=== PATIENT | male | born 1975 | race Caucasian/White ===

== ENCOUNTER 2016-09-25 13:01 | Emergency (ER) | payer MEDICARE, MEDICAID ==
[2016-09-25] MEDS ORDERED: OXYCODONE-ACETAMINOPHEN 5-325 MG TABLET PO ONE (13:11)
--- NOTE | 2016-09-25 13:11 | ER Document Report ---
ED Medical Screen (RME) - General Stated Complaint: BACK PAIN Notes: onset 2 days ago, c/o left flank pain. sharp stabbing pain that radiates to the front into his groin. admits to pain with urination, hematuria and dark urine, now yellow. denies any recent heavy lifting, trauma, fall denies h/o renal stone, pyelonephritis, rhabdo I have greeted and performed a rapid initial assessment of this patient. A comprehensive ED assessment and evaluation of the patient, analysis of test results and completion of the medical decision making process will be conducted by additional ED providers. TRAVEL OUTSIDE OF THE [place] IN LAST 30 DAYS: No - Related Data Allergies/Adverse Reactions: zolpidem tartrate [From Ambien] Allergy (Verified 09/25/16 13:04) Past Medical History - Past Medical History Cardiac Medical History: Reports: Hx Hypertension Pulmonary Medical History: Reports: Hx Pneumonia GI Medical History: Reports: Hx Gastroesophageal Reflux Disease, Hx Ulcer Psychiatric Medical History: Reports: Hx Depression Past Surgical History: Reports: Hx Orthopedic Surgery - spine x9 - Immunizations Hx Diphtheria, Pertussis, Tetanus Vaccination: Yes Physical Exam - Vital signs Vitals: Temp Pulse Resp BP Pulse Ox 97.5 F 91 18 155/104 H 100 09/25/16 13:06 09/25/16 13:06 09/25/16 13:06 09/25/16 13:06 09/25/16 13:06 Course - Vital Signs Vital signs: Temp Pulse Resp BP Pulse Ox 97.5 F 91 18 155/104 H 100 09/25/16 13:06 09/25/16 13:06 09/25/16 13:06 09/25/16 13:06 09/25/16 13:06
[2016-09-25] MEDS ORDERED: ONDANSETRON 4 MG TAB.RAPDIS PO ONE (13:13)
[2016-09-25 13:46] LABS: ABSOLUTE BASOPHILS # (AUTO) 0.1 10^3/uL (0.0-0.2); ABSOLUTE EOSINOPHILS # (AUTO) 0.1 10^3/uL (0.0-0.6); ABSOLUTE LYMPHOCYTES (AUTO) 1.5 10^3/uL (0.5-4.7); ABSOLUTE MONOCYTES (AUTO) 0.4 10^3/uL (0.1-1.4); ABSOLUTE NEUT (AUTO) 4.7 10^3/uL (1.7-8.2); BASOPHILS % (AUTO) 1.1 % (0-2); EOSINOPHILS % (AUTO) 1.4 % (0-6); HEMATOCRIT 41.9 % (37.9-51.0); HEMOGLOBIN 13.8 g/dL (13.5-17.0); HGB HCT DIFFERENCE -0.5; LYMPHOCYTES % (AUTO) 22.4 % (13-45); MEAN CORPUSCULAR HEMOGLOBIN 29.9 pg (27.0-33.4); MEAN CORPUSCULAR HGB CONC 33.1 g/dL (32.0-36.0); MEAN CORPUSCULAR VOLUME 90 fl (80-97); MONOCYTES % (AUTO) 5.5 % (3-13); RED BLOOD COUNT 4.64 10^6/uL (4.35-5.55); RED CELL DISTRIBUTION WIDTH 15.4 % (11.5-14.0); SEGMENTED NEUTROPHILS % (AUTO) 69.6 % (42-78); WHITE BLOOD COUNT 6.8 10^3/uL (4.0-10.5)
[2016-09-25 13:47] LABS: APPEARANCE,URINE CLEAR; BILIRUBIN,URINE NEGATIVE (NEGATIVE); GLUCOSE, URINE NEGATIVE (NEGATIVE); KETONES,URINE NEGATIVE (NEGATIVE); LEUKOCYTE ESTERASE,URINE NEGATIVE (NEGATIVE); NITRITE,URINE NEGATIVE (NEGATIVE); PROTEIN,URINE NEGATIVE (NEGATIVE); URINE SPECIFIC GRAVITY 1.001; UROBILINOGEN,URINE NEGATIVE mg/dL (<2.0)
[2016-09-25 14:00] LABS: ALANINE AMINOTRANSFERASE 22 U/L (21-72); ALBUMIN 4.7 g/dL (3.5-5.0); ALKALINE PHOSPHATASE 74 U/L (38-126); ANION GAP 11 (5-19); ASPARTATE AMINO TRANSFERASE 14 U/L (17-59); BILIRUBIN,TOTAL 0.5 mg/dL (0.2-1.3); BLOOD UREA NITROGEN 10 mg/dL (7-20); CALCIUM 9.8 mg/dL (8.4-10.2); CARBON DIOXIDE 27 mmol/L (22-30); CHLORIDE 106 mmol/L (98-107); CREATINE KINASE 46 U/L (55-170); CREATININE RESULT 0.77 mg/dL (0.52-1.25); GLUCOSE 93 mg/dL (75-110); POTASSIUM 4.4 mmol/L (3.6-5.0); SODIUM 144.2 mmol/L (137-145); TOTAL PROTEIN 7.8 g/dL (6.3-8.2)
--- NOTE | 2016-09-25 15:21 | ER Document Report ---
ED General - General Chief Complaint: Flank Pain Stated Complaint: BACK PAIN Mode of Arrival: Ambulatory Information source: Patient Notes: Patient is a 41 yo male who presents with 2 day history of left flank pain, described as sharp and stabbing that radiates to his groin. He endorses associated nausea, dysuria, hematuria and discoloration of urine and yesterday, he describes a sensation of "urinating sand spurs" that resolved suddenly. He denies any history of kidney stones. Denies fever, chills, vomiting, diarrhea, abdominal/groin mass, penile discharge or testicular pain. He has tried tylenol and ibuprofen without relief. TRAVEL OUTSIDE OF THE [place] IN LAST 30 DAYS: No - Related Data Allergies/Adverse Reactions: zolpidem tartrate [From Ambien] Allergy (Verified 09/25/16 13:04) Past Medical History - Social History Smoking Status: Current Every Day Smoker Chew tobacco use (# tins/day): Yes - 1/2ppd Frequency of alcohol use: None Drug Abuse: None Family History: Reviewed & Not Pertinent Patient has suicidal ideation: No Patient has homicidal ideation: No - Past Medical History Cardiac Medical History: Reports: Hx Hypertension Pulmonary Medical History: Reports: Hx Pneumonia Renal/ Medical History: Denies: Hx Peritoneal Dialysis GI Medical History: Reports: Hx Gastroesophageal Reflux Disease, Hx Ulcer Psychiatric Medical History: Reports: Hx Depression Past Surgical History: Reports: Hx Orthopedic Surgery - spine x9 - Immunizations Hx Diphtheria, Pertussis, Tetanus Vaccination: Yes Review of Systems - Review of Systems Constitutional: See HPI EENT: No symptoms reported Cardiovascular: No symptoms reported Respiratory: No symptoms reported Gastrointestinal: See HPI Genitourinary: See HPI Male Genitourinary: No symptoms reported Musculoskeletal: No symptoms reported Skin: No symptoms reported Hematologic/Lymphatic: No symptoms reported Neurological/Psychological: No symptoms reported Physical Exam - Vital signs Vitals: Temp Pulse Resp BP Pulse Ox 97.5 F 88 18 155/104 H 100 09/25/16 13:04 09/25/16 13:04 09/25/16 13:04 09/25/16 13:04 09/25/16 13:04 Interpretation: Hypertensive - Notes Notes: PHYSICAL EXAM: CONSTITUTIONAL: Alert and oriented, well-appearing and in no acute distress. Appears uncomfortable. HENT: Normocephalic, atraumatic. Moist mucous membranes. EYES: Pupils equal round and reactive to light, EOM intact. Sclera anicteric, conjunctiva are normal. No entrapment. HEART: Regular rate and rhythm without murmurs. LUNGS: CTAB and equal. No wheezes, rales or rhonchi. GI: Normactive bowel sounds. Nontender, non-distended. No organomegaly. + L CVAT. BACK: tender to palpation of left lumbar musculature with mild paraspinous spasm , 5+/5 strengths, DTRs 2+, SLR -. EXTREMITIES: Normal range of motion, no pitting edema. No cyanosis. Cap Refill < 3 seconds. NEURO: Cranial nerves grossly intact. Normal sensory/motor exams. PSYCH: Normal mood, normal affect. SKIN: Warm and dry. Normal turgor. No rashes or lesions noted. Course - Re-evaluation Re-evalutation: 09/25/16 15:21 I have consulted with the supervisory physician per [facility] guidelines. 09/25/16 15:23 Reviewed lab work and imaging studies - no leukocytosis, urinalysis is unremarkable, chem panel within normal limits. CT of A/P w/o cont is negative for nephrolithiasis or other acute abnormalities/findings. Exam consistent with lumbar back pain and muscle spasms. Based on history, suspect patient most likely has already passed stone. He states he has script for flexeril at home. Will discharge home in stable condition with script for pain med. Follow-up with PMD. - Vital Signs Vital signs: Temp Pulse Resp BP Pulse Ox 97.3 F 80 18 137/87 H 99 09/25/16 15:30 09/25/16 15:30 09/25/16 15:30 09/25/16 15:30 09/25/16 15:30 - Laboratory Result Diagrams: 09/25/16 13:25 09/25/16 13:25 Laboratory results interpreted by me: 09/25/16 09/25/16 13:25 13:25 RDW 15.4 H AST 14 L Creatine Kinase 46 L Discharge - Discharge Clinical Impression: Muscle spasm of back Low back pain Qualifiers: Chronicity: acute Back pain laterality: left Sciatica presence: without sciatica Qualified Code(s): M54.5 - Low back pain Condition: Stable Disposition: HOME, SELF-CARE Additional Instructions: LOW BACK PAIN: Three out of every four people will have an episode of disabling back pain during their lifetime. Most commonly the pain is due to straining of the muscles and ligaments in the low back. Usual treatment includes: (1) Rest on a firm surface. Avoid lying on your stomach. (2) Ice pack the painful area. After a few days, gentle heat may be used intermittently to relax the area, or ice packs can be continued. (3) Medication may be needed -- muscle relaxers and antiinflammatory medicines are commonly used. (4) As the back improves, exercises are prescribed to strengthen the back and abdominal muscles. Your doctor will advise you on the proper care for your back at each stage in your recovery. You may be better in a few days -- or healing may take several weeks. If new symptoms of a "herniated disc" (radiation of pain, numbness, or tingling down the back of the leg or weakness in the leg) occur, you should be re-examined. Further testing may be necessary. ORAL NARCOTIC MEDICATION: You have been given a prescription for pain control. This medication is a narcotic. It's best taken with food, as nausea can result if taken on an empty stomach. Don't operate machinery or drive within six hours of taking this medication. Do not combine this medicine with alcohol, or with any medication which can cause sedation (such as cold tablets or sleeping pills) unless you get permission from the physician. Narcotics tend to cause constipation. If possible, drink plenty of fluids and eat a diet high in fiber and fruits. Please be aware that prescription narcotics also have the potential for abuse. People become addicted to these medications because of the general sense of wellbeing that they induce. This feeling along with a significant reduction in tension, anxiety, and aggression provides a stimulating seductive quality to these drugs. Once your pain is under control, we encourage you to discard your unused narcotics. MUSCLE RELAXERS: Muscle relaxing medications are usually prescribed for acute muscle spasm or injury to the neck and back. They are often combined with antiinflammatory pain medication for increased relief. You may stop the muscle relaxer when the pain and stiffness have improved. Start the medication again if spasms recur. Muscle relaxers may cause drowsiness, especially with the first dose. Do not operate machinery or drive while under the effects of the medication. Most muscle relaxers last up to 24 hours. Do not combine the medication with alcohol. ICE PACKS: Apply ice packs frequently against the painful area. Many different schedules are recommended, such as "20 minutes on, 20 minutes off" or "one hour ice, two hours rest." If you need to work, you may need to go longer between ice treatments. You should plan to have the area ice packed AT LEAST one fourth of the time. The ice should be applied over the wrap, tape, or splint, or over a layer of cloth -- not directly against the skin. Some ice bags have a built-in cloth and can be put directly on the skin. WARM PACKS: After approximately two days, apply gentle heat (such as a heating pad or hot water bottle) for about 20 to 30 minutes about every two hours -- at least four times daily. Warmth and elevation will help you make a more rapid recovery , and will ease the pain considerably. Do not use HOT heat, and never apply heat for longer than 30 minutes. The continuous heat can invisibly damage skin and muscles -- even when no burn is seen on the surface. Damaged muscles can make you MORE sore. FOLLOW-UP CARE: If you have been referred to a physician for follow-up care, call the physician s office for an appointment as you were instructed or within the next two days. If you experience worsening or a significant change in your symptoms, notify the physician immediately or return to the Emergency Department at any time for re-evaluation. Prescriptions: Tramadol HCl [Ultram] 50 mg PO Q8HP PRN #10 tablet PRN Reason: Naproxen [Naprosyn 250 mg Tablet] 250 mg PO DAILY PRN #14 tablet PRN Reason: Forms: Elevated Blood Pressure Referrals: GODFREY TERRAZAS MD [Primary Care Provider] - Follow up as needed
[2016-09-25 15:36] VITALS: BP 137/87
== END 2016-09-25 15:30 | disposition home or self-care (01) ==
LOC: ER 13:01
DX: M54.5 Low back pain (principal); M62.830 Muscle spasm of back; R11.0 Nausea; R30.0 Dysuria; R31.9 Hematuria, unspecified; I10 Essential (primary) hypertension; F17.200 Nicotine dependence, unspecified, uncomplicated; Z88.8 Allergy status to other drugs, medicaments and biological substances
CPT/HCPCS: 99284; 36415; 82550; 85025; 80053; 81001; 74176; A9270 ×2; S0119

== ENCOUNTER 2016-09-29 15:28 | Emergency (ER) | payer MEDICARE, MEDICAID ==
--- NOTE | 2016-09-29 15:42 | ER Document Report ---
ED Medical Screen (RME) - General Stated Complaint: GENERALIZED WEAKNESS Time seen by provider: 15:37 Mode of Arrival: Medic Information source: Patient Notes: 41-year-old male presents to ED from home via EMS for generalized pain with numbness in the right leg which is new, left leg is normally numb. He complains of chest pain that is reproducible radiating down his left arm since last night worse today. States yesterday he was stumbling around because of his legs being numb. states she gave him 4 baby aspirin. He states he took 2 of his clonidine. Blood pressure in RME is 156/109. In the EMS it was 210/100. I have greeted and performed a rapid initial assessment of this patient. A comprehensive ED assessment and evaluation of the patient, analysis of test results and completion of medical decision making process will be conducted by an additional ED providers. TRAVEL OUTSIDE OF THE [place] IN LAST 30 DAYS: No - Related Data Allergies/Adverse Reactions: zolpidem tartrate [From Ambien] Allergy (Verified 09/25/16 13:04) Past Medical History - Past Medical History Cardiac Medical History: Reports: Hx Hypertension Pulmonary Medical History: Reports: Hx Pneumonia Renal/ Medical History: Denies: Hx Peritoneal Dialysis GI Medical History: Reports: Hx Gastroesophageal Reflux Disease, Hx Ulcer Psychiatric Medical History: Reports: Hx Depression Past Surgical History: Reports: Hx Orthopedic Surgery - spine x9 - Immunizations Hx Diphtheria, Pertussis, Tetanus Vaccination: Yes
[2016-09-29 16:20] LABS: ABSOLUTE EOSINOPHILS # (AUTO) 0.1 10^3/uL (0.0-0.6); ABSOLUTE LYMPHOCYTES (AUTO) 1.9 10^3/uL (0.5-4.7); ABSOLUTE MONOCYTES (AUTO) 0.3 10^3/uL (0.1-1.4); ABSOLUTE NEUT (AUTO) 4.9 10^3/uL (1.7-8.2); BASOPHILS % (AUTO) 0.4 % (0-2); EOSINOPHILS % (AUTO) 1.9 % (0-6); HEMATOCRIT 40.4 % (37.9-51.0); HEMOGLOBIN 13.2 g/dL (13.5-17.0); HGB HCT DIFFERENCE -0.8; LYMPHOCYTES % (AUTO) 26.4 % (13-45); MEAN CORPUSCULAR HEMOGLOBIN 29.2 pg (27.0-33.4); MEAN CORPUSCULAR HGB CONC 32.6 g/dL (32.0-36.0); MEAN CORPUSCULAR VOLUME 90 fl (80-97); MONOCYTES % (AUTO) 4.3 % (3-13); RED BLOOD COUNT 4.51 10^6/uL (4.35-5.55); RED CELL DISTRIBUTION WIDTH 15.1 % (11.5-14.0); WHITE BLOOD COUNT 7.3 10^3/uL (4.0-10.5)
[2016-09-29 16:40] LABS: ALANINE AMINOTRANSFERASE 27 U/L (21-72); ALKALINE PHOSPHATASE 86 U/L (38-126); ANION GAP 10 (5-19); ASPARTATE AMINO TRANSFERASE 30 U/L (17-59); BILIRUBIN,TOTAL 0.3 mg/dL (0.2-1.3); BLOOD UREA NITROGEN 4 mg/dL (7-20); CALCIUM 9.4 mg/dL (8.4-10.2); CARBON DIOXIDE 28 mmol/L (22-30); CHLORIDE 106 mmol/L (98-107); CREATINE KINASE 605 U/L (55-170); CREATININE RESULT 0.81 mg/dL (0.52-1.25); GLUCOSE 97 mg/dL (75-110); MAGNESIUM 2.1 mg/dL (1.6-2.3); SODIUM 143.9 mmol/L (137-145); TOTAL PROTEIN 7.4 g/dL (6.3-8.2)
[2016-09-29 16:52] LABS: CREATINE KINASE MB 8.45 ng/mL (<4.55)
[2016-09-29 16:53] LABS: TROPONIN I < 0.012 ng/mL
[2016-09-29] MEDS ORDERED: DIPHENHYDRAMINE HCL 50 MG/ML VIAL IV ONE (18:00)
[2016-09-29] MEDS ORDERED: METOCLOPRAMIDE HCL INJ/PF 10 MG/2 ML SDV IV ONE (18:00)
[2016-09-29] MEDS ORDERED: NORMAL SALINE 1000 ML 1,000 ML IV PRN (18:00)
--- NOTE | 2016-09-29 18:00 | ER Document Report ---
ED General - General Chief Complaint: Pain All Over Stated Complaint: GENERALIZED WEAKNESS Time seen by provider: 17:57 Mode of Arrival: Medic Information source: Patient - Patient's sister, Relative Notes: This is a 41-year-old man with a history of chronic back pain after multiple surgeries (he does have a back stimulator device), currently under a lot of stress after losing his home and breaking up with his . He is currently living with his sister. He is brought in by EMS because of headache, chest pain , off balance, bad headache. He does state that he has a history of headaches and the sister confirms that there is a family history of most likely migraines. Patient states that these headaches get bad and it is bad now. He denies fever. Patient's sister states she gave him an extra clonidine because his blood pressure was elevated. TRAVEL OUTSIDE OF THE [place] IN LAST 30 DAYS: No - HPI Onset: Last week Onset/Duration: Gradual Quality of pain: Dull Severity: Severe Pain Level: 4 Associated symptoms: Other. denies: Chills, Nonproductive cough, Productive cough, Fever, Shortness of breath Exacerbated by: Movement - Chest wall pain Relieved by: Denies Similar symptoms previously: No Recently seen / treated by doctor: No - Related Data Allergies/Adverse Reactions: zolpidem tartrate [From Ambien] Allergy (Verified 09/29/16 15:41) Past Medical History - General Information source: Patient - Social History Smoking Status: Current Every Day Smoker Cigarette use (# per day): No Chew tobacco use (# tins/day): Yes - 1.5 ppd Frequency of alcohol use: None Drug Abuse: None Lives with: Family Family History: Reviewed & Not Pertinent Patient has suicidal ideation: No Patient has homicidal ideation: No - Past Medical History Cardiac Medical History: Reports: Hx Hypertension Pulmonary Medical History: Reports: Hx Pneumonia Renal/ Medical History: Denies: Hx Peritoneal Dialysis GI Medical History: Reports: Hx Gastroesophageal Reflux Disease, Hx Ulcer Musculoskeltal Medical History: Reports None Skin Medical History: Reports None Psychiatric Medical History: Reports: Hx Anxiety, Hx Depression Traumatic Medical History: Reports: None Infectious Medical History: Reports: None Past Surgical History: Reports: Hx Orthopedic Surgery - spine x9 - Immunizations Hx Diphtheria, Pertussis, Tetanus Vaccination: Yes Review of Systems - Review of Systems Constitutional: denies: Chills, Fever EENT: No symptoms reported Cardiovascular: No symptoms reported Respiratory: No symptoms reported Gastrointestinal: No symptoms reported Genitourinary: No symptoms reported Male Genitourinary: No symptoms reported Musculoskeletal: See HPI Skin: No symptoms reported Hematologic/Lymphatic: No symptoms reported Neurological/Psychological: See HPI Physical Exam - Vital signs Vitals: Temp Pulse Resp BP Pulse Ox 97.8 F 96 24 H 156/109 H 98 09/29/16 15:41 09/29/16 15:41 09/29/16 15:41 09/29/16 15:41 09/29/16 15:41 Notes: Physical exam: GENERAL: 41-year-old man, lethargic but easily aroused and oriented 3, no slurred speech HEAD: Atraumatic, normocephalic. EYES: Pupils equal round and reactive to light, extraocular movements intact, sclera anicteric, conjunctiva are normal. ENT: TMs normal, nares patent, oropharynx clear without exudates. Moist mucous membranes. NECK: Normal range of motion, supple without lymphadenopathy or JVD. LUNGS: Breath sounds clear to auscultation bilaterally and equal. No wheezes rales or rhonchi. HEART: Regular rate and rhythm without murmurs, rubs or gallops. ABDOMEN: Soft, normoactive bowel sounds. No tenderness to palpation. No guarding, no rebound. No masses appreciated. EXTREMITIES: Normal range of motion, no pitting or edema. No clubbing or cyanosis. NEUROLOGICAL: Cranial nerves II through XII grossly intact. Normal speech, moving all extremities. PSYCH: Normal mood, normal affect. SKIN: Warm, Dry, normal turgor, no rashes or lesions noted. Course - Re-evaluation Re-evalutation: 09/29/16 22:10 Note: About a long discussion with the patient and his sister is at the bedside. The patient has been in an off a lot of stress lately. He does have a history of migraines and the stress is gotten to him and his had a bad migraine. He is feeling better at this point. He had a lot of chest discomfort which was really musculoskeletal in nature: Chest wall tenderness with pain with movement. Making this pain worse, is the fact that he does have chronic back pain. He did have a a back stimulator but the wires have disengaged and it's no longer working. The head CT looks good tonight. I have low suspicion for an acute bleed. I did observe him in the ER and repeated cardiac enzymes and those of her main did good strength think that chest pain is really musculoskeletal in nature. I've spoken to him about his chronic pain and I recommended that he follow-up with the pain clinic here in [facility] (he is from [place] but is now living with his sister after breakup with his ). - Vital Signs Vital signs: Temp Pulse Resp BP Pulse Ox 97.5 F 70 14 130/84 H 99 09/29/16 20:46 09/29/16 20:46 09/29/16 20:46 09/29/16 20:46 09/29/16 20:46 - Laboratory Result Diagrams: 09/29/16 16:00 09/29/16 16:00 Laboratory results interpreted by me: 09/29/16 09/29/16 09/29/16 16:00 16:00 16:00 Hgb 13.2 L RDW 15.1 H BUN 4 L Creatine Kinase 605 H CK-MB (CK-2) 8.45 H - Diagnostic Test Radiology reviewed: Image reviewed, Reports reviewed - Chest x-ray shows no infiltrates. CT head is shows no bleed or mass effect. - EKG Interpretation by Me Rate: Normal Rhythm: NSR - EKG shows normal sinus rhythm with a ventricular rate of 88, no acute ST-T wave changes Discharge - Discharge Clinical Impression: migraine headache, chest wall pain, back pain Condition: Stable Disposition: HOME, SELF-CARE Instructions: Migraine Headache ([facility]), Chest Wall Pain ([facility]), Chronic Back Pain ([facility]), Oral Narcotic Medication ([facility]) Additional Instructions: Recommendations: Continue current medicines. Rest, drink plenty of fluids. See the narcotic instruction sheet. Take medicines as prescribed. Do not drive or operate machinery while on the narcotic. Follow-up with [facility] in [facility]. Keep in mind, the ER does record the amount pains prescriptions given out daily. An attempt to get folks with chronic pain to follow-up with the pain clinic, they will not repeat narcotic prescriptions for chronic pain. Prescriptions: Hydromorphone HCl [Dilaudid 2 Mg Tablet] 2 mg PO Q6H PRN #20 tablet PRN Reason: for pain Referrals: SALINA WHITMORE MD [ACTIVE STAFF] - Follow up in 3-5 days (call for appt)
[2016-09-29] MEDS ORDERED: HYDROMORPHONE HCL INJ/PF 2 MG/ML AMPULE IV ONE ×2 (19:59→21:45)
[2016-09-29 20:48] VITALS: BP 130/84
[2016-09-29] MEDS ORDERED: HYDROCODONE/ACETAMINOPHEN 5-325 MG 6 TAB/DSPK PO PRN (21:45)
--- NOTE | 2016-09-29 23:52 | EKG REPORT ---
SEVERITY:- NORMAL ECG - SINUS RHYTHM : Confirmed by: Grecia Nunes 29-Sep-2016 23:51:09
== END 2016-09-29 22:10 | disposition home or self-care (01) ==
LOC: ER 15:28
DX: G43.909 Migraine, unspecified, not intractable, without status migrainosus (principal); R07.89 Other chest pain; M79.1 Myalgia; R53.1 Weakness; F17.210 Nicotine dependence, cigarettes, uncomplicated; I10 Essential (primary) hypertension
CPT/HCPCS: 93005; 96376; 99284; 96361; 96374; 96375; 36415; 82553; 82550; 83735; 85025; 80053; 84484; 71020; 70450; 93010; J1200; J2765; J1170; J7030; A9270

== ENCOUNTER 2017-02-18 15:53 | Emergency (ER) | payer MEDICAID, MEDICARE ==
[2017-02-18] MEDS ORDERED: OXYCODONE-ACETAMINOPHEN 5-325 MG TABLET PO ONE (17:22)
--- NOTE | 2017-02-18 17:24 | ER Document Report ---
HPI - HPI Patient complains to provider of: back pain Onset: Yesterday Onset/Duration: Sudden Quality of pain: Sharp Pain Level: 4 Context: States that he has chronic low back pain in which he has had 9 surgical procedures on his back. Patient takes Valium, gabapentin and oxycodone for chronic back pain. Patient states that he is in the process of moving, take the TV up yesterday twisted and felt a pop in his back. Patient states that he then fell on the ground and the TV fell on top of him. Patient complains of low back pain that radiates in this pattern down the posterior aspect of his left lower extremity into his foot. Patient states that he has had radiculopathy chronically due to his low back pain. Patient states that his pain is typical pain he had in the past although seems more severe today. Patient states that he misplaced his pain medications during the move and has not had any pain medication for the past 2 days. Patient denies any fever, urinary retention or incontinence or IV drug use. Associated Symptoms: Other - low back pain. denies: Fever Exacerbated by: Movement Relieved by: Denies Similar symptoms previously: Yes Recently seen / treated by doctor: No - ROS ROS below otherwise negative: Yes Systems Reviewed and Negative: Yes All other systems reviewed and negative - CONSTITUTIONAL Constitutional: DENIES: Fever, Chills - NEURO Neurology: DENIES: Weakness - URINARY Urinary: DENIES: Dysuria Notes: no incontinence - MUSCULOSKELETAL Musculoskeletal: REPORTS: Extremity pain, Back Pain - DERM Skin Color: Normal Skin Problems: None Past Medical History - General Information source: Patient - Social History Smoking Status: Current Every Day Smoker Frequency of alcohol use: None Drug Abuse: None Occupation: none Lives with: Family Family History: Reviewed & Not Pertinent Patient has suicidal ideation: No Patient has homicidal ideation: No - Past Medical History Cardiac Medical History: Reports: Hx Hypertension Pulmonary Medical History: Reports: Hx Pneumonia Endocrine Medical History: Reports: Hx Diabetes Mellitus Type 2 Renal/ Medical History: Denies: Hx Peritoneal Dialysis GI Medical History: Reports: Hx Gastroesophageal Reflux Disease, Hx Ulcer Musculoskeltal Medical History: Reports Hx Arthritis, Reports Other - chronic back pain Psychiatric Medical History: Reports: Hx Anxiety, Hx Depression Past Surgical History: Reports: Hx Orthopedic Surgery - spine x9 - Immunizations Hx Diphtheria, Pertussis, Tetanus Vaccination: Yes Vertical Provider Document - CONSTITUTIONAL Agree With Documented VS: Yes Exam Limitations: No Limitations General Appearance: WD/WN, No Apparent Distress - INFECTION CONTROL TRAVEL OUTSIDE OF THE [place] IN LAST 30 DAYS: No - HEENT HEENT: Atraumatic, Normocephalic - NECK Neck: Normal Inspection, Supple - RESPIRATORY Respiratory: Breath Sounds Normal, No Respiratory Distress O2 Sat by Pulse Oximetry: 94 - CARDIOVASCULAR Cardiovascular: Regular Rhythm, No Murmur, Tachycardia - BACK Back: Abnormal Inspection - scar to Thoracic and lumbar spine consistent with patient's history of previous back surgeries. negative: CVA Tenderness-Right, CVA Tenderness-Left Notes: Left lower lumbar paraspinal tenderness - MUSCULOSKELETAL/EXTREMETIES Musculoskeletal/Extremeties: MAEW, FROM - NEURO Level of Consciousness: Awake, Alert, Appropriate Motor/Sensory: No Motor Deficit Notes: No saddle anesthesia, no foot drop, normal gait - DERM Integumentary: Warm, Dry, No Rash Course - Re-evaluation Re-evalutation: 02/18/17 18:54 Patient repeatedly requesting additional pain medication throughout ER visit. Patient would request additional pain medicine just minutes after receiving pain medication in ER. The patient presents with low back pain without signs of spinal cord compression , cauda equina syndrome, infection, aneurysm, or other serious etiology. The patient is neurologically intact. Given the extremely risk of these diagnoses further testing and evaluation for these possibilities does not appear to be indicated at this time. Patient has been instructed to return if the symptoms worsen or change in any way. - Vital Signs Vital signs: Temp Pulse Resp BP Pulse Ox 98.4 F 113 H 18 141/100 H 94 02/18/17 16:16 02/18/17 16:16 02/18/17 16:16 02/18/17 16:16 02/18/17 16:16 - Diagnostic Test Radiology reviewed: Reports reviewed Discharge - Discharge Clinical Impression: Hx of essential hypertension, History of chronic back pain Fall Qualifiers: Encounter type: initial encounter Qualified Code(s): W19.XXXA - Unspecified fall, initial encounter Low back pain Qualifiers: Chronicity: chronic Back pain laterality: left Sciatica presence: with sciatica Sciatica laterality: sciatica of left side Qualified Code(s): M54.42 - Lumbago with sciatica, left side Condition: Stable Disposition: HOME, SELF-CARE Instructions: Ice Packs ([facility]), Warm Packs ([facility]), Low Back Pain ([facility]), Sciatica ([facility]) Additional Instructions: Return immediately for any new or worsening symptoms Followup with your primary care provider, call tomorrow to make a followup appointment Take your pain medication that you have at home as prescribed You may use over the counter lidocaine patches as directed Prescriptions: Naproxen [Naprosyn 250 Nmg Tablet] 1 tab PO BID #14 tablet Forms: Elevated Blood Pressure Referrals: GODFREY TERRAZAS MD [Primary Care Provider] - Follow up tomorrow
[2017-02-18] MEDS ORDERED: LIDOCAINE 5% (700 MG) TRANSDERMAL ADH..PATCH TP ONE (17:53)
[2017-02-18] MEDS ORDERED: KETOROLAC TROMETHAMINE 60 MG/2 ML SDV IM ONE (17:53)
--- NOTE | 2017-02-18 18:34 | RADIOLOGY REPORT (SQ) ---
EXAM DESCRIPTION: L SPINE WHOLE COMPLETED DATE/TIME: 02/18/2017 6:19 pm REASON FOR STUDY: fall, back pain COMPARISON: 05/19/2014 NUMBER OF VIEWS: Five views TECHNIQUE: AP, lateral, oblique, and sacral radiographic images acquired of the lumbar spine. LIMITATIONS: None. FINDINGS: MINERALIZATION: Normal. SEGMENTATION: Normal. No transitional anatomy. ALIGNMENT: Stable. VERTEBRAE: Maintained height. No fracture or worrisome bone lesion. DISCS: Stable degree of degenerative change. POSTERIOR ELEMENTS: Pedicles and facets are intact. No pars defect or posterior arch defects. HARDWARE: Stable appearance of spinal stimulator. PARASPINAL SOFT TISSUES: Normal. PELVIS: Intact as visualized. No fractures or worrisome bone lesions. SI joints intact. OTHER: No other significant finding. IMPRESSION: No acute osseous abnormality. No significant change from prior study. TECHNICAL DOCUMENTATION: JOB ID: [id number] [employer]- All Rights Reserved
[2017-02-18 19:10] VITALS: BP 154/91
== END 2017-02-18 19:05 | disposition home or self-care (01) ==
LOC: ER 15:53
DX: M54.42 Lumbago with sciatica, left side (principal); I10 Essential (primary) hypertension; M54.9 Dorsalgia, unspecified; Z79.899 Other long term (current) drug therapy; M54.5 Low back pain; G89.29 Other chronic pain; F17.200 Nicotine dependence, unspecified, uncomplicated; W19.XXXA Unspecified fall, initial encounter
CPT/HCPCS: 99283; 96372; 72110; J1885; A9270

== ENCOUNTER 2017-07-10 22:16 | Emergency (ER) | payer MEDICARE, MEDICAID ==
[2017-07-11] MEDS ORDERED: OXYCODONE-ACETAMINOPHEN 5-325 MG TABLET PO ONE (00:41)
[2017-07-11] MEDS ORDERED: CLINDAMYCIN HCL 150 MG CAPSULE PO ONE (00:41)
[2017-07-11] MEDS ORDERED: LIDOCAINE 1% INJ-PF (10 MG/ML) 30 ML SDV INJ ONE (00:41)
[2017-07-11] MEDS ORDERED: HYDROMORPHONE HCL INJ/PF 2 MG/ML AMPULE IM ONE (01:25)
--- NOTE | 2017-07-11 01:27 | ER Document Report ---
ED General - General Chief Complaint: Insect Bite Stated Complaint: CHEST PAIN Time Seen by Provider: 07/11/17 00:33 Mode of Arrival: Ambulatory Information source: Patient Notes: 42-year-old male presents with complaints of spider bite to the left arm. Patient notes area of redness has gone up his arm after he tried to cut it open with a razor himself. Patient notes pus to drain foul-smelling. He states he did take a spider off his arm. He denies any fevers or chills denies any nausea vomiting or diarrhea. Patient notes the pain radiates from his arm to his chest and to his side TRAVEL OUTSIDE OF THE [place] IN LAST 30 DAYS: No - HPI Onset: Just prior to arrival Onset/Duration: Sudden Quality of pain: Sharp Severity: Moderate Pain Level: 3 Associated symptoms: Body/muscle aches Exacerbated by: Denies Relieved by: Denies Similar symptoms previously: No Recently seen / treated by doctor: No - Related Data Allergies/Adverse Reactions: zolpidem tartrate [From Ambien] Allergy (Verified 02/18/17 16:15) Past Medical History - Social History Smoking Status: Current Every Day Smoker Cigarette use (# per day): Yes Chew tobacco use (# tins/day): No Smoking Education Provided: No Frequency of alcohol use: Social Family History: Reviewed & Not Pertinent Patient has suicidal ideation: No Patient has homicidal ideation: No - Past Medical History Cardiac Medical History: Reports: Hx Hypertension Pulmonary Medical History: Reports: Hx Pneumonia Endocrine Medical History: Reports: Hx Diabetes Mellitus Type 2 Renal/ Medical History: Denies: Hx Peritoneal Dialysis GI Medical History: Reports: Hx Gastroesophageal Reflux Disease, Hx Ulcer Musculoskeltal Medical History: Reports Hx Arthritis Psychiatric Medical History: Reports: Hx Anxiety, Hx Depression Past Surgical History: Reports: Hx Orthopedic Surgery - spine x9 - Immunizations Hx Diphtheria, Pertussis, Tetanus Vaccination: Yes Review of Systems - Review of Systems Notes: REVIEW OF SYSTEMS: CONSTITUTIONAL : Denies fever, chills, or sweats. Denies recent illness. EENT: Denies eye, ear, throat, or mouth pain or symptoms. Denies nasal or sinus congestion or discharge. Denies throat, tongue, or mouth swelling or difficulty swallowing. CARDIOVASCULAR: Denies chest pain. Denies palpitations or racing or irregular heart beat. Denies ankle edema. RESPIRATORY: Denies cough, cold, or chest congestion. Denies shortness of breath, difficulty breathing, or wheezing. GASTROINTESTINAL: Denies abdominal pain or distention. Denies nausea, vomiting , or diarrhea. Denies blood in vomitus, stools, or per rectum. Denies black, tarry stools. Denies constipation. GENITOURINARY: Denies difficulty urinating, painful urination, burning, frequency, blood in urine, or discharge. MUSCULOSKELETAL: Denies back or neck pain or stiffness. Denies joint pain or swelling. SKIN: Admits to left bicep abscess HEMATOLOGIC : Denies easy bruising or bleeding. LYMPHATIC: Denies swollen, enlarged glands. NEUROLOGICAL: Denies confusion or altered mental status. Denies passing out or loss of consciousness. Denies dizziness or lightheadedness. Denies headache. Denies weakness or paralysis or loss of use of either side. Denies problems with gait or speech. Denies sensory loss, numbness, or tingling. Denies seizures. PSYCHIATRIC: Denies anxiety or stress. Denies depression, suicidal ideation, or homicidal ideation. ALL OTHER SYSTEMS REVIEWED AND NEGATIVE. Dictation was performed using [employer] voice recognition software PHYSICAL EXAMINATION: GENERAL: Well-appearing, well-nourished and in no acute distress. HEAD: Atraumatic, normocephalic. EYES: Pupils equal round and reactive to light, extraocular movements intact, sclera anicteric, conjunctiva are normal. ENT: Nares patent, oropharynx clear without exudates. Moist mucous membranes. NECK: Normal range of motion, supple without lymphadenopathy LUNGS: Breath sounds clear to auscultation bilaterally and equal. No wheezes rales or rhonchi. HEART: Regular rate and rhythm without murmurs ABDOMEN: Soft, nontender, nondistended abdomen. No guarding, no rebound. No masses appreciated. Musculoskeletal: Normal range of motion, no pitting or edema. No cyanosis. NEUROLOGICAL: Cranial nerves grossly intact. Normal speech, normal gait. Normal sensory, motor exams PSYCH: Normal mood, normal affect. SKIN: Left arm abscess just lateral to the antecubital with cellulitis streaking to the mid bicep Physical Exam - Vital signs Vitals: Temp Pulse Resp BP Pulse Ox 99.4 F 107 H 20 155/107 H 97 07/10/17 22:47 07/10/17 22:47 07/10/17 22:47 07/10/17 22:47 07/10/17 22:47 Course - Re-evaluation Re-evalutation: 07/11/17 02:44 Area was anesthesized incised, large amount of foul smelling pus noted. Pt given antibiotics, instructed on return in 48 hours for recheck. Pts chest pain is completely related to the abscess. pt will be dc home on antibiotics After performing a Medical Screening Examination, I estimate there is LOW risk for OPEN FRACTURE, COMPARTMENT SYNDROME, TENDON RUPTURE, ACUTE NEUROVASCULAR INJURY, or RETAINED FOREIGN BODY, thus I consider the discharge disposition reasonable. Also, there is no evidence or peritonitis, sepsis, or toxicity. I have reevaluated this patient multiple times and no significant life threatening changes are noted. The patient and I have discussed the diagnosis and risks, and we agree with discharging home with close follow-up with the understanding that symptoms and presentations can change. We also discussed returning to the Emergency Department immediately if new or worsening symptoms occur. We have discussed the symptoms which are most concerning (e.g., changing or worsening pain, fever, numbness, weakness, cool or painful digits) that necessitate immediate return. - Vital Signs Vital signs: Temp Pulse Resp BP Pulse Ox 99.0 F 96 16 179/94 H 99 07/11/17 01:56 07/11/17 01:56 07/11/17 01:56 07/11/17 01:56 07/11/17 01:56 Procedures - Incision and Drainage Left Arm Time completed: 02:46 Type: Simple Anesthetic type: 1% Lidocaine mL's of anesthetic: 10 Blade size: 11 I&D procedure: Sterile dressing applied Incision Method: Incision made by scalpel Amount/type of drainage: large amount of pus Discharge - Discharge Clinical Impression: Abscess Condition: Stable Disposition: HOME, SELF-CARE Instructions: Post Incision and Drainage Prescriptions: Clindamycin HCl 300 mg PO Q6 #40 capsule Referrals: GODFREY TERRAZAS MD [Primary Care Provider] - Follow up in 3-5 days
[2017-07-11 01:58] VITALS: BP 179/94
--- NOTE | 2017-07-12 06:02 | EKG REPORT ---
SEVERITY:- OTHERWISE NORMAL ECG - SINUS TACHYCARDIA : Confirmed by: Ranjana Epperson MD 12-Jul-2017 06:00:47
== END 2017-07-11 01:56 | disposition home or self-care (01) ==
LOC: ER 22:16
PROC: 0H9CXZZ Drainage of Left Upper Arm Skin, External Approach (ICD-10-PCS; principal; 2017-07-10)
DX: L02.414 Cutaneous abscess of left upper limb (principal); F17.210 Nicotine dependence, cigarettes, uncomplicated; I10 Essential (primary) hypertension; E11.9 Type 2 diabetes mellitus without complications
CPT/HCPCS: 93005; 99283; 96372; 93010; 10060; A9270 ×2; J3490; J1170

== ENCOUNTER 2018-02-17 12:27 | Emergency (ER) | payer MEDICARE, MEDICAID ==
--- NOTE | 2018-02-17 13:51 | ER Document Report ---
ED Medical Screen (RME) - General Chief Complaint: Headache Stated Complaint: HEADACHE Time Seen by Provider: 02/17/18 13:33 Notes: 43-year-old male patient past history of chronic pain management, multiple back surgeries. He now reports about a 3 week history of intermittent headaches that seem to start in his left posterior cervical region going up over top of his head. He also has been experiencing what he calls "brown out". These are not necessarily associated with the headaches. These episodes are very suggestive of absence seizure activity. He reports one day or working on a lawnmower and the next thing he knew he was a mile from his home walking down the road and socks and shorts. Another time he became alert holding a hammer and nails with no clue why he was holding them. He was woke up on his steps. Last night was at a relatives house and they told him he was "speaking gibberish " and then when he became alert and oriented he was fine and had no recollection of this. I have greeted and performed a rapid initial assessment of this patient. A comprehensive ED assessment and evaluation of the patient, analysis of test results and completion of the medical decision making process will be conducted by additional ED providers. TRAVEL OUTSIDE OF THE [place] IN LAST 30 DAYS: No - Related Data Allergies/Adverse Reactions: zolpidem tartrate [From Ambien] Allergy (Verified 02/18/17 16:15) Past Medical History - Social History Chew tobacco use (# tins/day): No Frequency of alcohol use: None Drug Abuse: Marijuana - Past Medical History Cardiac Medical History: Reports: Hx Hypertension Pulmonary Medical History: Reports: Hx Pneumonia Endocrine Medical History: Reports: Hx Diabetes Mellitus Type 2 Renal/ Medical History: Denies: Hx Peritoneal Dialysis GI Medical History: Reports: Hx Gastroesophageal Reflux Disease, Hx Ulcer Musculoskeltal Medical History: Reports Hx Arthritis Psychiatric Medical History: Reports: Hx Anxiety, Hx Depression Past Surgical History: Reports: Hx Orthopedic Surgery - spine x9 - Immunizations Hx Diphtheria, Pertussis, Tetanus Vaccination: Yes Physical Exam - Vital signs Vitals: Temp Pulse Resp BP Pulse Ox 98.7 F 93 16 169/98 H 96 02/17/18 12:55 02/17/18 12:55 02/17/18 12:55 02/17/18 12:55 02/17/18 12:55 Course - Vital Signs Vital signs: Temp Pulse Resp BP Pulse Ox 98.7 F 93 16 169/98 H 96 02/17/18 12:55 02/17/18 12:55 02/17/18 12:55 02/17/18 12:55 02/17/18 12:55 Doctor's Discharge - Discharge Referrals: GODFREY TERRAZAS MD [Primary Care Provider] - Follow up as needed
[2018-02-17 14:15] LABS: ABSOLUTE BASOPHILS # (AUTO) 0.1 10^3/uL (0.0-0.2); ABSOLUTE EOSINOPHILS # (AUTO) 0.2 10^3/uL (0.0-0.6); ABSOLUTE LYMPHOCYTES (AUTO) 2.7 10^3/uL (0.5-4.7); ABSOLUTE MONOCYTES (AUTO) 0.8 10^3/uL (0.1-1.4); ABSOLUTE NEUT (AUTO) 6.7 10^3/uL (1.7-8.2); BASOPHILS % (AUTO) 0.5 % (0-2); EOSINOPHILS % (AUTO) 2.2 % (0-6); HEMATOCRIT 39.6 % (37.9-51.0); HEMOGLOBIN 13.2 g/dL (13.5-17.0); LYMPHOCYTES % (AUTO) 25.7 % (13-45); MEAN CORPUSCULAR HEMOGLOBIN 30.3 pg (27.0-33.4); MEAN CORPUSCULAR HGB CONC 33.3 g/dL (32.0-36.0); MEAN CORPUSCULAR VOLUME 91 fl (80-97); MONOCYTES % (AUTO) 7.7 % (3-13); PLATELET COUNT 197 10^3/uL (150-450); RED BLOOD COUNT 4.35 10^6/uL (4.35-5.55); RED CELL DISTRIBUTION WIDTH 15.5 % (11.5-14.0); SEGMENTED NEUTROPHILS % (AUTO) 63.9 % (42-78); TOTAL CELLS COUNTED % (AUTO) 100 %; WHITE BLOOD COUNT 10.4 10^3/uL (4.0-10.5)
[2018-02-17 14:32] LABS: ALANINE AMINOTRANSFERASE 20 U/L (21-72); ALBUMIN 4.6 g/dL (3.5-5.0); ALKALINE PHOSPHATASE 78 U/L (38-126); ANION GAP 13 (5-19); ASPARTATE AMINO TRANSFERASE 20 U/L (17-59); BILIRUBIN,DIRECT 0.3 mg/dL (0.0-0.4); BILIRUBIN,TOTAL 0.3 mg/dL (0.2-1.3); BLOOD UREA NITROGEN 8 mg/dL (7-20); CALCIUM 9.4 mg/dL (8.4-10.2); CARBON DIOXIDE 29 mmol/L (22-30); CHLORIDE 100 mmol/L (98-107); GLUCOSE 103 mg/dL (75-110); POTASSIUM 4.1 mmol/L (3.6-5.0); SODIUM 142.2 mmol/L (137-145); TOTAL PROTEIN 7.8 g/dL (6.3-8.2)
--- NOTE | 2018-02-17 14:32 | RADIOLOGY REPORT (SQ) ---
EXAM DESCRIPTION: CT HEAD WITHOUT COMPLETED DATE/TIME: 02/17/2018 2:08 pm REASON FOR STUDY: New onset lengthy absence seizure-like episodes COMPARISON: CT brain 09/29/2016, 06/17/2015, 03/13/2012, 03/15/2010 TECHNIQUE: Axial images acquired through the brain without intravenous contrast. Images reviewed wi th bone, brain and subdural windows. Additional sagittal and coronal reconstructions were generated. Images stored on PACS. All CT scanners at this facility use dose modulation, iterative reconstruction, and/or weight based d osing when appropriate to reduce radiation dose to as low as reasonably achievable (ALARA). [facility]: Dose Right [facility]: CareDose [facility]: Dose Right [facility]: Teradose 4D [facility]: Click With Me Now RADIATION DOSE: CT Rad equipment meets quality standard of care and radiation dose reduction techniq ues were employed. CTDIvol: 53.2 mGy. DLP: 991 mGy-cm. mGy. LIMITATIONS: None. FINDINGS: VENTRICLES: Normal size and contour. CEREBRUM: No masses. No hemorrhage. No midline shift. No evidence for acute infarction. Normal gra y/white matter differentiation. No areas of low density in the white matter. CEREBELLUM: No masses. No hemorrhage. No alteration of density. No evidence for acute infarction. EXTRAAXIAL SPACES: No fluid collections. No masses. ORBITS AND GLOBE: No intra- or extraconal masses. Normal contour of globe without masses. CALVARIUM: No fracture. PARANASAL SINUSES: No fluid or mucosal thickening. SOFT TISSUES: No mass or hematoma. OTHER: No other significant finding. IMPRESSION: NORMAL BRAIN CT WITHOUT CONTRAST. EVIDENCE OF ACUTE STROKE: NO. COMMENT: Quality ID # [id number]: Final reports with documentation of one or more dose reduction techniques (e.g., Automated exposure control, adjustment of the mA and/or kV according to patient size, use of iterative reconstruction technique) TECHNICAL DOCUMENTATION: JOB ID: [id number] [employer]- All Rights Reserved Reading location - IP/workstation name: [email or web address]
[2018-02-17 15:46] LABS: APPEARANCE,URINE CLEAR; BILIRUBIN,URINE NEGATIVE (NEGATIVE); GLUCOSE, URINE >=500 mg/dL (NEGATIVE); KETONES,URINE NEGATIVE (NEGATIVE); LEUKOCYTE ESTERASE,URINE NEGATIVE (NEGATIVE); NITRITE,URINE NEGATIVE (NEGATIVE); PROTEIN,URINE NEGATIVE (NEGATIVE); URINE SPECIFIC GRAVITY 1.002; UROBILINOGEN,URINE NEGATIVE mg/dL (<2.0)
[2018-02-17 15:48] LABS: COLOR,URINE YELLOW
[2018-02-17] MEDS ORDERED: OXYCODONE-ACETAMINOPHEN 5-325 MG TABLET PO ONE (16:00)
[2018-02-17] MEDS ORDERED: CYCLOBENZAPRINE HCL 10 MG TABLET PO ONE (16:00)
--- NOTE | 2018-02-17 16:06 | ER Document Report ---
ED General - General Chief Complaint: Headache Stated Complaint: HEADACHE Time Seen by Provider: 02/17/18 13:33 Mode of Arrival: Ambulatory Information source: Patient Notes: 43-year-old male presents with 3 week duration intermittent headaches. Patient denies any fevers or chills notes it is in the back of his neck pulling on his head. Patient also notes intermittent episodes where he speaks gibberish and has episodes of blanking out, patient however is very specific about those episodes and can remember everything about them TRAVEL OUTSIDE OF THE [place] IN LAST 30 DAYS: No - HPI Onset: Other Onset/Duration: Intermittent Quality of pain: Achy Severity: Mild Pain Level: 1 Associated symptoms: Headache Exacerbated by: Denies Relieved by: Denies Similar symptoms previously: No Recently seen / treated by doctor: No - Related Data Allergies/Adverse Reactions: zolpidem tartrate [From Ambien] Allergy (Verified 02/18/17 16:15) Past Medical History - Social History Smoking Status: Current Every Day Smoker Cigarette use (# per day): Yes Chew tobacco use (# tins/day): No Smoking Education Provided: No Frequency of alcohol use: None Drug Abuse: Marijuana Family History: Reviewed & Not Pertinent Patient has suicidal ideation: No Patient has homicidal ideation: No - Past Medical History Cardiac Medical History: Reports: Hx Hypertension Pulmonary Medical History: Reports: Hx Pneumonia Endocrine Medical History: Reports: Hx Diabetes Mellitus Type 2 Renal/ Medical History: Denies: Hx Peritoneal Dialysis GI Medical History: Reports: Hx Gastroesophageal Reflux Disease, Hx Ulcer Musculoskeltal Medical History: Reports Hx Arthritis Psychiatric Medical History: Reports: Hx Anxiety, Hx Depression Past Surgical History: Reports: Hx Orthopedic Surgery - spine x9 - Immunizations Hx Diphtheria, Pertussis, Tetanus Vaccination: Yes Review of Systems - Review of Systems Notes: REVIEW OF SYSTEMS: CONSTITUTIONAL : Denies fever, chills, or sweats. Denies recent illness. EENT: Denies eye, ear, throat, or mouth pain or symptoms. Denies nasal or sinus congestion or discharge. Denies throat, tongue, or mouth swelling or difficulty swallowing. CARDIOVASCULAR: Denies chest pain. Denies palpitations or racing or irregular heart beat. Denies ankle edema. RESPIRATORY: Denies cough, cold, or chest congestion. Denies shortness of breath, difficulty breathing, or wheezing. GASTROINTESTINAL: Denies abdominal pain or distention. Denies nausea, vomiting , or diarrhea. Denies blood in vomitus, stools, or per rectum. Denies black, tarry stools. Denies constipation. GENITOURINARY: Denies difficulty urinating, painful urination, burning, frequency, blood in urine, or discharge. MUSCULOSKELETAL: Denies back or neck pain or stiffness. Denies joint pain or swelling. SKIN: Denies rash, lesions or sores. HEMATOLOGIC : Denies easy bruising or bleeding. LYMPHATIC: Denies swollen, enlarged glands. NEUROLOGICAL: Admits to headaches intermittent episodes of confusion PSYCHIATRIC: Denies anxiety or stress. Denies depression, suicidal ideation, or homicidal ideation. ALL OTHER SYSTEMS REVIEWED AND NEGATIVE. Dictation was performed using [employer] voice recognition software PHYSICAL EXAMINATION: GENERAL: Well-appearing, well-nourished and in no acute distress. HEAD: Atraumatic, normocephalic. EYES: Pupils equal round and reactive to light, extraocular movements intact, sclera anicteric, conjunctiva are normal. ENT: Nares patent, oropharynx clear without exudates. Moist mucous membranes. NECK: Normal range of motion, supple without lymphadenopathy LUNGS: Breath sounds clear to auscultation bilaterally and equal. No wheezes rales or rhonchi. HEART: Regular rate and rhythm without murmurs ABDOMEN: Soft, nontender, nondistended abdomen. No guarding, no rebound. No masses appreciated. Musculoskeletal: Normal range of motion, no pitting or edema. No cyanosis. Tenderness upon palpation of the cervical spine NEUROLOGICAL: Cranial nerves grossly intact. Normal speech, normal gait. Normal sensory, motor exams PSYCH: Normal mood, normal affect. SKIN: Warm, Dry, normal turgor, no rashes or lesions noted. Physical Exam - Vital signs Vitals: Temp Pulse Resp BP Pulse Ox 98.7 F 93 16 169/98 H 96 02/17/18 12:55 02/17/18 12:55 02/17/18 12:55 02/17/18 12:55 02/17/18 12:55 Course - Re-evaluation Re-evalutation: 02/17/18 16:07 Lab work noted no significant abnormality CT of the head was normal, I believe the patient's pain is related to cervical tension, I will treat him with Flexeril and give him a neurologist follow-up for these supposed to episodes of amnesia and gibberish notes After performing a Medical Screening Examination, I estimate there is LOW risk for ACUTE GLAUCOMA, TEMPORAL ARTERITIS, MENINGITIS, INCRANIAL HEMORRHAGE, or ISCHEMIC STROKE thus I consider the discharge disposition reasonable. I have reevaluated this patient multiple times and no significant life threatening changes are noted. The patient and I have discussed the diagnosis and risks, and we agree with discharging home with close follow-up with the understanding that symptoms and presentations can change. We also discussed returning to the Emergency Department immediately if new or worsening symptoms occur. We have discussed the symptoms which are most concerning (e.g., changing or worsening symptoms, new numbness or weakness, vomiting, fever) that necessitate immediate return. - Vital Signs Vital signs: Temp Pulse Resp BP Pulse Ox 98.7 F 93 16 169/98 H 96 02/17/18 12:55 02/17/18 12:55 02/17/18 12:55 02/17/18 12:55 02/17/18 12:55 - Laboratory Result Diagrams: 02/17/18 13:50 02/17/18 13:50 Laboratory results interpreted by me: 02/17/18 02/17/18 02/17/18 13:50 13:50 14:30 Hgb 13.2 L RDW 15.5 H ALT 20 L Urine Glucose (UA) >=500 H - Diagnostic Test Radiology reviewed: Reports reviewed Discharge - Discharge Clinical Impression: cervical tension headache Condition: Stable Disposition: HOME, SELF-CARE Instructions: Headache ([facility]) Prescriptions: Cyclobenzaprine HCl [Flexeril 10 mg Tablet] 10 mg PO TIDP PRN #15 tab PRN Reason: Referrals: GODFREY TERRAZAS MD [Primary Care Provider] - Follow up as needed SAIDA CASTANO MD [NO LOCAL MD] - Follow up tomorrow
[2018-02-17 16:30] VITALS: BP 150/85
== END 2018-02-17 16:31 | disposition home or self-care (01) ==
LOC: ER 12:27
DX: G44.209 Tension-type headache, unspecified, not intractable (principal); R41.0 Disorientation, unspecified; F17.210 Nicotine dependence, cigarettes, uncomplicated; I10 Essential (primary) hypertension; E11.9 Type 2 diabetes mellitus without complications
CPT/HCPCS: 99284; 36415; 85025; 80053; 81001; 70450; A9270 ×2

== ENCOUNTER 2018-03-10 21:29 | Emergency (ER) | payer MEDICARE, MEDICAID ==
[2018-03-11] MEDS ORDERED: MORPHINE SULFATE 10 MG/ML INJ IM ONE (00:09)
--- NOTE | 2018-03-11 00:09 | RADIOLOGY REPORT (SQ) ---
EXAM DESCRIPTION: XR KNEE 4 OR MORE VIEWS COMPLETED DATE/TME: 03/10/2018 22:00 CLINICAL HISTORY: 43 years, Male, pain and swelling COMPARISON: None. NUMBER OF VIEWS: Four TECHNIQUE: 1 AP, 2 oblique and 1 lateral views of the left knee joint LIMITATIONS: None. FINDINGS: Knee joint alignment is maintained. No acute fracture. An elongated calcification appears to be continuous with the anterior patella. Prepatellar soft tissue swelling. No suprapatellar joint effusion. IMPRESSION: No acute osseous finding of the left knee joint Prepatellar soft tissue swelling may be related to bursitis. 2011 [employer]- All Rights Reserved
--- NOTE | 2018-03-11 00:30 | ER Document Report ---
ED General - General Chief Complaint: Knee Pain Stated Complaint: KNEE PAIN Time Seen by Provider: 03/10/18 23:37 Mode of Arrival: Ambulatory Information source: Patient Notes: 43-year-old male with hypertension, diabetes, chronic back pain presents with complaint of left knee pain that started this morning upon awakening. Patient states that he noticed swelling of his left knee this morning. He states that it is tender to the touch. He does admit to falling last week but states that his knee hurt for 1 day improved and has not reoccurred until this morning. Patient is in pain management and does take oxycodone 10 mg every 6 hours as needed for pain. She denies any fever, chills, nausea, vomiting, history of gout. TRAVEL OUTSIDE OF THE [place] IN LAST 30 DAYS: No - HPI Onset: This morning Onset/Duration: Sudden, Persistent, Worse Quality of pain: Achy, Throbbing Severity: Mild Associated symptoms: None Exacerbated by: Walking Relieved by: Denies Similar symptoms previously: Yes Recently seen / treated by doctor: Yes - Related Data Allergies/Adverse Reactions: zolpidem tartrate [From Ambien] Allergy (Verified 03/10/18 21:32) Past Medical History - General Information source: Patient - Social History Smoking Status: Current Every Day Smoker Cigarette use (# per day): Yes - 10 Smoking Education Provided: Yes Frequency of alcohol use: Occasional Drug Abuse: None Lives with: Family Family History: Reviewed & Not Pertinent Patient has suicidal ideation: No Patient has homicidal ideation: No - Past Medical History Cardiac Medical History: Reports: Hx Hypertension Pulmonary Medical History: Reports: Hx Pneumonia Endocrine Medical History: Reports: Hx Diabetes Mellitus Type 2 Renal/ Medical History: Denies: Hx Peritoneal Dialysis GI Medical History: Reports: Hx Gastroesophageal Reflux Disease, Hx Ulcer Musculoskeletal Medical History: Reports Hx Arthritis Psychiatric Medical History: Reports: Hx Anxiety, Hx Depression Past Surgical History: Reports: Hx Orthopedic Surgery - spine x9 - Immunizations Hx Diphtheria, Pertussis, Tetanus Vaccination: Yes Review of Systems - Review of Systems Notes: REVIEW OF SYSTEMS: CONSTITUTIONAL : Denies fever, chills, or sweats. Denies recent illness. Denies weight loss, recent hospitalizations. EENT: Denies visual changes, eye pain. Denies nasal or sinus congestion or discharge. Denies sore throat, oral lesions, difficulty swallowing. CARDIOVASCULAR: Denies chest pain. Denies palpitations. Denies lower extremity edema. RESPIRATORY: Denies cough, cold, or chest congestion. Denies shortness of breath, wheezing. GASTROINTESTINAL: Denies abdominal pain or distention. Denies nausea, vomiting , or diarrhea. Denies blood in vomitus, stools, or per rectum. Denies black, tarry stools. Denies constipation. GENITOURINARY: Denies difficulty urinating, painful urination, frequency, blood in urine, or vaginal discharge. MUSCULOSKELETAL: Denies back or neck pain or stiffness. SKIN: Denies rash, lesions or sores. HEMATOLOGIC : Denies easy bruising or bleeding. LYMPHATIC: Denies swollen glands. NEUROLOGICAL: Denies confusion or altered mental status. Denies passing out or loss of consciousness. Denies dizziness or lightheadedness. Denies headache. Denies weakness or paralysis. Denies problems difficulty with ambulation, slurred speech. Denies sensory loss, numbness, or tingling. Denies seizures. PSYCHIATRIC: Denies anxiety or stress. Denies depression, suicidal ideation, or homicidal ideation. Denies visual or auditory hallucinations. Physical Exam - Vital signs Vitals: Temp Pulse Resp BP Pulse Ox 98.9 F 98 16 166/113 H 98 03/10/18 21:45 03/10/18 21:45 03/10/18 21:45 03/10/18 21:45 03/10/18 21:45 - Notes Notes: PHYSICAL EXAMINATION: GENERAL: Well-appearing, well-nourished and in no acute distress. HEAD: Atraumatic, normocephalic. EYES: Pupils equal round and reactive to light, extraocular movements intact, sclera anicteric, conjunctiva are normal. ENT: Nares patent, oropharynx clear without exudates. Moist mucous membranes. NECK: Normal range of motion, supple without lymphadenopathy LUNGS: Breath sounds clear to auscultation bilaterally and equal. No wheezes rales or rhonchi. HEART: Regular rate and rhythm without murmurs ABDOMEN: Soft, nontender, nondistended abdomen. No guarding, no rebound. No masses appreciated. Musculoskeletal: Normal range of motion, no pitting or edema. No cyanosis. Left knee with suprapatellar swelling, without redness, warmth. NEUROLOGICAL: Cranial nerves grossly intact. Normal speech, normal gait. Normal sensory, motor exams PSYCH: Normal mood, normal affect. SKIN: Warm, Dry, normal turgor, no rashes or lesions noted. Course - Re-evaluation Re-evalutation: Knee X-Ray 03/10/18 22:00 IMPRESSION: No acute osseous finding of the left knee joint Prepatellar soft tissue swelling may be related to bursitis. 2010 [email or web address]- All Rights Reserved 03/11/18 00:27 43-year-old male with history of hypertension, diabetes, chronic pain presents with left knee pain that started this morning. Patient does admit to an injury last week. X-ray significant for some patellar bursitis. Exam is not consistent with septic joint. Patient was given IM morphine and an Gold wrap during his ED course. Patient provided the opportunity to ask questions, and express concerns. Discharge instructions discussed. Patient is agreeable with discharge home. Return indications explained and discussed with the patient who displays understanding. Patient encouraged to return to the emergency department immediately with any concerns. - Vital Signs Vital signs: Temp Pulse Resp BP Pulse Ox 98.9 F 98 16 166/113 H 98 03/10/18 21:45 03/10/18 21:45 03/10/18 21:45 03/10/18 21:45 03/10/18 21:45 - Diagnostic Test Radiology reviewed: Image reviewed, Reports reviewed Discharge - Discharge Clinical Impression: Prepatellar bursitis Qualifiers: Laterality: left Qualified Code(s): M70.42 - Prepatellar bursitis, left knee Disposition: HOME, SELF-CARE Instructions: Bursitis ([facility]), Sprained Knee ([facility]), Ice & Elevation ([facility]), Oral Narcotic Medication ([facility]) Additional Instructions: Your x-ray today does not show any broken bones. It does show some mild soft tissue swelling. Please ice the knee and elevate consistently. Please wear Gold wrap during the day. Please follow-up with your pain management doctor for any further pain management needs. Prescriptions: Meloxicam [Mobic] 15 mg PO DAILY #14 tablet Referrals: GODFREY TERRAZAS MD [Primary Care Provider] - Follow up as needed
[2018-03-11 00:50] VITALS: BP 143/106
== END 2018-03-11 00:50 | disposition home or self-care (01) ==
LOC: ER 21:29
DX: M70.42 Prepatellar bursitis, left knee (principal); F17.210 Nicotine dependence, cigarettes, uncomplicated; I10 Essential (primary) hypertension; E11.9 Type 2 diabetes mellitus without complications
CPT/HCPCS: 99283; 73564; L1830; J2270

== ENCOUNTER 2018-10-27 16:27 | Inpatient (IN) | payer MEDICARE, MEDICAID ==
[2018-10-27] MEDS ORDERED: NORMAL SALINE 1000 ML 1,000 ML IV ONE (16:37)
[2018-10-27] MEDS ORDERED: NALOXONE HCL INJ/PF 0.4 MG/1 ML SDV IV ONE (16:38)
[2018-10-27] MEDS ORDERED: NALOXONE HCL INJ/PF 0.4 MG/1 ML SDV ONE (16:39)
[2018-10-27 16:54] LABS: HEMATOCRIT 42.2 % (37.9-51.0); HEMOGLOBIN 14.2 g/dL (13.5-17.0); MEAN CORPUSCULAR HGB CONC 33.7 g/dL (32.0-36.0); MEAN CORPUSCULAR VOLUME 89 fl (80-97); PLATELET COUNT 273 10^3/uL (150-450); RED BLOOD COUNT 4.74 10^6/uL (4.35-5.55); RED CELL DISTRIBUTION WIDTH 16.1 % (11.5-14.0)
--- NOTE | 2018-10-27 17:16 | ER Document Report ---
ED General - General Chief Complaint: Possible Overdose Stated Complaint: POSSIBLE OVERDOSE Time Seen by Provider: 10/27/18 16:36 Primary Care Provider: GODFREY TERRAZAS MD [Primary Care Provider] - Follow up as needed Notes: Patient is a 43-year-old male that presents to the emergency department for chief complaint of altered mental status. Patient was reportedly found on the ground at his home, surrounded by several empty pill bottles, mainly Valium, and oxycodone, he has had a history of suicide attempt in the past by overdose, he has been inpatient psych facilities in the past. His chronic back pain which ezra devine is prescribed these medicines for. Patient is altered at this time and unable to provide any significant history at this time, however his sister who has power of document review attorney over the patient is at bedside, and states that he has attempted overdoses in the past, he has been admitted to inpatient psych facilities in the past, she suspects that the patient was around individuals that use methamphetamines on a regular basis last night, but she has not seen him in about 3 days. He recently was having some transient thoughts about 3 days ago of suicide, but he typically is not a person that would attempt suicide despite his history in the past. So she is not entirely sure if this was intentional or accidental. Per EMS the patient was found having to urinated on himself, and defecated on himself. Past Medical History: Chronic low back pain depression Past Surgical History: 9 back surgeries Social History: Smokes cigarettes daily, alcohol use, and marijuana use Family History: Reviewed and noncontributory for presenting illness Allergies: Reviewed, see documented allergy list. REVIEW OF SYSTEMS: Complete review of systems is not obtainable at this time secondary to the patient's altered mental status. PHYSICAL EXAMINATION: Vital signs reviewed, nursing noted reviewed. GENERAL: Patient is disheveled appearing, alert and oriented x0, not following commands HEAD: Minor bruising noted to the face, and abrasions EYES: Pupils are dilated, sluggish to react, extraocular movements intact, sclera anicteric, conjunctiva are normal. ENT: nares patent, oropharynx clear without exudates. Dry mucous membranes NECK: Normal range of motion, supple without lymphadenopathy, not apparently tender LUNGS: Breath sounds clear to auscultation bilaterally and equal. No wheezes rales or rhonchi. HEART: Heart rate tachycardic, regular rhythm ABDOMEN: Soft, not apparently tender, normoactive bowel sounds. No rebound, guarding, or rigidity. No masses appreciated. EXTREMITIES: Nontender, good range of motion, no pitting or edema. NEUROLOGICAL: No focal neurological deficits. Moves all extremities spontaneously Motor and sensory grossly intact on exam. However patient is al ert and oriented x0, not following commands or direction at this time. PSYCH: Not following commands, just groaning SKIN: Warm, Dry, normal turgor, minor abrasions and bruising noted to the upper extremities, there is an abrasion along the hand as well. TRAVEL OUTSIDE OF THE [place] IN LAST 30 DAYS: No - Related Data Allergies/Adverse Reactions: zolpidem tartrate [From Ambien] Allergy (Verified 03/10/18 21:32) Past Medical History - Social History Smoking Status: Current Every Day Smoker Chew tobacco use (# tins/day): No Frequency of alcohol use: Heavy Drug Abuse: None Family History: Reviewed & Not Pertinent Patient has suicidal ideation: No Patient has homicidal ideation: No - Past Medical History Cardiac Medical History: Reports: Hx Hypertension Pulmonary Medical History: Reports: Hx Pneumonia Endocrine Medical History: Reports: Hx Diabetes Mellitus Type 2 Renal/ Medical History: Denies: Hx Peritoneal Dialysis GI Medical History: Reports: Hx Gastroesophageal Reflux Disease, Hx Ulcer Musculoskeletal Medical History: Reports Hx Arthritis Psychiatric Medical History: Reports: Hx Anxiety, Hx Depression Past Surgical History: Reports: Hx Orthopedic Surgery - spine x9 - Immunizations Hx Diphtheria, Pertussis, Tetanus Vaccination: Yes Physical Exam - Vital signs Vitals: Temp Resp 98.7 F 23 H 10/27/18 16:38 10/27/18 16:38 Course - Re-evaluation Re-evalutation: Patient seen and examined vital signs reviewed. Laboratory data and imaging were ordered as appropriate for the patient's pre senting symptoms and complaint, with consideration of any critical or life threatening conditions that may be associated with their obtained history and exam as noted above. Patient was treated with IV Narcan 0.4 mg, which did not significantly change the patient's mental status, he was given 2 L of IV fluids as well. Results were reviewed when available and demonstrated market leukocytosis, lik omar acute phase stress reactant, no obvious signs of acute infection, chest x- ray is negative, UA negative, urine tox is positive for marijuana, but negative for other, and drugs, he did have a slightly elevated lactate, likely secondary to the patient being found down, his CK was normal, patient was given IV fluids as noted above. The patient was re-evaluated and was more alert, and more purposeful, he did remove 1 of his IVs, which was then placed again, he is not explicitly following commands at this time, but is alert and looking around the room and moving all extremities. Evaluation was most consistent with acute encephalopathy, suspect toxic secondary to sympathomimetic agents, which are the patient cannot be medically cleared at this time, medically, but will need to be evaluated from a psychiatric standpoint as well. Results were discussed with the patient's sister and power of document review attorney at this point after careful consideration I feel that that patient should be admitted to the hospital. This was discussed with the patient's sister that it is in the best interest for their care to be admitted for further evaluation and management. Patient's sister and power of document review attorney agreed with this plan of care. A call was placed to the admitted physician, Dr. Canela who graciously accepted the patient onto their service. IVC paperwork was filled out for this patient, and sent to the [facility] for petition. *Note is created using voice recognition software and may contain spelling, syntax or grammatical errors. Laboratory 10/27/18 10/27/18 10/27/18 15:45 15:45 15:45 WBC 33.4 H* RBC 4.74 Hgb 14.2 Hct 42.2 MCV 89 MCH 30.0 MCHC 33.7 RDW 16.1 H Plt Count 273 Total Counted 100 Seg Neutrophils % Not Reportable Seg Neuts % (Manual) 86 H Band Neutrophils % 3 Lymphocytes % Not Reportable Lymphocytes % (Manual) 4 L Monocytes % Not Reportable Monocytes % (Manual) 7 Eosinophils % Not Reportable Eosinophils % (Manual) 0 Basophils % Not Reportable Basophils % (Manual) 0 Absolute Neutrophils Not Reportable Abs Neuts (Manual) 29.7 H Absolute Lymphocytes Not Reportable Abs Lymphs (Manual) 1.3 Absolute Monocytes Not Reportable Abs Monocytes (Manual) 2.3 H Absolute Eosinophils Not Reportable Absolute Eos (Manual) 0.0 Absolute Basophils Not Reportable Abs Basophils (Manual) 0.0 Toxic Granulation 1+ Toxic Vacuolation PRESENT Platelet Comment ADEQUATE Polychromasia SLIGHT Anisocytosis 1+ Sodium Cancelled Potassium Cancelled Chloride Cancelled Carbon Dioxide Cancelled Anion Gap Cancelled BUN Cancelled Creatinine Cancelled Est GFR ( Amer) Cancelled Est GFR (Non-Af Amer) Cancelled Glucose Cancelled Lactic Acid Calcium Cancelled Total Bilirubin Cancelled Direct Bilirubin Cancelled Neonat Total Bilirubin Cancelled Neonat Direct Bilirubin Cancelled Neonat Indirect Bili Cancelled AST Cancelled ALT Cancelled Alkaline Phosphatase Cancelled Creatine Kinase Cancelled Troponin I Total Protein Cancelled Albumin Cancelled Urine Color Urine Appearance Urine pH Ur Specific [place] Urine Protein Urine Glucose (UA) Urine Ketones Urine Blood Urine Nitrite Urine Bilirubin Urine Urobilinogen Ur Leukocyte Esterase Urine WBC (Auto) Urine RBC (Auto) Squamous Epi Cells Auto Urine Mucus (Auto) Urine Ascorbic Acid Salicylates Cancelled Urine Opiates Screen Urine Methadone Screen Acetaminophen Cancelled Ur Barbiturates Screen Ur Phencyclidine Scrn Ur Amphetamines Screen U Benzodiazepines Scrn Urine Cocaine Screen U Marijuana (THC) Screen Serum Alcohol Cancelled 10/27/18 10/27/18 10/27/18 18:20 18:20 18:20 WBC RBC Hgb Hct MCV MCH MCHC RDW Plt Count Total Counted Seg Neutrophils % Seg Neuts % (Manual) Band Neutrophils % Lymphocytes % Lymphocytes % (Manual) Monocytes % Monocytes % (Manual) Eosinophils % Eosinophils % (Manual) Basophils % Basophils % (Manual) Absolute Neutrophils Abs Neuts (Manual) Absolute Lymphocytes Abs Lymphs (Manual) Absolute Monocytes Abs Monocytes (Manual) Absolute Eosinophils Absolute Eos (Manual) Absolute Basophils Abs Basophils (Manual) Toxic Granulation Toxic Vacuolation Platelet Comment Polychromasia Anisocytosis Sodium 133.5 L Potassium 4.1 Chloride 97 L Carbon Dioxide 22 Anion Gap 15 BUN 13 Creatinine 0.67 Est GFR ( Amer) > 60 Est GFR (Non-Af Amer) > 60 Glucose 111 H Lactic Acid 2.3 H Calcium 9.8 Total Bilirubin 1.2 Direct Bilirubin 0.3 Neonat Total Bilirubin Not Reportable Neonat Direct Bilirubin Not Reportable Neonat Indirect Bili Not Reportable AST 25 ALT 23 Alkaline Phosphatase 94 Creatine Kinase 143 Troponin I < 0.012 Total Protein 7.7 Albumin 4.8 Urine Color Urine Appearance Urine pH Ur Specific [place] Urine Protein Urine Glucose (UA) Urine Ketones Urine Blood Urine Nitrite Urine Bilirubin Urine Urobilinogen Ur Leukocyte Esterase Urine WBC (Auto) Urine RBC (Auto) Squamous Epi Cells Auto Urine Mucus (Auto) Urine Ascorbic Acid Salicylates < 1.0 L Urine Opiates Screen Urine Methadone Screen Acetaminophen < 10 L Ur Barbiturates Screen Ur Phencyclidine Scrn Ur Amphetamines Screen U Benzodiazepines Scrn Urine Cocaine Screen U Marijuana (THC) Screen Serum Alcohol < 10 10/27/18 10/27/18 20:24 20:24 WBC RBC Hgb Hct MCV MCH MCHC RDW Plt Count Total Counted Seg Neutrophils % Seg Neuts % (Manual) Band Neutrophils % Lymphocytes % Lymphocytes % (Manual) Monocytes % Monocytes % (Manual) Eosinophils % Eosinophils % (Manual) Basophils % Basophils % (Manual) Absolute Neutrophils Abs Neuts (Manual) Absolute Lymphocytes Abs Lymphs (Manual) Absolute Monocytes Abs Monocytes (Manual) Absolute Eosinophils Absolute Eos (Manual) Absolute Basophils Abs Basophils (Manual) Toxic Granulation Toxic Vacuolation Platelet Comment Polychromasia Anisocytosis Sodium Potassium Chloride Carbon Dioxide Anion Gap BUN Creatinine Est GFR ( Amer) Est GFR (Non-Af Amer) Glucose Lactic Acid Calcium Total Bilirubin Direct Bilirubin Neonat Total Bilirubin Neonat Direct Bilirubin Neonat Indirect Bili AST ALT Alkaline Phosphatase Creatine Kinase Troponin I Total Protein Albumin Urine Color YELLOW Urine Appearance CLEAR Urine pH 9.0 Ur Specific [place] 1.015 Urine Protein NEGATIVE Urine Glucose (UA) NEGATIVE Urine Ketones 80 H Urine Blood NEGATIVE Urine Nitrite NEGATIVE Urine Bilirubin NEGATIVE Urine Urobilinogen NEGATIVE Ur Leukocyte Esterase NEGATIVE Urine WBC (Auto) 1 Urine RBC (Auto) 6 Squamous Epi Cells Auto <1 Urine Mucus (Auto) RARE Urine Ascorbic Acid NEGATIVE Salicylates Urine Opiates Screen NEGATIVE Urine Methadone Screen NEGATIVE Acetaminophen Ur Barbiturates Screen NEGATIVE Ur Phencyclidine Scrn NEGATIVE Ur Amphetamines Screen NEGATIVE U Benzodiazepines Scrn NEGATIVE Urine Cocaine Screen NEGATIVE U Marijuana (THC) Screen UNCONFIRMED POSITIVE Serum Alcohol Head CT 10/27/18 17:19 IMPRESSION: NORMAL BRAIN CT WITHOUT CONTRAST. EVIDENCE OF ACUTE STROKE: NO. Chest X-Ray 10/27/18 18:10 IMPRESSION: No acute disease. - Vital Signs Vital signs: Temp Pulse Resp BP Pulse Ox 98.7 F 18 155/89 H 100 10/27/18 16:38 10/27/18 17:01 10/27/18 17:01 10/27/18 17:01 - Laboratory Result Diagrams: 10/27/18 15:45 10/27/18 18:20 Laboratory results interpreted by me: 10/27/18 10/27/18 10/27/18 15:45 18:20 18:20 WBC 33.4 H* RDW 16.1 H Seg Neuts % (Manual) 86 H Lymphocytes % (Manual) 4 L Abs Neuts (Manual) 29.7 H Abs Monocytes (Manual) 2.3 H Sodium 133.5 L Chloride 97 L Glucose 111 H Lactic Acid 2.3 H Urine Ketones Salicylates < 1.0 L Acetaminophen < 10 L 10/27/18 20:24 WBC RDW Seg Neuts % (Manual) Lymphocytes % (Manual) Abs Neuts (Manual) Abs Monocytes (Manual) Sodium Chloride Glucose Lactic Acid Urine Ketones 80 H Salicylates Acetaminophen - EKG Interpretation by Me Additional EKG results interpreted by me: EKG demonstrates sinus rhythm with a ventricular rate of 88 bpm, normal axis, QTC somewhat prolonged at 489 ms, no evidence of acute ischemia on this EKG, compared to prior EKG from 07/10/2017, where the QTC is slightly prolonged at that time it was 457. Critical Care Note - Critical Care Note Total time excluding time spent on procedures (mins): 45 Comments: Critical care time 45 minutes exclusive from separate billable procedures for a patient requiring complex medical decision making, and high potential for clinical deterioration. In an altered patient, requiring close monitoring repeat evaluations and discussions with his sister at bedside. Time spent obtaining history from patient or surrogate, discussions with consultants, development of treatment plan with patient or surrogate, evaluation of patient's response to treatment, examination of patient, ordering and performing treatments and interventions, ordering and review of laboratory studies, re- evaluation of patient's condition, ordering and review of radiographic studies and review of old charts Discharge - Discharge Clinical Impression: Acute encephalopathy, Elevated lactic acid level Leukocytosis Qualifiers: Leukocytosis type: unspecified Qualified Code(s): D72.829 - Elevated white blood cell count, unspecified Condition: Stable Disposition: ADMITTED INPATIENT Admitting Provider: Hospitalist - Dr. Canela Unit Admitted: [facility]U Referrals: GODFREY TERRAZAS MD [Primary Care Provider] - Follow up as needed
[2018-10-27 17:19] LABS: WHITE BLOOD COUNT 33.4 10^3/uL (4.0-10.5)
[2018-10-27 17:21] LABS: ABSOLUTE LYMPHOCYTES# (MANUAL) 1.3 10^3/uL (0.5-4.7); ABSOLUTE MONOCYTES # (MANUAL) 2.3 10^3/uL (0.1-1.4); ABSOLUTE NEUTROPHILS# (MANUAL) 29.7 10^3/uL (1.7-8.2); BAND NEUTROPHILS % (MANUAL) 3 % (3-5); BASOPHILS % (MANUAL) 0 % (0-2); EOSINOPHILS % (MANUAL) 0 % (0-6); LYMPHOCYTES % (MANUAL) 4 % (13-45); MONOCYTES % (MANUAL) 7 % (3-13); SEGMENTED NEUTROPHILS % (MAN) 86 % (42-78); TOTAL CELLS COUNTED 100
[2018-10-27 17:22] LABS: ANISOCYTOSIS 1+; PLATELET COMMENT ADEQUATE; POLYCHROMASIA SLIGHT; TOXIC GRANULATION 1+; TOXIC VACUOLATION PRESENT
--- NOTE | 2018-10-27 17:51 | RADIOLOGY REPORT (SQ) ---
EXAM DESCRIPTION: CT HEAD WITHOUT COMPLETED DATE/TIME: 10/27/2018 5:42 pm REASON FOR STUDY: ams COMPARISON: None. TECHNIQUE: Axial images acquired through the brain without intravenous contrast. Images reviewed wi th bone, brain and subdural windows. Additional sagittal and coronal reconstructions were generated. Images stored on PACS. All CT scanners at this facility use dose modulation, iterative reconstruction, and/or weight based d osing when appropriate to reduce radiation dose to as low as reasonably achievable (ALARA). [facility]: Dose Right [facility]: CareDose [facility]: Dose Right [facility]: Teradose 4D [facility]: Knomo RADIATION DOSE: CT Rad equipment meets quality standard of care and radiation dose reduction techniq ues were employed. CTDIvol: 55.2 mGy. DLP: 1029 mGy-cm. mGy. LIMITATIONS: None. FINDINGS: VENTRICLES: Normal size and contour. CEREBRUM: No masses. No hemorrhage. No midline shift. No evidence for acute infarction. Normal gra y/white matter differentiation. No areas of low density in the white matter. CEREBELLUM: No masses. No hemorrhage. No alteration of density. No evidence for acute infarction. EXTRAAXIAL SPACES: No fluid collections. No masses. ORBITS AND GLOBE: No intra- or extraconal masses. Normal contour of globe without masses. CALVARIUM: No fracture. PARANASAL SINUSES: No fluid or mucosal thickening. SOFT TISSUES: No mass or hematoma. OTHER: No other significant finding. IMPRESSION: NORMAL BRAIN CT WITHOUT CONTRAST. EVIDENCE OF ACUTE STROKE: NO. COMMENT: Quality ID # [id number]: Final reports with documentation of one or more dose reduction techniques (e.g., Automated exposure control, adjustment of the mA and/or kV according to patient size, use of iterative reconstruction technique) TECHNICAL DOCUMENTATION: JOB ID: [id number] [email or web address]- All Rights Reserved Reading location - IP/workstation name: [email or web address]
[2018-10-27 18:58] LABS: ALANINE AMINOTRANSFERASE 23 U/L (21-72); ALBUMIN 4.8 g/dL (3.5-5.0); ALKALINE PHOSPHATASE 94 U/L (38-126); ANION GAP 15 (5-19); ASPARTATE AMINO TRANSFERASE 25 U/L (17-59); BILIRUBIN,DIRECT 0.3 mg/dL (0.0-0.4); BILIRUBIN,TOTAL 1.2 mg/dL (0.2-1.3); BLOOD UREA NITROGEN 13 mg/dL (7-20); CALCIUM 9.8 mg/dL (8.4-10.2); CARBON DIOXIDE 22 mmol/L (22-30); CHLORIDE 97 mmol/L (98-107); CREATINE KINASE 143 U/L (55-170); GLUCOSE 111 mg/dL (75-110); POTASSIUM 4.1 mmol/L (3.6-5.0); SODIUM 133.5 mmol/L (137-145); TOTAL PROTEIN 7.7 g/dL (6.3-8.2)
[2018-10-27 19:01] LABS: ACETAMINOPHEN < 10 ug/mL (10-30); ALCOHOL < 10 mg/dL (NONE DETECTED); SALICYLATE < 1.0 mg/dL (2.0-20.0)
[2018-10-27] MEDS ORDERED: RINGERS SOLUTION,LACTATED 1,000 ML IV ONE (19:08)
--- NOTE | 2018-10-27 20:10 | RADIOLOGY REPORT (SQ) ---
EXAM DESCRIPTION: XR CHEST 1 VIEW COMPLETED DATE/TME: 10/27/2018 18:10 CLINICAL HISTORY: 43 years, Male, altered mental status Compared to 09/29/2016. FINDINGS: The heart is not enlarged. Lungs are clear. No pleural effusion. No pneumothorax. IMPRESSION: No acute disease.
[2018-10-27 20:47] LABS: APPEARANCE,URINE CLEAR; BILIRUBIN,URINE NEGATIVE (NEGATIVE); COLOR,URINE YELLOW; GLUCOSE, URINE NEGATIVE (NEGATIVE); KETONES,URINE 80 mg/dL (NEGATIVE); LEUKOCYTE ESTERASE,URINE NEGATIVE (NEGATIVE); NITRITE,URINE NEGATIVE (NEGATIVE); PROTEIN,URINE NEGATIVE (NEGATIVE); URINE SPECIFIC GRAVITY 1.015; UROBILINOGEN,URINE NEGATIVE mg/dL (<2.0)
[2018-10-27 20:59] LABS: URINE AMPHETAMINES SCREEN NEGATIVE; URINE BARBITURATES SCREEN NEGATIVE; URINE BENZODIAZEPINES SCREEN NEGATIVE; URINE COCAINE SCREEN NEGATIVE; URINE MARIJUANA (THC) SCREEN UNCONFIRMED POSITIVE; URINE METHADONE SCREEN NEGATIVE; URINE PHENCYCLIDINE SCREEN NEGATIVE
[2018-10-27] MEDS ORDERED: MAG HYDROX/AL HYDROX/SIMETH SUSP 30 ML UDCUP PO PRN (22:20)
[2018-10-27] MEDS ORDERED: IPRATROPIUM/ALBUTEROL 0.5-2.5 MG/3 ML AMPUL NEB PRN (22:20)
[2018-10-27] MEDS ORDERED: HYDRALAZINE HCL INJ/PF 20 MG/1 ML SDV IV PRN (22:37)
[2018-10-27] MEDS ORDERED: CLONIDINE HCL 0.1 MG TABLET PO ONE (23:00)
[2018-10-27 23:20] LABS: ACETAMINOPHEN < 10 ug/mL (10-30); SALICYLATE < 1.0 mg/dL (2.0-20.0)
[2018-10-27] MEDS: MAGNESIUM SULFATE/D5W 1 GM/100 ML RTUPB IV SCH (23:29)
[2018-10-27] MEDS: LORAZEPAM INJ 2 MG/1 ML VIAL IV PRN (23:57)
[2018-10-28] MEDS: MAGNESIUM SULFATE/D5W 1 GM/100 ML RTUPB IV SCH (00:30)
[2018-10-28] MEDS ORDERED: FUROSEMIDE INJ/PF 40 MG/4 ML SDV IV ONE (00:43)
[2018-10-28] MEDS ORDERED: LORAZEPAM INJ 2 MG/1 ML VIAL IV ONE (00:48)
[2018-10-28] MEDS ORDERED: METHYLPREDNISOLONE INJ 125 MG/2 ML SDV IV ONE (00:50)
[2018-10-28] MEDS: METHYLPREDNISOLONE INJ 125 MG/2 ML SDV IV SCH ×2 (02:17→11:05)
[2018-10-28] MEDS ORDERED: CLONIDINE 0.1 MG/24 HR PATCH.TDWK TD ONE (02:30)
[2018-10-28] MEDS: IPRATROPIUM/ALBUTEROL 0.5-2.5 MG/3 ML AMPUL NEB SCH ×4 (02:40→21:20)
[2018-10-28 02:53] LABS: ARTERIAL BLOOD BASE EXCESS 0.7 mmol/L; ARTERIAL BLOOD FIO2 21%; ARTERIAL BLOOD H2CO3 0.81 mmol/L (1.05-1.35); ARTERIAL BLOOD HCO3 22.1 mmol/L (20-24); ARTERIAL BLOOD O2 SATURATION 97.6 % (94-98); ARTERIAL BLOOD PH 7.53 (7.35-7.45); ARTERIAL BLOOD PO2 87.3 mmHg (80-100); ARTERIAL BLOOD TOTAL CO2 22.9 mmol/L (23-27)
[2018-10-28] MEDS: LORAZEPAM INJ 2 MG/1 ML VIAL IV PRN ×3 (03:39→18:30)
[2018-10-28] MEDS: NORMAL SALINE 1000 ML 1,000 ML IV PRN ×2 (03:42→09:09)
[2018-10-28] MEDS: ACETAMINOPHEN 650 MG SUPP.RECT PR PRN ×2 (03:46→13:45)
--- NOTE | 2018-10-28 05:11 | RADIOLOGY REPORT (SQ) ---
EXAM DESCRIPTION: XR CHEST 1 VIEW COMPLETED DATE/TME: 10/28/2018 00:00 CLINICAL HISTORY: 43 years Male, wheeze COMPARISON: None. NUMBER OF VIEWS/TECHNIQUE: 1/AP FINDINGS: Adequate lung volume, clear parenchyma, normal cardiac silhouette, and intact bony thorax. IMPRESSION: No acute cardiopulmonary findings.
--- NOTE | 2018-10-28 05:32 | PDOC H&P ---
History of Present Illness Admission Date/PCP: 10/27/18 22:24 GODFREY TERRAZAS MD Patient complains of: Altered mental status History of Present Illness: CUCO SETHI is a 43 year old male with a past medical history of polysubstance abuse, alcohol, tobacco dependent, chronic pain, depression suicide attempt by overdose. Patient is unable to provide history and subsequently history is obtained by the medical record of the emergency room provider. Patient was found disheveled, on the ground awake, alert and oriented x0, nonverbal moving all 4 extremities at home with empty bottles of Valium and oxycodone last seen normal by his power of criminal attorney and sister 3 days ago. He is brought to the emergency room and received Narcan without significant response he remains awake and alert moving all 4 extremities and withdrawing from noxious stimuli. He has fever, leukocytosis no obvious source of infection, urine drug screen is positive for THC. He is referred to the hospitalist for admission. Past Medical History Cardiac Medical History: Reports: Hypertension Pulmonary Medical History: Reports: Pneumonia Endocrine Medical History: Reports: Diabetes Mellitus Type 2 GI Medical History: Reports: Gastroesophageal Reflux Disease Musculoskeltal Medical History: Reports: Arthritis Psychiatric Medical History: Reports: Depression Past Surgical History Past Surgical History: Reports: Orthopedic Surgery - spine x9 Social History Information Source: Emergency Med Personnel, [facility] Records Lives with: Alone Smoking Status: Current Every Day Smoker Frequency of Alcohol Use: Heavy Drugs: Cocaine, Marijuana, Other - Methamphetamine Hx Prescription Drug Abuse: Yes - Advance Directive Resuscitation Status: Full Code Family History Family History: Other - Unknown unable to obtain Parental Family History Reviewed: No - Unknown Children Family History Reviewed: No Sibling(s) Family History Reviewed.: No Medication/Allergy Home Medications: Clonidine HCl [Catapres] 0.1 mg PO TID 07/16/14 Gabapentin 600 mg PO QID 07/16/14 Oxycodone HCl/Acetaminophen [Percocet 5-325 mg Tablet] 1 - 2 tab PO ASDIR PRN #15 tablet 07/16/14 Penicillin V Potassium [Penicillin Vk 500 mg Tablet] 500 mg PO TID #21 tablet 07/16/14 Ranitidine HCl [Zantac 150 mg Tablet] 150 mg PO DAILY 07/16/14 Amox Tr/Potassium Clavulanate [Augmentin 875-125 Tablet] 1 tab PO BID 10 Days tablet 09/04/14 Oxycodone HCl 5 mg PO Q6H #15 tablet 09/04/14 Tramadol HCl [Ultram] 50 mg PO Q6 #15 tablet 01/08/15 Hydrocodone/Acetaminophen [[place] 5-325 mg Tablet] 1 tab PO Q6H PRN #10 tablet 06/26/15 Penicillin V Potassium [Penicillin Vk 500 mg Tablet] 500 mg PO BID #14 tablet 06/26/15 Cephalexin Monohydrate [Keflex 500 mg Capsule] 500 mg PO QID #40 capsule 08/12/15 Sulfamethoxazole/Trimethoprim [Bactrim Ds Tablet] 1 each PO BID #20 tablet 08/12/15 Naproxen [Naprosyn 250 mg Tablet] 250 mg PO DAILY PRN #14 tablet 09/25/16 Tramadol HCl [Ultram] 50 mg PO Q8HP PRN #10 tablet 09/25/16 Hydromorphone HCl [Dilaudid 2 Mg Tablet] 2 mg PO Q6H PRN #20 tablet 09/29/16 Naproxen [Naprosyn 250 Nmg Tablet] 1 tab PO BID #14 tablet 02/18/17 Clindamycin HCl 300 mg PO Q6 #40 capsule 07/11/17 Cyclobenzaprine HCl [Flexeril 10 mg Tablet] 10 mg PO TIDP PRN #15 tab 02/17/18 Meloxicam [Mobic] 15 mg PO DAILY #14 tablet 03/11/18 Allergies/Adverse Reactions: zolpidem tartrate [From Ambien] Allergy (Verified 03/10/18 21:32) Review of Systems ROS unobtainable: Due to mental status Physical Exam Vital Signs: Temp Pulse Resp BP Pulse Ox 101.5 F H 18 157/111 H 96 10/28/18 03:13 10/28/18 03:26 10/28/18 03:26 10/28/18 03:26 Intake & Output 10/26/18 10/27/18 10/28/18 11:59 11:59 11:59 Intake Total 1100 Balance 1100 General appearance: PRESENT: disheveled, mild distress, thin, well-developed, well-nourished. ABSENT: cooperative Head exam: PRESENT: atraumatic, normocephalic Eye exam: PRESENT: conjunctiva pink, EOMI, PERRLA. ABSENT: nystagmus, periorbital swelling, scleral icterus Ear exam: PRESENT: normal external ear exam. ABSENT: bleeding, drainage Mouth exam: PRESENT: moist, tongue midline Neck exam: ABSENT: carotid bruit, JVD, lymphadenopathy, thyromegaly Respiratory exam: PRESENT: clear to auscultation nas. ABSENT: rales, rhonchi, wheezes Cardiovascular exam: PRESENT: RRR. ABSENT: diastolic murmur, rubs, systolic murmur Pulses: PRESENT: normal dorsalis pedis pul Vascular exam: PRESENT: normal capillary refill GI/Abdominal exam: PRESENT: normal bowel sounds, soft. ABSENT: distended, guarding, mass, organolmegaly, rebound, tenderness Rectal exam: PRESENT: deferred Extremities exam: PRESENT: full ROM. ABSENT: calf tenderness, clubbing, pedal edema Musculoskeletal exam: PRESENT: full ROM, other - No hypertonicity, or rigidity. ABSENT: dislocation, tenderness Neurological exam: PRESENT: altered, CN II-XII grossly intact, aphasic. ABSENT: oriented to person, oriented to place, oriented to time, oriented to situation Psychiatric exam: PRESENT: agitated, unusual affect Skin exam: PRESENT: dry, intact, warm. ABSENT: cyanosis, rash Results Laboratory Results: 10/27/18 15:45 10/27/18 18:20 10/27/18 10/27/18 10/27/18 15:45 15:45 18:20 WBC 33.4 H* RBC 4.74 Hgb 14.2 Hct 42.2 MCV 89 MCH 30.0 MCHC 33.7 RDW 16.1 H Plt Count 273 Seg Neutrophils % Not Reportable Lymphocytes % Not Reportable Monocytes % Not Reportable Eosinophils % Not Reportable Basophils % Not Reportable Absolute Neutrophils Not Reportable Absolute Lymphocytes Not Reportable Absolute Monocytes Not Reportable Absolute Eosinophils Not Reportable Absolute Basophils Not Reportable Carbonic Acid HCO3/H2CO3 Ratio ABG pH ABG pCO2 ABG pO2 ABG HCO3 ABG O2 Saturation ABG Base Excess FiO2 Sodium Cancelled 133.5 L Potassium Cancelled 4.1 Chloride Cancelled 97 L Carbon Dioxide Cancelled 22 Anion Gap Cancelled 15 BUN Cancelled 13 Creatinine Cancelled 0.67 Est GFR ( Amer) Cancelled > 60 Est GFR (Non-Af Amer) Cancelled > 60 Glucose Cancelled 111 H Lactic Acid Calcium Cancelled 9.8 Total Bilirubin Cancelled 1.2 AST Cancelled 25 ALT Cancelled 23 Alkaline Phosphatase Cancelled 94 Total Protein Cancelled 7.7 Albumin Cancelled 4.8 Urine Color Urine Appearance Urine pH Ur Specific [place] Urine Protein Urine Glucose (UA) Urine Ketones Urine Blood Urine Nitrite Ur Leukocyte Esterase Urine WBC (Auto) Urine RBC (Auto) 10/27/18 10/27/18 10/27/18 18:20 20:24 22:46 WBC RBC Hgb Hct MCV MCH MCHC RDW Plt Count Seg Neutrophils % Lymphocytes % Monocytes % Eosinophils % Basophils % Absolute Neutrophils Absolute Lymphocytes Absolute Monocytes Absolute Eosinophils Absolute Basophils Carbonic Acid HCO3/H2CO3 Ratio ABG pH ABG pCO2 ABG pO2 ABG HCO3 ABG O2 Saturation ABG Base Excess FiO2 Sodium Potassium Chloride Carbon Dioxide Anion Gap BUN Creatinine Est GFR ( Amer) Est GFR (Non-Af Amer) Glucose Lactic Acid 2.3 H 1.9 Calcium Total Bilirubin AST ALT Alkaline Phosphatase Total Protein Albumin Urine Color YELLOW Urine Appearance CLEAR Urine pH 9.0 Ur Specific [place] 1.015 Urine Protein NEGATIVE Urine Glucose (UA) NEGATIVE Urine Ketones 80 H Urine Blood NEGATIVE Urine Nitrite NEGATIVE Ur Leukocyte Esterase NEGATIVE Urine WBC (Auto) 1 Urine RBC (Auto) 6 10/28/18 02:41 WBC RBC Hgb Hct MCV MCH MCHC RDW Plt Count Seg Neutrophils % Lymphocytes % Monocytes % Eosinophils % Basophils % Absolute Neutrophils Absolute Lymphocytes Absolute Monocytes Absolute Eosinophils Absolute Basophils Carbonic Acid 0.81 L HCO3/H2CO3 Ratio 27:1 ABG pH 7.53 H ABG pCO2 27.0 L ABG pO2 87.3 ABG HCO3 22.1 ABG O2 Saturation 97.6 ABG Base Excess 0.7 FiO2 21% Sodium Potassium Chloride Carbon Dioxide Anion Gap BUN Creatinine Est GFR ( Amer) Est GFR (Non-Af Amer) Glucose Lactic Acid Calcium Total Bilirubin AST ALT Alkaline Phosphatase Total Protein Albumin Urine Color Urine Appearance Urine pH Ur Specific [place] Urine Protein Urine Glucose (UA) Urine Ketones Urine Blood Urine Nitrite Ur Leukocyte Esterase Urine WBC (Auto) Urine RBC (Auto) 10/27/18 10/27/18 10/27/18 15:45 18:20 18:20 Creatine Kinase Cancelled 143 Troponin I < 0.012 Impressions: Head CT 10/27/18 17:19 IMPRESSION: NORMAL BRAIN CT WITHOUT CONTRAST. EVIDENCE OF ACUTE STROKE: NO. Chest X-Ray 10/28/18 00:00 IMPRESSION: No acute cardiopulmonary findings. 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 Is this a current diagnosis for this admission?: Yes Plan: Psychomotor agitation, no EKG changes, follow-up repeat urine drug screen, Valium as needed, psychiatric consult (2) Acute encephalopathy Is this a current diagnosis for this admission?: Yes Plan: Secondary to #1, supportive measures (3) Leukocytosis Qualifiers: Leukocytosis type: unspecified Qualified Code(s): D72.829 - Elevated white blood cell count, unspecified Is this a current diagnosis for this admission?: Yes Plan: No obvious infectious source, supportive measures, duggan culture as needed fever - Time Time Spent: 50 to 70 Minutes - Inpatient Certification Medical Necessity: Need Close Monitoring Due to Risk of Patient Decompensation
[2018-10-28] MEDS: HEPARIN SOD (PORCINE) 5,000 UNIT/ML 1 ML SYRINGE SUBCUT SCH ×3 (05:45→22:35)
[2018-10-28 06:38] LABS: ALANINE AMINOTRANSFERASE 32 U/L (21-72); ALBUMIN 4.3 g/dL (3.5-5.0); ALKALINE PHOSPHATASE 99 U/L (38-126); ANION GAP 13 (5-19); ASPARTATE AMINO TRANSFERASE 27 U/L (17-59); BILIRUBIN,DIRECT 0.2 mg/dL (0.0-0.4); BILIRUBIN,TOTAL 0.9 mg/dL (0.2-1.3); BLOOD UREA NITROGEN 13 mg/dL (7-20); CALCIUM 9.5 mg/dL (8.4-10.2); CARBON DIOXIDE 21 mmol/L (22-30); CHLORIDE 97 mmol/L (98-107); CREATINE KINASE 242 U/L (55-170); GLUCOSE 146 mg/dL (75-110); POTASSIUM 3.4 mmol/L (3.6-5.0); SODIUM 131.2 mmol/L (137-145); TOTAL PROTEIN 7.2 g/dL (6.3-8.2)
[2018-10-28 06:52] LABS: HEMATOCRIT 37.4 % (37.9-51.0); HEMOGLOBIN 12.6 g/dL (13.5-17.0); MEAN CORPUSCULAR HEMOGLOBIN 29.7 pg (27.0-33.4); MEAN CORPUSCULAR HGB CONC 33.7 g/dL (32.0-36.0); MEAN CORPUSCULAR VOLUME 88 fl (80-97); PLATELET COUNT 134 10^3/uL (150-450); RED BLOOD COUNT 4.25 10^6/uL (4.35-5.55); RED CELL DISTRIBUTION WIDTH 15.5 % (11.5-14.0)
[2018-10-28 07:21] LABS: ABSOLUTE LYMPHOCYTES# (MANUAL) 0.3 10^3/uL (0.5-4.7); ABSOLUTE NEUTROPHILS# (MANUAL) 30.4 10^3/uL (1.7-8.2); BAND NEUTROPHILS % (MANUAL) 7 % (3-5); BASOPHILS % (MANUAL) 0 % (0-2); EOSINOPHILS % (MANUAL) 0 % (0-6); LYMPHOCYTES % (MANUAL) 1 % (13-45); MONOCYTES % (MANUAL) 3 % (3-13); SEGMENTED NEUTROPHILS % (MAN) 89 % (42-78); TOTAL CELLS COUNTED 100
[2018-10-28 07:23] LABS: ANISOCYTOSIS SLIGHT; PLATELET CLUMPS PRESENT; PLATELET COMMENT DECREASED; TOXIC GRANULATION 1+
[2018-10-28 07:24] LABS: WHITE BLOOD COUNT 31.7 10^3/uL (4.0-10.5)
--- NOTE | 2018-10-28 07:53 | EKG REPORT ---
SEVERITY:- ABNORMAL ECG - SINUS RHYTHM CONSIDER LEFT VENTRICULAR HYPERTROPHY BORDERLINE PROLONGED QT INTERVAL : Confirmed by: Jd King MD 28-Oct-2018 07:52:19
--- NOTE | 2018-10-28 08:04 | PSYCHOLOGICAL NOTE ---
Psych Note - Psych Note Date seen by psych provider: 10/28/18 Time seen by psych provider: 07:10 Psych Note: Reason for Consult: possible Overdose CUCO SETHI is a 43 year old male with a past medical history of polysubstance abuse, alcohol, tobacco dependent, chronic pain, depression suicide attempt by overdose. Patient presented to [facility] after being found unresponsive and covered in urine and feces. EMS reports there was empty pill bottles around him that has 20 missing valium pills and 20 oxycodone. Patient's sister reported he has been admitted to inpatient psych facilities in the past, she suspects that the patient was around individuals that use methamphetamines on a regular basis last night, but she has not seen him in about 3 days. He recently was having some transient thoughts about 3 days ago of suicide, but he typically is not a person that would attempt suicide despite his history in the past. At this time it is unclear is this is medical, intentional or accidental overdose. Patient continues to be unresponsive other than moaning and thrashing around his bed. He is unable to engage in evaluation at this time. Attending evening physician initiated IVC petition.
[2018-10-28] MEDS ORDERED: POTASSI CL 20 MEQ/D5NS 1L 20 MEQ/1,000 ML RTUINJ IV ONE (09:36)
[2018-10-28] MEDS ORDERED: CLONIDINE HCL 0.1 MG TABLET PO SCH (10:00)
[2018-10-28] MEDS ORDERED: DEXTROSE 5%-1/2 NORMAL SALINE 1,000 ML IV ONE (10:00)
--- NOTE | 2018-10-28 11:16 | PDOC PROGRESS REPORT ---
Subjective Progress Note for:: 10/28/18 Subjective:: 43 year old male with a past medical history of polysubstance abuse, alcohol, tobacco dependent, chronic pain, depression suicide attempt by overdose. Patient is unable to provide history and subsequently history is obtained by the medical record of the emergency room provider. Patient was found disheveled, on the ground awake, alert and oriented x0, nonverbal moving all 4 extremities at home with empty bottles of Valium and oxycodone last seen normal by his power of director oracle and sister 3 days ago. He is brought to the emergency room and received Narcan without significant response he remains awake and alert moving all 4 extremities and withdrawing from noxious stimuli. He has fever, leukocytosis no obvious source of infection, urine drug screen is positive for THC. He is referred to the hospitalist for admission. 10/28/[id number]-[id number]-old male admitted with altered mental status Narcan was given on the way to the hospital still in altered mental status his WBC count is 33,000+ and he has a fever of 101.5 this morning. Chest x-ray was negative for pneumonia. There is no obvious source of infection at this moment. Plan is to do the blood cultures urine culture and lumbar puncture. And started on IV Rocephin and IV Levaquin. Lactic acid initially 1 2.3 came down to 1.9 with IV fluids. Most likely he meets the criteria for SIRS. Reason For Visit: AMS, STIMULANT OD, HX SUICIDE ATTEMPT Physical Exam Vital Signs: Temp Pulse Resp BP Pulse Ox 97.1 F 27 H 150/98 H 100 10/28/18 08:35 10/28/18 10:01 10/28/18 09:39 10/28/18 10:01 Intake & Output 10/27/18 10/28/18 10/29/18 06:59 06:59 06:59 Intake Total 2200 1000 Balance 2200 1000 Weight 71 kg General appearance: PRESENT: disheveled, thin, other - Patient is agitated and unresponsive. Head exam: PRESENT: atraumatic Eye exam: PRESENT: PERRLA Mouth exam: PRESENT: moist, tongue midline Neck exam: ABSENT: carotid bruit, JVD, lymphadenopathy, thyromegaly Respiratory exam: PRESENT: decreased breath sounds Cardiovascular exam: PRESENT: tachycardia GI/Abdominal exam: PRESENT: normal bowel sounds, soft. ABSENT: distended, guarding, mass, organolmegaly, rebound, tenderness Extremities exam: PRESENT: full ROM. ABSENT: calf tenderness, clubbing, pedal edema Neurological exam: PRESENT: altered Psychiatric exam: PRESENT: agitated, anxious Results Laboratory Results: 10/28/18 06:40 10/28/18 05:55 10/27/18 10/27/18 10/27/18 15:45 15:45 18:20 WBC 33.4 H* RBC 4.74 Hgb 14.2 Hct 42.2 MCV 89 MCH 30.0 MCHC 33.7 RDW 16.1 H Plt Count 273 Seg Neutrophils % Not Reportable Lymphocytes % Not Reportable Monocytes % Not Reportable Eosinophils % Not Reportable Basophils % Not Reportable Absolute Neutrophils Not Reportable Absolute Lymphocytes Not Reportable Absolute Monocytes Not Reportable Absolute Eosinophils Not Reportable Absolute Basophils Not Reportable Carbonic Acid HCO3/H2CO3 Ratio ABG pH ABG pCO2 ABG pO2 ABG HCO3 ABG O2 Saturation ABG Base Excess FiO2 Sodium Cancelled 133.5 L Potassium Cancelled 4.1 Chloride Cancelled 97 L Carbon Dioxide Cancelled 22 Anion Gap Cancelled 15 BUN Cancelled 13 Creatinine Cancelled 0.67 Est GFR ( Amer) Cancelled > 60 Est GFR (Non-Af Amer) Cancelled > 60 Glucose Cancelled 111 H Lactic Acid Calcium Cancelled 9.8 Total Bilirubin Cancelled 1.2 AST Cancelled 25 ALT Cancelled 23 Alkaline Phosphatase Cancelled 94 Total Protein Cancelled 7.7 Albumin Cancelled 4.8 Urine Color Urine Appearance Urine pH Ur Specific [place] Urine Protein Urine Glucose (UA) Urine Ketones Urine Blood Urine Nitrite Ur Leukocyte Esterase Urine WBC (Auto) Urine RBC (Auto) 10/27/18 10/27/18 10/27/18 18:20 20:24 22:46 WBC RBC Hgb Hct MCV MCH MCHC RDW Plt Count Seg Neutrophils % Lymphocytes % Monocytes % Eosinophils % Basophils % Absolute Neutrophils Absolute Lymphocytes Absolute Monocytes Absolute Eosinophils Absolute Basophils Carbonic Acid HCO3/H2CO3 Ratio ABG pH ABG pCO2 ABG pO2 ABG HCO3 ABG O2 Saturation ABG Base Excess FiO2 Sodium Potassium Chloride Carbon Dioxide Anion Gap BUN Creatinine Est GFR ( Amer) Est GFR (Non-Af Amer) Glucose Lactic Acid 2.3 H 1.9 Calcium Total Bilirubin AST ALT Alkaline Phosphatase Total Protein Albumin Urine Color YELLOW Urine Appearance CLEAR Urine pH 9.0 Ur Specific [place] 1.015 Urine Protein NEGATIVE Urine Glucose (UA) NEGATIVE Urine Ketones 80 H Urine Blood NEGATIVE Urine Nitrite NEGATIVE Ur Leukocyte Esterase NEGATIVE Urine WBC (Auto) 1 Urine RBC (Auto) 6 10/28/18 10/28/18 10/28/18 02:41 05:55 05:55 WBC Cancelled RBC Cancelled Hgb Cancelled Hct Cancelled MCV Cancelled MCH Cancelled MCHC Cancelled RDW Cancelled Plt Count Cancelled Seg Neutrophils % Cancelled Lymphocytes % Cancelled Monocytes % Cancelled Eosinophils % Cancelled Basophils % Cancelled Absolute Neutrophils Cancelled Absolute Lymphocytes Cancelled Absolute Monocytes Cancelled Absolute Eosinophils Cancelled Absolute Basophils Cancelled Carbonic Acid 0.81 L HCO3/H2CO3 Ratio 27:1 ABG pH 7.53 H ABG pCO2 27.0 L ABG pO2 87.3 ABG HCO3 22.1 ABG O2 Saturation 97.6 ABG Base Excess 0.7 FiO2 21% Sodium 131.2 L Potassium 3.4 L Chloride 97 L Carbon Dioxide 21 L Anion Gap 13 BUN 13 Creatinine 0.63 Est GFR ( Amer) > 60 Est GFR (Non-Af Amer) > 60 Glucose 146 H Lactic Acid Calcium 9.5 Total Bilirubin 0.9 AST 27 ALT 32 Alkaline Phosphatase 99 Total Protein 7.2 Albumin 4.3 Urine Color Urine Appearance Urine pH Ur Specific [place] Urine Protein Urine Glucose (UA) Urine Ketones Urine Blood Urine Nitrite Ur Leukocyte Esterase Urine WBC (Auto) Urine RBC (Auto) 10/28/18 06:40 WBC 31.7 H* RBC 4.25 L Hgb 12.6 L Hct 37.4 L MCV 88 MCH 29.7 MCHC 33.7 RDW 15.5 H Plt Count 134 L Seg Neutrophils % Not Reportable Lymphocytes % Not Reportable Monocytes % Not Reportable Eosinophils % Not Reportable Basophils % Not Reportable Absolute Neutrophils Not Reportable Absolute Lymphocytes Not Reportable Absolute Monocytes Not Reportable Absolute Eosinophils Not Reportable Absolute Basophils Not Reportable Carbonic Acid HCO3/H2CO3 Ratio ABG pH ABG pCO2 ABG pO2 ABG HCO3 ABG O2 Saturation ABG Base Excess FiO2 Sodium Potassium Chloride Carbon Dioxide Anion Gap BUN Creatinine Est GFR ( Amer) Est GFR (Non-Af Amer) Glucose Lactic Acid Calcium Total Bilirubin AST ALT Alkaline Phosphatase Total Protein Albumin Urine Color Urine Appearance Urine pH Ur Specific [place] Urine Protein Urine Glucose (UA) Urine Ketones Urine Blood Urine Nitrite Ur Leukocyte Esterase Urine WBC (Auto) Urine RBC (Auto) 10/27/18 10/27/18 10/27/18 15:45 18:20 18:20 Creatine Kinase Cancelled 143 Troponin I < 0.012 10/28/18 05:55 Creatine Kinase 242 H Troponin I Impressions: Head CT 10/27/18 17:19 IMPRESSION: NORMAL BRAIN CT WITHOUT CONTRAST. EVIDENCE OF ACUTE STROKE: NO. Chest X-Ray 10/28/18 00:00 IMPRESSION: No acute cardiopulmonary findings. Assessment & Plan - Diagnosis (1) Acute encephalopathy Is this a current diagnosis for this admission?: Yes Plan: 10/29/2001 [id number] male admitted with altered mental status/acute and coagulopathy. Most likely secondary to sepsis. CT head was negative. Chest x- ray was negative. Lactic acid elevated at the time of admission with 2.3. He has a fever of 101.5. WBC count of 33,000. He meets the criteria for Sirs. And is to do LP today blood cultures urine cultures are requested started on IV Rocephin 2 g daily and levofloxacin 750 mg IV daily. Fall seizure precautions are requested restraints were ordered. Ativan 1 mg IV every 2 as needed order for agitation. And is on DVT and GI prophylaxis. Patient is going to ICU. (2) Leukocytosis Qualifiers: Leukocytosis type: unspecified Qualified Code(s): D72.829 - Elevated white blood cell count, unspecified Is this a current diagnosis for this admission?: Yes Plan: 10/28/2018-patient came in with elevated WBC count chest x-ray was negative no source of infection was found so far LP was requested blood cultures are requested a new cultures requested started on IV Rocephin and Zithromax. Elevated leukocytosis most likely secondary to sepsis. (3) Elevated lactic acid level Is this a current diagnosis for this admission?: Yes Plan: 10/28/2018-patient came in with elevated lactic acid level of 2.3 with IV fluids it was improved to 1.9 elevated lactic acid level most likely secondary to sepsis. (4) Tobacco abuse Is this a current diagnosis for this admission?: Yes Plan: 10/28/2018 patient has history of tobacco abuse plan is to put him on nicotine patch 21 mcg daily. (5) Hyponatremia Is this a current diagnosis for this admission?: Yes Plan: 10/28/2018 patient serum sodium levels at the time of admission is 133.500 today it is 131.2 hyponatremia most likely secondary to poor oral intake. Patient was started on D5 half-normal saline at 75 cc/h. He is to recheck his labs tomorrow. (6) Hypokalemia Is this a current diagnosis for this admission?: Yes Plan: 10/28/2018-patient potassium level is 3.4 to start on potassium 40 mg IV daily. Hypokalemia most likely secondary to poor oral intake. - Time Time Spent with patient: 15-24 minutes Medications reviewed and adjusted accordingly: Yes Anticipated discharge: Home
[2018-10-28 11:18] LABS: PATH REVIEW PATHOLOGIST REVIEWED
[2018-10-28 11:24] LABS: PROTHROMBIN TIME 16.8 SEC (11.4-15.4)
[2018-10-28] MEDS ORDERED: LEVOFLOXACIN 750 MG/D5W RTU 750 MG/150 ML RTUPB IV SCH (12:00)
[2018-10-28] MEDS ORDERED: CEFTRIAXONE 2 GM/D5W RTU 2 GM/50 ML RTUPB IV SCH (12:00)
[2018-10-28] MEDS: NICOTINE 21 MG/24 HR PATCH.TD24 TD SCH (13:37)
--- NOTE | 2018-10-28 13:47 | RADIOLOGY REPORT (SQ) ---
EXAM DESCRIPTION: LUMBAR PUNCTURE; FLUORO/NEEDLE PLACEMENT/SPINE COMPLETED DATE/TIME: 10/28/2018 1:19 pm; 10/28/2018 1:20 pm REASON FOR STUDY: altered mental status; AMS A40.9 STREPTOCOCCAL SEPSIS, UNSPECIFIED A40.8 OTHER S TREPTOCOCCAL SEPSIS D69.6 THROMBOCYTOPENIA, UNSPECIFIED COMPARISON: None. FLUOROSCOPY TIME: 18 seconds 1 images saved to PACS. TECHNIQUE: Fluoroscopic guided lumbar puncture. LIMITATIONS: None. PROCEDURE: After written consent and assessment were obtained, the patient was brought into the fluo roscopy room and placed prone on the table. The patient's lower back was prepped in a sterile fashio n and an entry site was selected under live fluoroscopic guidance. The entry site was anesthetized wi th 1% lidocaine. A 22 gauge needle was advanced through the skin and into the thecal sac at the level of L3-L4. After approximately 9 ml was drained, the needle was removed and a sterile bandage was eriberto mahin of the site. Specimens were sent to the lab for testing. A fluoroscopic spot image was saved to PACS confirming level access. FINDINGS: Cloudy CSF. IMPRESSION: Lumbar puncture under fluoroscopy. No immediate complication. COMMENT: Patient medication list reviewed: Yes- Quality ID# [id number]:Eligible professional attests to doc umenting in the medical record they obtained, updated, or reviewed the patient's current medications. . Quality ID 145: Final reports for procedures using fluoroscopy that document radiation exposure [employer], or exposure time and number of fluorographic images (if radiation exposure indices are not avail able) TECHNICAL DOCUMENTATION: JOB ID: [id number] [employer]- All Rights Reserved Reading location - IP/workstation name: [email or web address]
[2018-10-28 14:21] LABS: APPEARANCE ALL TUBES CLOUDY; COLOR ALL TUBES STRAW; CSF TUBE NUMBER 3; RED BLOOD CELL,CSF 153 /uL (0-10)
[2018-10-28 14:22] LABS: WHITE BLOOD CELL,CSF 2355 /uL (0-5)
[2018-10-28 14:23] LABS: GLUCOSE,CSF < 20 mg/dL (40-70); PROTEIN,CSF 520 mg/dL (12-60)
[2018-10-28 14:24] LABS: MONONUCLEAR CELLS CSF 12 %; POLYMORPHONUCLEAR CELLS CSF 88 %
--- NOTE | 2018-10-28 15:08 | ER Document Report ---
Doctor's Note Notes: 10/28/18 [id number] Patient update and follow-up: Patient's case was reviewed today, as he presented last night, encephalopathic, afebrile upon presentation, seen by hospitalist today, did spike a fever overnight, and had an LP performed as a result to evaluate for possible cause of infection, his lumbar puncture was positive for what seems like bacterial meningitis, with gram-positive cocci, vancomycin was ordered by the hospitalist, when I was reviewing this chart, it appeared that it was not starting until tomorrow, I made the nurse aware of this, and the hospitalist Dr. Gill, and changed to start the vancomycin today. He says that he spoke with ID regarding this patient as well to increase dosing of the Rocephin and add dexamethasone. Erik Bentley D.O.
--- NOTE | 2018-10-28 15:23 | Progress Note ---
Provider Note Provider Note: ID Consult Note Asked to review patient's chart by Dr Gill. Pt not seen or examined. Mr. Lin is a 43 year old man with pmh including polysubstance abuse, chronic pain, depression wtih prior suicide attempt by overdose, adn tobacco use who was seen in the ED on 10/27/18 for AMS - was found at home surrounded by empty pill bottles, mainly Valium and oxycodone, per ED provider's report, brought to the ED by EMS after not having been seen for 3 days. Although he was initially afebrile, he shortly thereafter developed a fever up to 101.5 F. Pt was appreciated in the ED to have disheveled appearance, dry mucous membranes, abrasions to the face and upper extremities, tachycardia, and inability follow commands. His initial labs included marked luekocytosis, mildly elevated lactic acid, hypochloremia. CXR was negative for acute infiltrate. With fever and altered mental status, an LP was performed to evaluate further, which revealed neutrophilic CSF pleocytosis with WBC 2355 (88% PMNs), hypoglycorrhachia CSF glucose <20, elevated total protein 520. Blood cultures and CSF cultures are pending. The gram stain of the CSF has 4+ GPCs. Impression/Recommendations - The patient appears to have bacterial meningitis based on his CSF formula and Gram stain with GPCs. The most likely organism is Streptococcus pneumoniae but identification is pending. - Continue empiric treatment for bacterial meningitis with IV vancomycin, dosed with assistance of pharmacy for this indication, and Rocephin 2 g q12h as well as adjunctive dexamethasone 10 mg q6h x 4 days (assuming indeed it is Strep pneumo, otherwise could potentially stop steroids before then). - If this is pneumococcal meningitis, once susceptibilites are back, vancomycin can be discontinued if ceftriaxone YUDELKA is <2. Brett Valdes MD [facility] Infectious Diseases pager [phone]
[2018-10-28] MEDS ORDERED: VANCOMYCIN HCL INJ 500 MG VIAL IV ONE (15:30)
[2018-10-28] MEDS: VANCOMYCIN HCL INJ 1000 MG VIAL IV SCH (15:40)
[2018-10-28] MEDS ORDERED: ALBUTEROL SULFATE HFA (90 MCG/PUFF) 200 PUFF/8.5 GM MDI IH PRN (17:45)
[2018-10-28] MEDS ORDERED: METOPROLOL TARTRATE PF/INJ 5 MG/5 ML SDV IV ONE (18:22)
[2018-10-28] MEDS: DEXAMETHASONE SOD PHOS INJ 10 MG/1 ML VIAL IV SCH (18:30)
--- NOTE | 2018-10-28 20:56 | PDOC TRANSFER SUMMARY ---
General Admission Date/PCP: 10/28/18 11:10 GODFREY TERRAZAS MD Admission Date: 10/27/18 Transfer Date: 10/28/18 Accepting Facility: [facility] Accepting Physician: Dr. Macdonald Resuscitation Status: Full Code - Transfer Diagnosis (1) Bacterial meningitis Is this a current diagnosis for this admission?: Yes Diagnosis Summary: Following persistence of altered mental status and the development of fever he receives IV Rocephin and IV vancomycin with IV Decadron. LP obtained Gram stain revealing 4+ gram-positive cocci. CSF analysis consistent with bacterial meningitis, patient has developed tachypnea without improvement prompting consultation by infectious disease Dr. Valdes recommending current management with transfer to tertiary care for intracranial pressure monitoring and neurologic subspecialty support. Follow-up CSF culture and sensitivity, no additional measures recommended at this time. [facility] is contacted for transfer and is graciously accepted by neurology Dr.Hare Pimentel and ICU hospitalist Dr. Macdonald. Patient remains in critical condition however protecting his airway and vital signs suggesting stability for transport pending bed availability. - Transfer Medications Home Medications: Albuterol Sulfate [Proair Hfa Inhalation Aerosol 8.5 gm Mdi] 2 puff IH Q4HP PRN 10/28/18 Diazepam [Valium 5 mg Tablet] 5 mg PO DAILY 10/28/18 Gabapentin [Neurontin] 1,200 mg PO Q8 10/28/18 Lisinopril 20 mg PO DAILY 10/28/18 Oxycodone HCl [Oxy-Ir 5 mg Tablet] 10 mg PO Q8HP PRN 10/28/18 Ranitidine HCl [Zantac 150 mg Tablet] 150 mg PO BID 10/28/18 Transfer Medications: Current Medications Acetaminophen (Tylenol 325 Mg Tablet) 325 mg PO Q4HP PRN PRN Reason: FOR PAIN OR TEMP Stop: 11/26/18 22:19 Acetaminophen (Tylenol 650 Mg Supp) 650 mg ND Q4HP PRN PRN Reason: FOR PAIN OR TEMP Stop: 11/27/18 03:34 Last Admin: 10/28/18 13:45 Dose: 650 mg Documented by: Al Hydrox/Mg Hydrox/Simethicone (Maalox Plus Susp 30 Udcup) 15 ml PO Q6HP PRN PRN Reason: HEARTBURN Stop: 11/26/18 22:19 Albuterol (Proair Hfa Inhalation Aerosol 8.5 Gm Mdi) 2 puff IH Q4HP PRN PRN Reason: SHORTNESS OF BREATH Stop: 11/27/18 17:44 Albuterol/Ipratropium (Duoneb 3 Ml Ampul) 3 ml NEB [id number] PRN PRN Reason: SHORTNESS OF BREATH Stop: 11/26/18 22:19 Last Admin: 10/28/18 00:37 Dose: 3 ml Documented by: Albuterol/Ipratropium (Duoneb 3 Ml Ampul) 3 ml NEB RTQ6 BRENNAN Stop: 11/27/18 01:59 Last Admin: 10/28/18 14:47 Dose: 3 ml Documented by: Clonidine HCl (Catapres-Tts 1 (0.1 Mg/24 Hr) Transderm Patch) 1 each TD Th@1000 BRENNAN Stop: 12/03/18 09:59 Dexamethasone Sodium Phosphate (Decadron Inj 10 Mg/1 Ml Vial) 10 mg IV Q6 BRENNAN Stop: 11/27/18 17:59 Last Admin: 10/28/18 18:30 Dose: 10 mg Documented by: Heparin Sodium (Porcine) (Heparin Inj 5,000 Units/Ml 1 Ml Syringe) 5,000 unit SUBCUT Q8 BRENNAN Stop: 11/27/18 05:59 Last Admin: 10/28/18 14:19 Dose: Not Given Documented by: Hydralazine HCl (Apresoline Inj/Pf 20 Mg/1 Ml Sdv) 10 mg IV Q6HP PRN PRN Reason: Sbp>160 Stop: 11/26/18 22:36 Dextrose/Sodium Chloride (D5-1/2ns 1000 Ml Iv Soln) 1,000 mls @ 75 mls/hr IV BOLUS ONE Stop: 10/28/18 23:19 Last Admin: 10/28/18 10:58 Dose: 75 mls/hr Documented by: Ceftriaxone Sodium/Dextrose (Rocephin Rtu 2 Gm/D5w 50 Ml Premix Bag) 2 gm in 50 mls @ 100 mls/hr IV Q12 [facility] Stop: 11/04/18 21:59 Influenza Virus Vaccine Quadrival (Fluarix Adlt Quad Vac 0.5 Ml Syr) 0.5 ml IM .DISCHARGE PRN PRN Reason: THIS MED IS NOT "PRN" Stop: 11/27/18 18:37 Lorazepam (Ativan Inj 2 Mg/1 Ml Vial) 2 mg IV Q2HP PRN PRN Reason: ANXIETY/AGITATION Stop: 11/03/18 23:35 Last Admin: 10/28/18 18:30 Dose: 2 mg Documented by: Metoprolol Tartrate (Lopressor Inj/Pf 5 Mg/5 Ml Sdv) 5 mg IV Q6HP PRN PRN Reason: HR>120 Stop: 11/28/18 00:00 Nicotine (Nicoderm 21 Mg/24 Hr Transderm Patch) 1 each TD DAILY BRENNAN Stop: 11/27/18 11:59 Last Admin: 10/28/18 13:37 Dose: Not Given Documented by: Vancomycin HCl (Vancocin Inj 1000 Mg Vial) 1,000 mg IV DAILY BRENNAN Stop: 11/04/18 14:54 Last Admin: 10/28/18 15:40 Dose: 1,000 mg Documented by: - Allergies Allergies/Adverse Reactions: zolpidem tartrate [From Ambien] Allergy (Verified 03/10/18 21:32) Hospital Course Hospital Course: 43-year-old male with a past medical history of polysubstance abuse, alcohol, opiate dependent chronic pain, benzodiazepine dependent anxiety, depression and previous suicide attempts by overdose. Patient's history was obtained by the medical record as he presents awake with apparent toxic encephalopathy. Patient was found disheveled on the ground awake and alert but disoriented, nonverbal moving all 4 extremities with empty bottles of Valium and oxycodone. He was last seen normal by his power of compliance attorney and sister 3 days prior. He was brought to the emergency room receiving Narcan without significant response. Protecting his airway withdrawing from noxious stimuli. He is found with leukocytosis without obvious source of infection, urine drug screen positive for THC, suspecting synthetic intoxicant. He is referred to the hospitalist for admission. After several hours the patient developed fever prompting duggan culture, IV Rocephin, vancomycin, Decadron and lumbar puncture suggesting bacterial meningitis. Infectious disease consult was obtained recommending transfer to tertiary care with neurology subspecialist support and monitoring of interval cerebral pressure. Physical Exam Vital Signs: Temp Pulse Resp BP Pulse Ox 98.9 F 143 H 39 H 166/93 H 99 10/28/18 19:03 10/28/18 19:03 10/28/18 19:03 10/28/18 19:03 10/28/18 19:03 Intake & Output 10/27/18 10/28/18 10/29/18 11:59 11:59 11:59 Intake Total 3200 1200 Output Total 500 Balance 3200 700 Weight 71 kg 72.6 kg General appearance: PRESENT: disheveled, severe distress, thin. ABSENT: cooperative Head exam: PRESENT: atraumatic, normocephalic Eye exam: PRESENT: PERRLA Ear exam: PRESENT: normal external ear exam Mouth exam: PRESENT: moist, tongue midline Neck exam: ABSENT: carotid bruit, JVD, lymphadenopathy, thyromegaly Respiratory exam: PRESENT: clear to auscultation nas, tachypnea. ABSENT: crackles, prolonged expiratory phas, rales, rhonchi, wheezes Cardiovascular exam: PRESENT: RRR. ABSENT: diastolic murmur, rubs, systolic murmur Pulses: PRESENT: normal dorsalis pedis pul Vascular exam: PRESENT: normal capillary refill GI/Abdominal exam: PRESENT: normal bowel sounds, soft. ABSENT: distended, guarding, mass, organolmegaly, rebound, tenderness Rectal exam: PRESENT: deferred Extremities exam: PRESENT: full ROM. ABSENT: calf tenderness, clubbing, pedal edema Neurological exam: PRESENT: altered, CN II-XII grossly intact, aphasic. ABSENT: oriented to person, oriented to place, abnormal gait, ataxia Psychiatric exam: PRESENT: agitated Skin exam: PRESENT: dry, intact, warm. ABSENT: cyanosis, rash Results Laboratory Results: 10/28/18 06:40 10/28/18 05:55 10/27/18 10/27/18 10/28/18 20:24 22:46 02:41 WBC RBC Hgb Hct MCV MCH MCHC RDW Plt Count Seg Neutrophils % Lymphocytes % Monocytes % Eosinophils % Basophils % Absolute Neutrophils Absolute Lymphocytes Absolute Monocytes Absolute Eosinophils Absolute Basophils Carbonic Acid 0.81 L HCO3/H2CO3 Ratio 27:1 ABG pH 7.53 H ABG pCO2 27.0 L ABG pO2 87.3 ABG HCO3 22.1 ABG O2 Saturation 97.6 ABG Base Excess 0.7 FiO2 21% Sodium Potassium Chloride Carbon Dioxide Anion Gap BUN Creatinine Est GFR ( Amer) Est GFR (Non-Af Amer) Glucose Lactic Acid 1.9 Calcium Total Bilirubin AST ALT Alkaline Phosphatase Total Protein Albumin Urine Color YELLOW Urine Appearance CLEAR Urine pH 9.0 Ur Specific [place] 1.015 Urine Protein NEGATIVE Urine Glucose (UA) NEGATIVE Urine Ketones 80 H Urine Blood NEGATIVE Urine Nitrite NEGATIVE Ur Leukocyte Esterase NEGATIVE Urine WBC (Auto) 1 Urine RBC (Auto) 6 Fluid Tube Number CSF Volume CSF Appearance CSF Color CSF WBC CSF RBC CSF Polymorphonuclear CSF Glucose CSF Total Protein 10/28/18 10/28/18 10/28/18 05:55 05:55 06:40 WBC Cancelled 31.7 H* RBC Cancelled 4.25 L Hgb Cancelled 12.6 L Hct Cancelled 37.4 L MCV Cancelled 88 MCH Cancelled 29.7 MCHC Cancelled 33.7 RDW Cancelled 15.5 H Plt Count Cancelled 134 L Seg Neutrophils % Cancelled Not Reportable Lymphocytes % Cancelled Not Reportable Monocytes % Cancelled Not Reportable Eosinophils % Cancelled Not Reportable Basophils % Cancelled Not Reportable Absolute Neutrophils Cancelled Not Reportable Absolute Lymphocytes Cancelled Not Reportable Absolute Monocytes Cancelled Not Reportable Absolute Eosinophils Cancelled Not Reportable Absolute Basophils Cancelled Not Reportable Carbonic Acid HCO3/H2CO3 Ratio ABG pH ABG pCO2 ABG pO2 ABG HCO3 ABG O2 Saturation ABG Base Excess FiO2 Sodium 131.2 L Potassium 3.4 L Chloride 97 L Carbon Dioxide 21 L Anion Gap 13 BUN 13 Creatinine 0.63 Est GFR ( Amer) > 60 Est GFR (Non-Af Amer) > 60 Glucose 146 H Lactic Acid Calcium 9.5 Total Bilirubin 0.9 AST 27 ALT 32 Alkaline Phosphatase 99 Total Protein 7.2 Albumin 4.3 Urine Color Urine Appearance Urine pH Ur Specific [place] Urine Protein Urine Glucose (UA) Urine Ketones Urine Blood Urine Nitrite Ur Leukocyte Esterase Urine WBC (Auto) Urine RBC (Auto) Fluid Tube Number CSF Volume CSF Appearance CSF Color CSF WBC CSF RBC CSF Polymorphonuclear CSF Glucose CSF Total Protein 10/28/18 10/28/18 12:58 12:58 WBC RBC Hgb Hct MCV MCH MCHC RDW Plt Count Seg Neutrophils % Lymphocytes % Monocytes % Eosinophils % Basophils % Absolute Neutrophils Absolute Lymphocytes Absolute Monocytes Absolute Eosinophils Absolute Basophils Carbonic Acid HCO3/H2CO3 Ratio ABG pH ABG pCO2 ABG pO2 ABG HCO3 ABG O2 Saturation ABG Base Excess FiO2 Sodium Potassium Chloride Carbon Dioxide Anion Gap BUN Creatinine Est GFR ( Amer) Est GFR (Non-Af Amer) Glucose Lactic Acid Calcium Total Bilirubin AST ALT Alkaline Phosphatase Total Protein Albumin Urine Color Urine Appearance Urine pH Ur Specific [place] Urine Protein Urine Glucose (UA) Urine Ketones Urine Blood Urine Nitrite Ur Leukocyte Esterase Urine WBC (Auto) Urine RBC (Auto) Fluid Tube Number 3 CSF Volume 9.0 CSF Appearance CLOUDY CSF Color STRAW CSF WBC 2355 H CSF RBC 153 CSF Polymorphonuclear 88 CSF Glucose < 20 L CSF Total Protein 520 H 10/27/18 10/27/18 10/27/18 15:45 18:20 18:20 Creatine Kinase Cancelled 143 Troponin I < 0.012 10/28/18 05:55 Creatine Kinase 242 H Troponin I Impressions: Head CT 10/27/18 17:19 IMPRESSION: NORMAL BRAIN CT WITHOUT CONTRAST. EVIDENCE OF ACUTE STROKE: NO. Chest X-Ray 10/28/18 00:00 IMPRESSION: No acute cardiopulmonary findings. Guidance Fluoroscopy 10/28/18 00:00 IMPRESSION: Lumbar puncture under fluoroscopy. No immediate complication. Lumbar Puncture 10/28/18 00:00 IMPRESSION: Lumbar puncture under fluoroscopy. No immediate complication. Plan Discharge Plan: Transfer to tertiary care at [facility] where he is graciously accepted by Dr. Macdonald ICU hospitalist with neurology support. Time Spent: Greater than 30 Minutes
[2018-10-28] MEDS: CEFTRIAXONE 2 GM/D5W RTU 2 GM/50 ML RTUPB IV SCH (22:34)
[2018-10-29] MEDS ORDERED: METOPROLOL TARTRATE PF/INJ 5 MG/5 ML SDV IV PRN
[2018-10-29] MEDS: DEXAMETHASONE SOD PHOS INJ 10 MG/1 ML VIAL IV SCH ×4 (01:06→17:27)
[2018-10-29] MEDS: IPRATROPIUM/ALBUTEROL 0.5-2.5 MG/3 ML AMPUL NEB SCH ×4 (02:30→20:48)
[2018-10-29 04:33] LABS: HEMOGLOBIN 11.8 g/dL (13.5-17.0); MEAN CORPUSCULAR HEMOGLOBIN 29.4 pg (27.0-33.4); MEAN CORPUSCULAR HGB CONC 33.8 g/dL (32.0-36.0); MEAN CORPUSCULAR VOLUME 87 fl (80-97); PLATELET COUNT 147 10^3/uL (150-450); RED BLOOD COUNT 4.03 10^6/uL (4.35-5.55); RED CELL DISTRIBUTION WIDTH 15.9 % (11.5-14.0); WHITE BLOOD COUNT 22.7 10^3/uL (4.0-10.5)
[2018-10-29 04:53] LABS: ALANINE AMINOTRANSFERASE 14 U/L (21-72); ALBUMIN 3.4 g/dL (3.5-5.0); ALKALINE PHOSPHATASE 85 U/L (38-126); ANION GAP 12 (5-19); ASPARTATE AMINO TRANSFERASE 16 U/L (17-59); BILIRUBIN,DIRECT 0.3 mg/dL (0.0-0.4); BILIRUBIN,TOTAL 0.5 mg/dL (0.2-1.3); BLOOD UREA NITROGEN 16 mg/dL (7-20); CALCIUM 9.3 mg/dL (8.4-10.2); CARBON DIOXIDE 19 mmol/L (22-30); CHLORIDE 98 mmol/L (98-107); GLUCOSE 138 mg/dL (75-110); POTASSIUM 4.1 mmol/L (3.6-5.0); SODIUM 129.3 mmol/L (137-145); TOTAL PROTEIN 6.2 g/dL (6.3-8.2)
[2018-10-29 05:05] LABS: ABSOLUTE LYMPHOCYTES# (MANUAL) 0.2 10^3/uL (0.5-4.7); ABSOLUTE MONOCYTES # (MANUAL) 0.5 10^3/uL (0.1-1.4); ANISOCYTOSIS 1+; BASOPHILS % (MANUAL) 0 % (0-2); EOSINOPHILS % (MANUAL) 0 % (0-6); LYMPHOCYTES % (MANUAL) 1 % (13-45); MONOCYTES % (MANUAL) 2 % (3-13); PLATELET COMMENT ADEQUATE; POLYCHROMASIA 1+; SEGMENTED NEUTROPHILS % (MAN) 97 % (42-78); TOTAL CELLS COUNTED 100
[2018-10-29] MEDS: HEPARIN SOD (PORCINE) 5,000 UNIT/ML 1 ML SYRINGE SUBCUT SCH ×3 (06:21→22:34)
[2018-10-29] MEDS ORDERED: VANCOMYCIN HCL INJ 1000 MG VIAL IV SCH (10:00)
--- NOTE | 2018-10-29 10:28 | PDOC PROGRESS REPORT ---
Subjective Progress Note for:: 10/29/18 Subjective:: This is 43 years old male patient brought by EMS for altered mental status. Patient has underlying past medical history of depression, suicide attempt, tobacco dependence, alcohol dependence and polysubstance abuse. At ER patient found to have T-max of 101.5. And has marked leukocytosis of 31,000 and mildly elevated lactic acid. With impression of meningitis LEEP was done and the gross appearance is cloudy and CSF profile shows WBC of 2355, glucose less than 20 and total protein is 520. To both of his blood culture grew gram- positive cocci in chains and the CSF culture is positive for gram-positive cocci in pair. Patient has been on vancomycin, ceftriaxone and Decadron. The input of Dr. Brett Valdes is appreciated. Morning I seen patient resting in bed his vital signs are within normal limits his saturation is okay. Patient responds appropriately to noxious stimuli. Reason For Visit: ALTERED MENTAL STATUS Physical Exam Vital Signs: Temp Pulse Resp BP Pulse Ox 98.5 F 103 H 20 127/86 H 100 10/29/18 07:56 10/29/18 09:25 10/29/18 09:25 10/29/18 07:56 10/29/18 09:25 Intake & Output 10/28/18 10/29/18 10/30/18 06:59 06:59 06:59 Intake Total 2200 2200 Output Total 1375 45 Balance 2200 825 -45 Weight 71 kg General appearance: PRESENT: no acute distress Head exam: PRESENT: atraumatic Neck exam: PRESENT: meningismus Respiratory exam: PRESENT: clear to auscultation nas. ABSENT: rales, rhonchi, wheezes Cardiovascular exam: PRESENT: RRR. ABSENT: diastolic murmur, rubs, systolic murmur GI/Abdominal exam: PRESENT: normal bowel sounds, soft. ABSENT: distended, guarding, mass, organolmegaly, rebound, tenderness Results Laboratory Results: 10/29/18 04:01 10/29/18 04:01 10/28/18 10/28/18 10/29/18 12:58 12:58 04:01 WBC 22.7 H RBC 4.03 L Hgb 11.8 L Hct 35.0 L MCV 87 MCH 29.4 MCHC 33.8 RDW 15.9 H Plt Count 147 L Seg Neutrophils % Not Reportable Lymphocytes % Not Reportable Monocytes % Not Reportable Eosinophils % Not Reportable Basophils % Not Reportable Absolute Neutrophils Not Reportable Absolute Lymphocytes Not Reportable Absolute Monocytes Not Reportable Absolute Eosinophils Not Reportable Absolute Basophils Not Reportable Sodium Potassium Chloride Carbon Dioxide Anion Gap BUN Creatinine Est GFR ( Amer) Est GFR (Non-Af Amer) Glucose Calcium Magnesium Total Bilirubin AST ALT Alkaline Phosphatase Total Protein Albumin Fluid Tube Number 3 CSF Volume 9.0 CSF Appearance CLOUDY CSF Color STRAW CSF WBC 2355 H CSF RBC 153 CSF Polymorphonuclear 88 CSF Glucose < 20 L CSF Total Protein 520 H 10/29/18 04:01 WBC RBC Hgb Hct MCV MCH MCHC RDW Plt Count Seg Neutrophils % Lymphocytes % Monocytes % Eosinophils % Basophils % Absolute Neutrophils Absolute Lymphocytes Absolute Monocytes Absolute Eosinophils Absolute Basophils Sodium 129.3 L Potassium 4.1 Chloride 98 Carbon Dioxide 19 L Anion Gap 12 BUN 16 Creatinine 0.61 Est GFR ( Amer) > 60 Est GFR (Non-Af Amer) > 60 Glucose 138 H Calcium 9.3 Magnesium 2.1 Total Bilirubin 0.5 AST 16 L ALT 14 L Alkaline Phosphatase 85 Total Protein 6.2 L Albumin 3.4 L Fluid Tube Number CSF Volume CSF Appearance CSF Color CSF WBC CSF RBC CSF Polymorphonuclear CSF Glucose CSF Total Protein 10/27/18 10/27/18 10/27/18 15:45 18:20 18:20 Creatine Kinase Cancelled 143 Troponin I < 0.012 10/28/18 05:55 Creatine Kinase 242 H Troponin I Impressions: Head CT 10/27/18 17:19 IMPRESSION: NORMAL BRAIN CT WITHOUT CONTRAST. EVIDENCE OF ACUTE STROKE: NO. Chest X-Ray 10/28/18 00:00 IMPRESSION: No acute cardiopulmonary findings. Guidance Fluoroscopy 10/28/18 00:00 IMPRESSION: Lumbar puncture under fluoroscopy. No immediate complication. Lumbar Puncture 10/28/18 00:00 IMPRESSION: Lumbar puncture under fluoroscopy. No immediate complication. Assessment & Plan - Diagnosis (1) Acute encephalopathy Is this a current diagnosis for this admission?: Yes Plan: Due to bacterial meningitis. I will continue ceftriaxone, vancomycin and Decadron. I will de-escalate the antibiotics based on his clinical progress and the sensitivity pattern of the culture results. (2) Leukocytosis Is this a current diagnosis for this admission?: Yes Plan: Trending down (3) Bacterial meningitis Is this a current diagnosis for this admission?: Yes Plan: Continue ceftriaxone, vancomycin and Decadron. (4) Depression Is this a current diagnosis for this admission?: Yes Plan: Psych follow-up as outpatient when he recovered (5) Tobacco and alcohol dependence Is this a current diagnosis for this admission?: Yes Plan: I will counseled and encouraged the patient when he recovered his current condition. (6) Polysubstance abuse Is this a current diagnosis for this admission?: Yes Plan: Patient will be counseled when recovered
[2018-10-29] MEDS: VANCOMYCIN HCL INJ 1000 MG VIAL IV SCH (11:33)
--- NOTE | 2018-10-29 11:36 | PSYCHOLOGICAL NOTE ---
Psych Note - Psych Note Date seen by psych provider: 10/29/18 Time seen by psych provider: 10:05 Psych Note: Reason for Consult: Possible OD 10/29/18 @ [address] Fish, patient is strictly medical with bacterial meningitis. Patient's tocivology screen was negative for all substances. Consult to be cancelled. Please reconsult Behavioral Health if further needs or questions arise.
[2018-10-29] MEDS: NICOTINE 21 MG/24 HR PATCH.TD24 TD SCH (11:41)
[2018-10-29] MEDS: FENTANYL CITRATE INJ/PF 100 MCG/2 ML AMPUL IV PRN ×2 (11:41→20:24)
[2018-10-29] MEDS: CEFTRIAXONE 2 GM/D5W RTU 2 GM/50 ML RTUPB IV SCH ×2 (11:41→22:01)
[2018-10-29 14:13] LABS: VANCOMYCIN,TROUGH < 5.0 ug/mL (5.0-20.0)
[2018-10-29] MEDS: VANCOMYCIN HCL 1,250 MG in DEXTROSE 5%-WATER 250 ML IV SCH ×2 (15:15→22:03)
[2018-10-29] MEDS ORDERED: DEXTROSE 40% GEL 15 GM TUBE PO PRN (20:00)
[2018-10-29] MEDS ORDERED: GLUCAGON,HUMAN RECOMB 1 MG INJ IM PRN (20:00)
[2018-10-29] MEDS ORDERED: DEXTROSE 40% GEL 15 GM TUBE X 2 PO PRN (20:00)
[2018-10-29] MEDS ORDERED: DEXTROSE 50%-WATER SYRINGE 25 GM/50 ML DOSE IV PRN (20:00)
[2018-10-29] MEDS ORDERED: DEXTROSE 50%-WATER SYRINGE 12.5 GM/25 ML DOSE IV PRN (20:00)
[2018-10-29] MEDS: DEXTROSE 5%-NORMAL SALINE 1,000 ML IV PRN (20:25)
[2018-10-29] MEDS: INSULIN LISPRO 100 UNIT/ML 3 ML VIAL SUBCUT SCH (22:34)
[2018-10-30] MEDS: DEXAMETHASONE SOD PHOS INJ 10 MG/1 ML VIAL IV SCH ×4 (00:24→17:09)
[2018-10-30] MEDS: IPRATROPIUM/ALBUTEROL 0.5-2.5 MG/3 ML AMPUL NEB SCH ×4 (02:01→20:11)
[2018-10-30 04:19] LABS: HEMATOCRIT 36.7 % (37.9-51.0); HEMOGLOBIN 12.4 g/dL (13.5-17.0); MEAN CORPUSCULAR HEMOGLOBIN 29.7 pg (27.0-33.4); MEAN CORPUSCULAR HGB CONC 33.9 g/dL (32.0-36.0); MEAN CORPUSCULAR VOLUME 88 fl (80-97); PLATELET COUNT 131 10^3/uL (150-450); RED BLOOD COUNT 4.18 10^6/uL (4.35-5.55); RED CELL DISTRIBUTION WIDTH 15.8 % (11.5-14.0); WHITE BLOOD COUNT 9.4 10^3/uL (4.0-10.5)
[2018-10-30 04:28] LABS: ANION GAP 9 (5-19); BLOOD UREA NITROGEN 25 mg/dL (7-20); CALCIUM 9.3 mg/dL (8.4-10.2); CARBON DIOXIDE 22 mmol/L (22-30); CHLORIDE 105 mmol/L (98-107); GLUCOSE 189 mg/dL (75-110); POTASSIUM 3.6 mmol/L (3.6-5.0); SODIUM 135.9 mmol/L (137-145)
[2018-10-30 04:46] LABS: ABSOLUTE LYMPHOCYTES# (MANUAL) 0.1 10^3/uL (0.5-4.7); ABSOLUTE MONOCYTES # (MANUAL) 0.3 10^3/uL (0.1-1.4); BASOPHILS % (MANUAL) 0 % (0-2); EOSINOPHILS % (MANUAL) 0 % (0-6); LYMPHOCYTES % (MANUAL) 1 % (13-45); MONOCYTES % (MANUAL) 3 % (3-13); SEGMENTED NEUTROPHILS % (MAN) 96 % (42-78); TOTAL CELLS COUNTED 100
[2018-10-30 04:49] LABS: ANISOCYTOSIS SLIGHT; OVALOCYTES 1+; PLATELET COMMENT ADEQUATE; POIKILOCYTOSIS 1+; SCHISTOCYTES SLIGHT; TEAR DROP CELLS SLIGHT; TOXIC GRANULATION 1+; TOXIC VACUOLATION PRESENT
[2018-10-30] MEDS: VANCOMYCIN HCL 1,250 MG in DEXTROSE 5%-WATER 250 ML IV SCH (05:01)
--- NOTE | 2018-10-30 10:23 | PDOC PROGRESS REPORT ---
Subjective Progress Note for:: 10/30/18 Subjective:: Patient seen and examined at bedside. He is awake alert and conversant. Now he is without oxygen and he is saturating well. His vital signs are stable. His blood and CSF culture grew strep pneumoniae which is pansensitive so I discontinued vancomycin and continue with ceftriaxone 2 g every 12 hours. Reason For Visit: ALTERED MENTAL STATUS Physical Exam Vital Signs: Temp Pulse Resp BP Pulse Ox 97.9 F 83 18 112/73 99 10/30/18 08:00 10/30/18 08:19 10/30/18 08:19 10/30/18 08:00 10/30/18 08:19 Intake & Output 10/29/18 10/30/18 10/31/18 06:59 06:59 06:59 Intake Total 2250 550 Output Total 1375 1945 50 Balance 875 -1395 -50 Weight 71 kg 69.1 kg General appearance: PRESENT: no acute distress Head exam: PRESENT: atraumatic, normocephalic Eye exam: PRESENT: conjunctiva pink Mouth exam: PRESENT: moist Neck exam: ABSENT: carotid bruit, JVD, lymphadenopathy, thyromegaly Respiratory exam: PRESENT: clear to auscultation nas. ABSENT: rales, rhonchi, wheezes Cardiovascular exam: PRESENT: RRR. ABSENT: diastolic murmur, rubs, systolic murmur Neurological exam: PRESENT: alert, awake Results Laboratory Results: 10/30/18 03:57 10/30/18 03:57 10/30/18 10/30/18 03:57 03:57 WBC 9.4 RBC 4.18 L Hgb 12.4 L Hct 36.7 L MCV 88 MCH 29.7 MCHC 33.9 RDW 15.8 H Plt Count 131 L Seg Neutrophils % Not Reportable Lymphocytes % Not Reportable Monocytes % Not Reportable Eosinophils % Not Reportable Basophils % Not Reportable Absolute Neutrophils Not Reportable Absolute Lymphocytes Not Reportable Absolute Monocytes Not Reportable Absolute Eosinophils Not Reportable Absolute Basophils Not Reportable Sodium 135.9 L Potassium 3.6 Chloride 105 Carbon Dioxide 22 Anion Gap 9 BUN 25 H Creatinine 0.64 Est GFR ( Amer) > 60 Est GFR (Non-Af Amer) > 60 Glucose 189 H Calcium 9.3 10/28/18 10:55 Blood Blood Culture - Final Streptococcus Pneumoniae 10/28/18 10:55 Blood Blood Culture - Final Streptococcus Pneumoniae 10/28/18 12:58 Cerebral Spinal Fluid - Tube 1 (Csf) Gram Stain - Final 10/28/18 12:58 Cerebral Spinal Fluid - Tube 1 (Csf) CSF Culture - Final Streptococcus Pneumoniae 10/27/18 10/27/18 10/27/18 15:45 18:20 18:20 Creatine Kinase Cancelled 143 Troponin I < 0.012 10/28/18 05:55 Creatine Kinase 242 H Troponin I Impressions: Head CT 10/27/18 17:19 IMPRESSION: NORMAL BRAIN CT WITHOUT CONTRAST. EVIDENCE OF ACUTE STROKE: NO. Chest X-Ray 10/28/18 00:00 IMPRESSION: No acute cardiopulmonary findings. Guidance Fluoroscopy 10/28/18 00:00 IMPRESSION: Lumbar puncture under fluoroscopy. No immediate complication. Lumbar Puncture 10/28/18 00:00 IMPRESSION: Lumbar puncture under fluoroscopy. No immediate complication. Assessment & Plan - Diagnosis (1) Acute encephalopathy Is this a current diagnosis for this admission?: Yes Plan: Improving (2) Leukocytosis Is this a current diagnosis for this admission?: Yes Plan: Improving (3) Bacterial meningitis Is this a current diagnosis for this admission?: Yes Plan: DC vancomycin and continue with ceftriaxone. (4) Depression Is this a current diagnosis for this admission?: Yes Plan: Psych follow-up as outpatient when he recovered (5) Tobacco and alcohol dependence Is this a current diagnosis for this admission?: Yes Plan: I will counseled and encouraged the patient when he recovered his current condition. (6) Polysubstance abuse Is this a current diagnosis for this admission?: Yes Plan: Patient will be counseled when recovered
[2018-10-30] MEDS: NICOTINE 21 MG/24 HR PATCH.TD24 TD SCH (10:36)
[2018-10-30] MEDS: INSULIN LISPRO 100 UNIT/ML 3 ML VIAL SUBCUT SCH ×4 (10:36→22:53)
[2018-10-30] MEDS: CEFTRIAXONE 2 GM/D5W RTU 2 GM/50 ML RTUPB IV SCH ×2 (10:37→22:26)
[2018-10-30] MEDS: FENTANYL CITRATE INJ/PF 100 MCG/2 ML AMPUL IV PRN ×3 (13:17→22:43)
[2018-10-30] MEDS: HEPARIN SOD (PORCINE) 5,000 UNIT/ML 1 ML SYRINGE SUBCUT SCH ×3 (13:18→22:36)
[2018-10-30] MEDS: GABAPENTIN 400 MG CAPSULE PO SCH ×2 (13:18→22:26)
[2018-10-30 14:23] LABS: VANCOMYCIN,TROUGH 16.1 ug/mL (5.0-20.0)
[2018-10-30] MEDS: DEXTROSE 5%-NORMAL SALINE 1,000 ML IV PRN (16:52)
[2018-10-30] MEDS: ACETAMINOPHEN 325 MG TABLET PO PRN (17:08)
[2018-10-31] MEDS: DEXAMETHASONE SOD PHOS INJ 10 MG/1 ML VIAL IV SCH ×4 (00:03→18:44)
[2018-10-31] MEDS: HEPARIN SOD (PORCINE) 5,000 UNIT/ML 1 ML SYRINGE SUBCUT SCH ×4 (00:54→21:07)
[2018-10-31 04:01] LABS: ABSOLUTE LYMPHOCYTES (AUTO) 0.4 10^3/uL (0.5-4.7); ABSOLUTE MONOCYTES (AUTO) 0.2 10^3/uL (0.1-1.4); ABSOLUTE NEUT (AUTO) 4.8 10^3/uL (1.7-8.2); BASOPHILS % (AUTO) 0.3 % (0-2); HEMATOCRIT 35.7 % (37.9-51.0); LYMPHOCYTES % (AUTO) 7.8 % (13-45); MEAN CORPUSCULAR HEMOGLOBIN 29.4 pg (27.0-33.4); MEAN CORPUSCULAR HGB CONC 33.7 g/dL (32.0-36.0); MEAN CORPUSCULAR VOLUME 87 fl (80-97); MONOCYTES % (AUTO) 3.4 % (3-13); PLATELET COUNT 137 10^3/uL (150-450); RED BLOOD COUNT 4.09 10^6/uL (4.35-5.55); SEGMENTED NEUTROPHILS % (AUTO) 88.5 % (42-78); TOTAL CELLS COUNTED % (AUTO) 100 %; WHITE BLOOD COUNT 5.4 10^3/uL (4.0-10.5)
[2018-10-31 04:17] LABS: ANION GAP 8 (5-19); BLOOD UREA NITROGEN 23 mg/dL (7-20); CARBON DIOXIDE 22 mmol/L (22-30); CHLORIDE 109 mmol/L (98-107); GLUCOSE 181 mg/dL (75-110); POTASSIUM 3.6 mmol/L (3.6-5.0); SODIUM 139.3 mmol/L (137-145)
[2018-10-31] MEDS: GABAPENTIN 400 MG CAPSULE PO SCH ×3 (05:40→21:07)
[2018-10-31] MEDS ORDERED: (PENDING PHARMACY ID) (Lisinopril [Lisinopril] 20 MG) PO SCH (10:00)
[2018-10-31] MEDS ORDERED: VANCOMYCIN HCL 0 MG in DEXTROSE 5%-WATER 250 ML IV NR (10:00)
[2018-10-31] MEDS ORDERED: LISINOPRIL 10 MG TABLET PO SCH (10:00)
[2018-10-31] MEDS: ACETAMINOPHEN 325 MG TABLET PO PRN ×2 (10:27→13:40)
[2018-10-31] MEDS: NICOTINE 21 MG/24 HR PATCH.TD24 TD SCH (10:27)
[2018-10-31] MEDS: OXYCODONE-ACETAMINOPHEN 5-325 MG TABLET PO PRN ×2 (10:27→18:49)
[2018-10-31] MEDS: CEFTRIAXONE 2 GM/D5W RTU 2 GM/50 ML RTUPB IV SCH ×2 (10:28→21:07)
--- NOTE | 2018-10-31 11:21 | PDOC PROGRESS REPORT ---
Subjective Progress Note for:: 10/31/18 Subjective:: This is 43 years old male patient brought by EMS for altered mental status. Patient has underlying past medical history of depression, suicide attempt, tobacco dependence, alcohol dependence and polysubstance abuse. At ER patient found to have T-max of 101.5. And has marked leukocytosis of 31,000 and mildly elevated lactic acid. With impression of meningitis LP was done and the gross appearance was cloudy and CSF profile showed WBC of 2355, glucose less than 20 and total protein is 520. Both of his blood culture grew gram-positive cocci in chains and the CSF culture is positive for gram-positive cocci in pair. Patient has been on vancomycin, ceftriaxone and Decadron. At admission his white cell count was 31,000 and now today it is 5000. Based on blood and CSF culture results and sensitivity pattern I discontinued his vancomycin keep him o n ceftriaxone alone but repeat blood culture 1 of the 2 bottles grew gram- positive cocci in clusters so I restarted him back on vancomycin. Decadron need to be discontinued tomorrow. Clinically patient is stable now awake alert oriented and conversant and his vital signs are stable so patient is downgraded to IMCU. Reason For Visit: ALTERED MENTAL STATUS Physical Exam Vital Signs: Temp Pulse Resp BP Pulse Ox 97.3 F 64 13 146/93 H 100 10/31/18 07:24 10/31/18 07:24 10/31/18 11:00 10/31/18 10:01 10/31/18 11:00 Intake & Output 10/30/18 10/31/18 11/01/18 06:59 06:59 06:59 Intake Total 600 1050 1050 Output Total 1945 985 Balance -1345 65 1050 Weight 69.1 kg 70.1 kg Results Laboratory Results: 10/31/18 03:49 10/31/18 03:49 10/31/18 10/31/18 03:49 03:49 WBC 5.4 RBC 4.09 L Hgb 12.0 L Hct 35.7 L MCV 87 MCH 29.4 MCHC 33.7 RDW 16.0 H Plt Count 137 L Seg Neutrophils % 88.5 H Lymphocytes % 7.8 L Monocytes % 3.4 Eosinophils % 0.0 Basophils % 0.3 Absolute Neutrophils 4.8 Absolute Lymphocytes 0.4 L Absolute Monocytes 0.2 Absolute Eosinophils 0.0 Absolute Basophils 0.0 Sodium 139.3 Potassium 3.6 Chloride 109 H Carbon Dioxide 22 Anion Gap 8 BUN 23 H Creatinine 0.57 Est GFR ( Amer) > 60 Est GFR (Non-Af Amer) > 60 Glucose 181 H Calcium 9.0 10/27/18 20:24 Catheterized Urine Urine Culture - Final NO GROWTH 2 DAYS 10/28/18 10:55 Blood Blood Culture - Final Streptococcus Pneumoniae 10/28/18 10:55 Blood Blood Culture - Final Streptococcus Pneumoniae 10/28/18 12:58 Cerebral Spinal Fluid - Tube 1 (Csf) Gram Stain - Final 10/28/18 12:58 Cerebral Spinal Fluid - Tube 1 (Csf) CSF Culture - Final Streptococcus Pneumoniae 10/27/18 10/27/18 10/27/18 15:45 18:20 18:20 Creatine Kinase Cancelled 143 Troponin I < 0.012 10/28/18 05:55 Creatine Kinase 242 H Troponin I Impressions: Head CT 10/27/18 17:19 IMPRESSION: NORMAL BRAIN CT WITHOUT CONTRAST. EVIDENCE OF ACUTE STROKE: NO. Chest X-Ray 10/28/18 00:00 IMPRESSION: No acute cardiopulmonary findings. Guidance Fluoroscopy 10/28/18 00:00 IMPRESSION: Lumbar puncture under fluoroscopy. No immediate complication. Lumbar Puncture 10/28/18 00:00 IMPRESSION: Lumbar puncture under fluoroscopy. No immediate complication. Assessment & Plan - Diagnosis (1) Acute encephalopathy Is this a current diagnosis for this admission?: Yes Plan: Improving (2) Leukocytosis Is this a current diagnosis for this admission?: Yes Plan: Resolved (3) Bacterial meningitis Is this a current diagnosis for this admission?: Yes Plan: On vancomycin and ceftriaxone. (4) Depression Is this a current diagnosis for this admission?: Yes Plan: Psych follow-up as outpatient when he recovered (5) Tobacco and alcohol dependence Is this a current diagnosis for this admission?: Yes Plan: I will counseled and encouraged the patient when he recovered his current cond ition. (6) Polysubstance abuse Is this a current diagnosis for this admission?: Yes Plan: Patient will be counseled when recovered
--- NOTE | 2018-10-31 15:17 | PSYCHOLOGICAL NOTE ---
Psych Note - Psych Note Date seen by psych provider: 10/31/18 Psych Note: Patient was previously on IVC petition. This petition has lapsed and no other actions need to be conducted. Patient has been cleared from acute psychiatric services as patient is presentation was due to medical concerns not mental health.
[2018-10-31] MEDS: VANCOMYCIN HCL 1,000 MG in DEXTROSE 5%-WATER 250 ML IV SCH (18:44)
[2018-11-01 01:36] LABS: HSV I DNA Negative (Negative)
[2018-11-01] MEDS: DEXAMETHASONE SOD PHOS INJ 10 MG/1 ML VIAL IV SCH ×3 (01:43→13:01)
[2018-11-01] MEDS: VANCOMYCIN HCL 1,000 MG in DEXTROSE 5%-WATER 250 ML IV SCH ×3 (01:46→18:26)
[2018-11-01] MEDS: HEPARIN SOD (PORCINE) 5,000 UNIT/ML 1 ML SYRINGE SUBCUT SCH ×3 (05:07→21:33)
[2018-11-01] MEDS: GABAPENTIN 400 MG CAPSULE PO SCH ×3 (05:07→21:33)
[2018-11-01 08:01] LABS: HSV II DNA Negative (Negative)
[2018-11-01] MEDS: OXYCODONE-ACETAMINOPHEN 5-325 MG TABLET PO PRN ×2 (09:19→18:52)
[2018-11-01] MEDS: CEFTRIAXONE 2 GM/D5W RTU 2 GM/50 ML RTUPB IV SCH ×2 (09:20→21:34)
[2018-11-01] MEDS: NICOTINE 21 MG/24 HR PATCH.TD24 TD SCH (09:20)
--- NOTE | 2018-11-01 17:34 | PDOC PROGRESS REPORT ---
Subjective Subjective:: 43 year old male with a past medical history of polysubstance abuse, alcohol, tobacco dependent, chronic pain, depression suicide attempt by overdose. Patient is unable to provide history and subsequently history is obtained by the medical record of the emergency room provider. Patient was found disheveled, on the ground awake, alert and oriented x0, nonverbal moving all 4 extremities at home with empty bottles of Valium and oxycodone last seen normal by his power of immigration attorney and sister 3 days ago. He is brought to the emergency room and received Narcan without significant response he remains awake and alert moving all 4 extremities and withdrawing from noxious stimuli. He has fever, leukocytosis no obvious source of infection, urine drug screen is positive for THC. He is referred to the hospitalist for admission. [id number]-old male admitted with altered mental status Narcan was given on the way to the hospital still in altered mental status his WBC count is 33,000+ and he has a fever of 101.5 this morning. Chest x-ray was negative for pneumonia. There is no obvious source of infection at this moment. Plan is to do the blood cultures urine culture and lumbar puncture. And started on IV Rocephin and IV Levaquin. Lactic acid initially 1 2.3 came down to 1.9 with IV fluids. Most likely he meets the criteria for SIRS. 11/01/2018: 43-year-old male admitted with altered mental status found to have a bacterial meningitis. He is showing significant recovery. Presently is on IV vancomycin and Zosyn. Comfortably in the bed communicating very well. Reason For Visit: ALTERED MENTAL STATUS Physical Exam Vital Signs: Temp Pulse Resp BP Pulse Ox 97.5 F 66 20 155/91 H 97 11/01/18 15:58 11/01/18 15:58 11/01/18 15:58 11/01/18 15:58 11/01/18 15:58 Intake & Output 10/31/18 11/01/18 11/02/18 06:59 06:59 06:59 Intake Total 1050 2672 1180 Output Total 985 1900 600 Balance 65 772 580 Weight 70.1 kg 70.1 kg General appearance: PRESENT: no acute distress, thin Head exam: PRESENT: atraumatic Eye exam: PRESENT: PERRLA Mouth exam: PRESENT: moist, tongue midline Neck exam: ABSENT: carotid bruit, JVD, lymphadenopathy, thyromegaly Respiratory exam: PRESENT: decreased breath sounds Cardiovascular exam: PRESENT: tachycardia GI/Abdominal exam: PRESENT: normal bowel sounds, soft. ABSENT: distended, guarding, mass, organolmegaly, rebound, tenderness Extremities exam: PRESENT: full ROM. ABSENT: calf tenderness, clubbing, pedal e christine Neurological exam: PRESENT: alert, awake, oriented to person, oriented to place, oriented to time, oriented to situation, CN II-XII grossly intact. ABSENT: motor sensory deficit Psychiatric exam: PRESENT: appropriate affect, normal mood. ABSENT: homicidal ideation, suicidal ideation Results Laboratory Results: 10/31/18 03:49 10/31/18 03:49 10/29/18 10:26 Blood Blood Culture - Final Staphylococcus Epidermidis 10/27/18 10/27/18 10/27/18 15:45 18:20 18:20 Creatine Kinase Cancelled 143 Troponin I < 0.012 10/28/18 05:55 Creatine Kinase 242 H Troponin I Impressions: Head CT 10/27/18 17:19 IMPRESSION: NORMAL BRAIN CT WITHOUT CONTRAST. EVIDENCE OF ACUTE STROKE: NO. Chest X-Ray 10/28/18 00:00 IMPRESSION: No acute cardiopulmonary findings. Guidance Fluoroscopy 10/28/18 00:00 IMPRESSION: Lumbar puncture under fluoroscopy. No immediate complication. Lumbar Puncture 10/28/18 00:00 IMPRESSION: Lumbar puncture under fluoroscopy. No immediate complication. Assessment and Plan - Diagnosis (1) Acute encephalopathy Is this a current diagnosis for this admission?: Yes Plan: 11/01/18 17:32 Acute encephalopathy/altered mental status secondary to bacterial meningitis is resolved. (2) Leukocytosis Qualifiers: Leukocytosis type: unspecified Qualified Code(s): D72.829 - Elevated white blood cell count, unspecified Is this a current diagnosis for this admission?: Yes Plan: 11/01/18 17:33 Leukocytosis secondary to bacterial meningitis is resolved. Presently is on IV vancomycin and Zosyn. (3) Elevated lactic acid level Is this a current diagnosis for this admission?: Yes Plan: 11/01/18 17:33 11/01/2018-elevated lactic acid secondary to sepsis is resolved. (4) Tobacco abuse Is this a current diagnosis for this admission?: Yes (5) Hyponatremia Is this a current diagnosis for this admission?: Yes Plan: 11/01/18 17:33 11/01/2018 serum sodium level is 139 hyponatremia is resolved. (6) Hypokalemia Is this a current diagnosis for this admission?: Yes Plan: 11/01/18 17:33 Potassium level today 3.6 hyponatremia is resolved. (7) Bacterial meningitis Is this a current diagnosis for this admission?: Yes Plan: 11/01/18 17:34 Patient is on IV vancomycin and ceftriaxone plan is to continue the present management. Dexamethasone is discontinued. Patient shows significant improvement in medical condition. - Time Time Spent with patient: 15-24 minutes Smoking Cessation Education: over 10 minutes Medications reviewed and adjusted accordingly: Yes Anticipated discharge: Home
[2018-11-01] MEDS: OXYCODONE HCL IR 5 MG TABLET PO PRN (18:51)
[2018-11-01 18:58] LABS: VANCOMYCIN,TROUGH 10.8 ug/mL (5.0-20.0)
[2018-11-02] MEDS: VANCOMYCIN HCL 1,000 MG in DEXTROSE 5%-WATER 250 ML IV SCH (01:04)
[2018-11-02] MEDS: HEPARIN SOD (PORCINE) 5,000 UNIT/ML 1 ML SYRINGE SUBCUT SCH ×3 (05:04→21:59)
[2018-11-02] MEDS: GABAPENTIN 400 MG CAPSULE PO SCH ×3 (05:04→21:59)
[2018-11-02 06:46] LABS: HEMATOCRIT 38.5 % (37.9-51.0); HEMOGLOBIN 13.1 g/dL (13.5-17.0); MEAN CORPUSCULAR HEMOGLOBIN 29.5 pg (27.0-33.4); MEAN CORPUSCULAR VOLUME 87 fl (80-97); RED BLOOD COUNT 4.43 10^6/uL (4.35-5.55); RED CELL DISTRIBUTION WIDTH 15.7 % (11.5-14.0); WHITE BLOOD COUNT 8.5 10^3/uL (4.0-10.5)
[2018-11-02 07:09] LABS: ALANINE AMINOTRANSFERASE 50 U/L (21-72); ALBUMIN 2.8 g/dL (3.5-5.0); ALKALINE PHOSPHATASE 59 U/L (38-126); ANION GAP 8 (5-19); ASPARTATE AMINO TRANSFERASE 16 U/L (17-59); BILIRUBIN,DIRECT 0.4 mg/dL (0.0-0.4); BILIRUBIN,TOTAL 0.5 mg/dL (0.2-1.3); BLOOD UREA NITROGEN 27 mg/dL (7-20); CALCIUM 8.6 mg/dL (8.4-10.2); CARBON DIOXIDE 22 mmol/L (22-30); CHLORIDE 104 mmol/L (98-107); GLUCOSE 134 mg/dL (75-110); POTASSIUM 4.2 mmol/L (3.6-5.0); SODIUM 133.5 mmol/L (137-145); TOTAL PROTEIN 5.5 g/dL (6.3-8.2)
[2018-11-02 07:59] LABS: PLATELET COUNT 287 10^3/uL (150-450)
[2018-11-02 08:15] LABS: ABSOLUTE MONOCYTES # (MANUAL) 0.9 10^3/uL (0.1-1.4); ABSOLUTE NEUTROPHILS# (MANUAL) 6.5 10^3/uL (1.7-8.2); BASOPHILS % (MANUAL) 0 % (0-2); EOSINOPHILS % (MANUAL) 0 % (0-6); LYMPHOCYTES % (MANUAL) 10 % (13-45); MONOCYTES % (MANUAL) 11 % (3-13); SEGMENTED NEUTROPHILS % (MAN) 77 % (42-78); TOTAL CELLS COUNTED 100
[2018-11-02 08:16] LABS: ANISOCYTOSIS SLIGHT
[2018-11-02] MEDS: OXYCODONE-ACETAMINOPHEN 5-325 MG TABLET PO PRN ×3 (08:16→20:20)
[2018-11-02 08:17] LABS: PLATELET COMMENT ADEQUATE
[2018-11-02] MEDS: OXYCODONE HCL IR 5 MG TABLET PO PRN ×3 (08:17→20:21)
[2018-11-02] MEDS: NICOTINE 21 MG/24 HR PATCH.TD24 TD SCH (10:12)
[2018-11-02] MEDS: VANCOMYCIN HCL 1,250 MG in DEXTROSE 5%-WATER 250 ML IV SCH ×2 (10:15→17:36)
[2018-11-02] MEDS: CEFTRIAXONE 2 GM/D5W RTU 2 GM/50 ML RTUPB IV SCH ×2 (12:04→22:00)
[2018-11-02] MEDS ORDERED: LISINOPRIL 10 MG TABLET PO ONE (14:08)
[2018-11-02] MEDS ORDERED: LORAZEPAM INJ 2 MG/1 ML VIAL IV PRN (14:09)
--- NOTE | 2018-11-02 14:14 | PDOC PROGRESS REPORT ---
Subjective Progress Note for:: 11/02/18 Subjective:: 43 year old male with a past medical history of polysubstance abuse, alcohol, tobacco dependent, chronic pain, depression suicide attempt by overdose. Patient is unable to provide history and subsequently history is obtained by the medical record of the emergency room provider. Patient was found disheveled, on the ground awake, alert and oriented x0, nonverbal moving all 4 extremities at home with empty bottles of Valium and oxycodone last seen normal by his power of mergers and acquisitions attorney and sister 3 days ago. He is brought to the emergency room and received Narcan without significant response he remains awake and alert moving all 4 extremities and withdrawing from noxious stimuli. He has fever, leukocytosis no obvious source of infection, urine drug screen is positive for THC. He is referred to the hospitalist for admission. 10/28/[id number]-old male admitted with altered mental status Narcan was given on the way to the hospital still in altered mental status his WBC count is 33,000+ and he has a fever of 101.5 this morning. Chest x-ray was negative for pneumonia. There is no obvious source of infection at this moment. Plan is to do the blood cultures urine culture and lumbar puncture. And started on IV Rocephin and IV Levaquin. Lactic acid initially 1 2.3 came down to 1.9 with IV fluids. Most likely he meets the criteria for SIRS. 11/01/2018: 43-year-old male admitted with altered mental status found to have a bacterial meningitis. He is showing significant recovery. Presently is on IV vancomycin and Zosyn. Comfortably in the bed communicating very well. 11/02/[id number]-old male admitted with altered mental status found to have a bacterial meningitis dexamethasone was discontinued yesterday he still on IV vancomycin and Zosyn. Plan is to continue the present management. pt is complaining of headaches other than that he is doing fine. No acute events in the last 24 hours. Patient is afebrile. Blood pressure is elevated this morning 170/104 he received hydralazine 10 mg IV as needed dose to start him on lisinopril 10 mg daily and to give 10 mg p.o. 1 dose today. Reason For Visit: ALTERED MENTAL STATUS Physical Exam Vital Signs: Temp Pulse Resp BP Pulse Ox 98.4 F 62 16 151/99 H 97 11/02/18 12:00 11/02/18 12:00 11/02/18 12:00 11/02/18 12:00 11/02/18 12:00 Intake & Output 11/01/18 11/02/18 11/03/18 06:59 06:59 06:59 Intake Total 2672 2506 300 Output Total 1900 1600 Balance 772 906 300 Weight 70.1 kg 70.8 kg General appearance: PRESENT: mild distress, thin Head exam: PRESENT: atraumatic Eye exam: PRESENT: PERRLA Neck exam: ABSENT: carotid bruit, JVD, lymphadenopathy, thyromegaly Respiratory exam: PRESENT: clear to auscultation nas, decreased breath sounds. ABSENT: rales, rhonchi, wheezes Cardiovascular exam: PRESENT: tachycardia GI/Abdominal exam: PRESENT: normal bowel sounds, soft. ABSENT: distended, guarding, mass, organolmegaly, rebound, tenderness Neurological exam: PRESENT: alert, awake, oriented to person, oriented to place, oriented to time, oriented to situation, CN II-XII grossly intact. ABSENT: motor sensory deficit Psychiatric exam: PRESENT: appropriate affect, normal mood. ABSENT: homicidal ideation, suicidal ideation Results Laboratory Results: 11/02/18 06:21 11/02/18 06:21 11/01/18 11/02/18 11/02/18 18:15 06:21 06:21 WBC 8.5 RBC 4.43 Hgb 13.1 L Hct 38.5 MCV 87 MCH 29.5 MCHC 34.0 RDW 15.7 H Plt Count 287 D Seg Neutrophils % Not Reportable Lymphocytes % Not Reportable Monocytes % Not Reportable Eosinophils % Not Reportable Basophils % Not Reportable Absolute Neutrophils Not Reportable Absolute Lymphocytes Not Reportable Absolute Monocytes Not Reportable Absolute Eosinophils Not Reportable Absolute Basophils Not Reportable Sodium 133.5 L Potassium 4.2 Chloride 104 Carbon Dioxide 22 Anion Gap 8 BUN 27 H Creatinine 0.63 0.55 Est GFR ( Amer) > 60 > 60 Est GFR (Non-Af Amer) > 60 > 60 Glucose 134 H Calcium 8.6 Magnesium 2.5 H Total Bilirubin 0.5 AST 16 L ALT 50 Alkaline Phosphatase 59 Total Protein 5.5 L Albumin 2.8 L 10/28/18 12:58 Cerebral Spinal Fluid - Csf Herpes Simplex Culture & Type - Final 10/29/18 10:26 Blood Blood Culture - Final Staphylococcus Epidermidis 10/27/18 10/27/18 10/27/18 15:45 18:20 18:20 Creatine Kinase Cancelled 143 Troponin I < 0.012 10/28/18 05:55 Creatine Kinase 242 H Troponin I Impressions: Head CT 10/27/18 17:19 IMPRESSION: NORMAL BRAIN CT WITHOUT CONTRAST. EVIDENCE OF ACUTE STROKE: NO. Chest X-Ray 10/28/18 00:00 IMPRESSION: No acute cardiopulmonary findings. Guidance Fluoroscopy 10/28/18 00:00 IMPRESSION: Lumbar puncture under fluoroscopy. No immediate complication. Lumbar Puncture 10/28/18 00:00 IMPRESSION: Lumbar puncture under fluoroscopy. No immediate complication. Assessment and Plan - Diagnosis (1) Acute encephalopathy Is this a current diagnosis for this admission?: Yes Plan: 11/01/18 17:32 Acute encephalopathy/altered mental status secondary to bacterial meningitis is resolved. 11/02/2018 acute encephalopathy/altered mental status due to bacterial meningitis is resolved. Patient is alert and awake communicating very well. no Focal neurological deficits. (2) Leukocytosis Qualifiers: Leukocytosis type: unspecified Qualified Code(s): D72.829 - Elevated white blood cell count, unspecified Is this a current diagnosis for this admission?: Yes Plan: 11/01/18 17:33 Leukocytosis secondary to bacterial meningitis is resolved. Presently is on IV vancomycin and Zosyn. 11/02/2018-leukocytosis secondary to bacterial meningitis resolved. Patient is p resently on IV vancomycin and Zosyn plan to continue the present management. WBC count today is 8500. (3) Elevated lactic acid level Is this a current diagnosis for this admission?: Yes Plan: 11/01/18 17:33 11/01/2018-elevated lactic acid secondary to sepsis is resolved. 11/02/2018-patient came in with sepsis and bacterial meningitis initial lactic acid is elevated and subsequently shows downward trend. (4) Tobacco abuse Is this a current diagnosis for this admission?: Yes (5) Hyponatremia Is this a current diagnosis for this admission?: Yes Plan: 11/01/18 17:33 11/01/2018 serum sodium level is 139 hyponatremia is resolved. 11/02/2018-patient's serum sodium level today is 133.5 hyponatremia probably secondary to poor oral intake. Plan is to continue to closely follow the patient check the daily labs on regular basis. (6) Hypokalemia Is this a current diagnosis for this admission?: Yes Plan: 11/01/18 17:33 Potassium level today 3.6 hyponatremia is resolved. 11/02/2018-latest potassium level is 4.2 hypokalemia is resolved. (7) Bacterial meningitis Is this a current diagnosis for this admission?: Yes Plan: 11/01/18 17:34 Patient is on IV vancomycin and ceftriaxone plan is to continue the present management. Dexamethasone is discontinued. Patient shows significant improvement in medical condition. 11/10/2018-the CSF cultures came back positive for strep pneumonia presently on IV vancomycin and ceftriaxone plan is to continue the present management. - Time Time Spent with patient: 15-24 minutes Smoking Cessation Education: over 10 minutes Medications reviewed and adjusted accordingly: Yes Anticipated discharge: Home
[2018-11-03] MEDS: VANCOMYCIN HCL 1,250 MG in DEXTROSE 5%-WATER 250 ML IV SCH ×3 (01:32→17:57)
[2018-11-03] MEDS: OXYCODONE HCL IR 5 MG TABLET PO PRN ×4 (01:59→21:57)
[2018-11-03] MEDS: OXYCODONE-ACETAMINOPHEN 5-325 MG TABLET PO PRN ×4 (01:59→21:58)
[2018-11-03] MEDS: HEPARIN SOD (PORCINE) 5,000 UNIT/ML 1 ML SYRINGE SUBCUT SCH ×3 (06:10→21:46)
[2018-11-03] MEDS: GABAPENTIN 400 MG CAPSULE PO SCH ×3 (06:11→21:47)
[2018-11-03 06:32] LABS: HEMATOCRIT 40.2 % (37.9-51.0); HEMOGLOBIN 13.7 g/dL (13.5-17.0); MEAN CORPUSCULAR HEMOGLOBIN 29.8 pg (27.0-33.4); MEAN CORPUSCULAR HGB CONC 34.1 g/dL (32.0-36.0); MEAN CORPUSCULAR VOLUME 88 fl (80-97); RED CELL DISTRIBUTION WIDTH 15.6 % (11.5-14.0); WHITE BLOOD COUNT 9.1 10^3/uL (4.0-10.5)
[2018-11-03 06:53] LABS: ALANINE AMINOTRANSFERASE 37 U/L (21-72); ALBUMIN 2.7 g/dL (3.5-5.0); ALKALINE PHOSPHATASE 64 U/L (38-126); ANION GAP 9 (5-19); ASPARTATE AMINO TRANSFERASE 10 U/L (17-59); BILIRUBIN,DIRECT 0.3 mg/dL (0.0-0.4); BILIRUBIN,TOTAL 0.3 mg/dL (0.2-1.3); BLOOD UREA NITROGEN 22 mg/dL (7-20); CALCIUM 8.2 mg/dL (8.4-10.2); CARBON DIOXIDE 22 mmol/L (22-30); CHLORIDE 104 mmol/L (98-107); GLUCOSE 121 mg/dL (75-110); POTASSIUM 3.6 mmol/L (3.6-5.0); TOTAL PROTEIN 5.2 g/dL (6.3-8.2)
[2018-11-03 07:44] LABS: ABSOLUTE LYMPHOCYTES# (MANUAL) 2.2 10^3/uL (0.5-4.7); ABSOLUTE MONOCYTES # (MANUAL) 0.8 10^3/uL (0.1-1.4); ANISOCYTOSIS SLIGHT; BAND NEUTROPHILS % (MANUAL) 1 % (3-5); BASOPHILS % (MANUAL) 0 % (0-2); EOSINOPHILS % (MANUAL) 1 % (0-6); LYMPHOCYTES % (MANUAL) 24 % (13-45); METAMYELOCYTES % (MANUAL) 1 % (0); MONOCYTES % (MANUAL) 9 % (3-13); PLATELET CLUMPS PRESENT; SEGMENTED NEUTROPHILS % (MAN) 64 % (42-78); TOTAL CELLS COUNTED 100
[2018-11-03 07:45] LABS: PLATELET COMMENT ADEQUATE; PLATELET COUNT 364 10^3/uL (150-450)
[2018-11-03] MEDS: LISINOPRIL 10 MG TABLET PO SCH (09:29)
[2018-11-03] MEDS: NICOTINE 21 MG/24 HR PATCH.TD24 TD SCH (09:30)
[2018-11-03] MEDS: CEFTRIAXONE 2 GM/D5W RTU 2 GM/50 ML RTUPB IV SCH ×2 (09:30→21:47)
[2018-11-03] MEDS ORDERED: CLONIDINE 0.1 MG/24 HR PATCH.TDWK TD SCH (10:00)
--- NOTE | 2018-11-03 14:09 | PDOC PROGRESS REPORT ---
Subjective Progress Note for:: 11/03/18 Subjective:: 43 year old male with a past medical history of polysubstance abuse, alcohol, tobacco dependent, chronic pain, depression suicide attempt by overdose. Patient is unable to provide history and subsequently history is obtained by the medical record of the emergency room provider. Patient was found disheveled, on the ground awake, alert and oriented x0, nonverbal moving all 4 extremities at home with empty bottles of Valium and oxycodone last seen normal by his power of wardrobe mistress and sister 3 days ago. He is brought to the emergency room and received Narcan without significant response he remains awake and alert moving all 4 extremities and withdrawing from noxious stimuli. He has fever, leukocytosis no obvious source of infection, urine drug screen is positive for THC. He is referred to the hospitalist for admission. 10/28/[id number]-xsst-old male admitted with altered mental status Narcan was given on the way to the hospital still in altered mental status his WBC count is 33,000+ and he has a fever of 101.5 this morning. Chest x-ray was negative for pneumonia. There is no obvious source of infection at this moment. Plan is to do the blood cultures urine culture and lumbar puncture. And started on IV Rocephin and IV Levaquin. Lactic acid initially 1 2.3 came down to 1.9 with IV fluids. Most likely he meets the criteria for SIRS. 11/01/2018: 43-year-old male admitted with altered mental status found to have a bacterial meningitis. He is showing significant recovery. Presently is on IV vancomycin and Zosyn. Comfortably in the bed communicating very well. 11/02/[id number]-izdk-old male admitted with altered mental status found to have a bacterial meningitis dexamethasone was discontinued yesterday he still on IV vancomycin and Zosyn. Plan is to continue the present management. pt is complaining of headaches other than that he is doing fine. No acute events in the last 24 hours. Patient is afebrile. Blood pressure is elevated this morning 170/104 he received hydralazine 10 mg IV as needed dose to start him on lisinopril 10 mg daily and to give 10 mg p.o. 1 dose today. 11/03/2018-no acute events in the last 24 hours. Patient is afebrile. Comfortably in the bed but complaining of heartburn requesting GI cocktail and also complaining of persistent headaches intensity is 4 x 5. He is going to arrange for the CT head without contrast and start on GI cocktail. Patient is preferred to go home with home health. Reason For Visit: ALTERED MENTAL STATUS Physical Exam Vital Signs: Temp Pulse Resp BP Pulse Ox 98.5 F 64 20 136/77 H 98 11/03/18 04:11 11/03/18 07:00 11/03/18 04:11 11/03/18 04:11 11/03/18 04:11 Intake & Output 11/02/18 11/03/18 11/04/18 06:59 06:59 06:59 Intake Total 2506 1351 300 Output Total 1600 1600 Balance 906 -249 300 Weight 70.8 kg 55.4 kg General appearance: PRESENT: no acute distress Head exam: PRESENT: atraumatic Eye exam: PRESENT: PERRLA Mouth exam: PRESENT: moist, tongue midline Neck exam: ABSENT: carotid bruit, JVD, lymphadenopathy, thyromegaly Respiratory exam: PRESENT: decreased breath sounds Cardiovascular exam: PRESENT: tachycardia GI/Abdominal exam: PRESENT: normal bowel sounds, soft. ABSENT: distended, guarding, mass, organolmegaly, rebound, tenderness Extremities exam: PRESENT: full ROM. ABSENT: calf tenderness, clubbing, pedal edema Neurological exam: PRESENT: alert, awake, oriented to person, oriented to place, oriented to time, oriented to situation, CN II-XII grossly intact. ABSENT: motor sensory deficit Psychiatric exam: PRESENT: appropriate affect, normal mood. ABSENT: homicidal ideation, suicidal ideation Results Laboratory Results: 11/03/18 06:07 11/03/18 06:07 11/03/18 11/03/18 06:07 06:07 WBC 9.1 RBC 4.60 Hgb 13.7 Hct 40.2 MCV 88 MCH 29.8 MCHC 34.1 RDW 15.6 H Plt Count 364 Seg Neutrophils % Not Reportable Lymphocytes % Not Reportable Monocytes % Not Reportable Eosinophils % Not Reportable Basophils % Not Reportable Absolute Neutrophils Not Reportable Absolute Lymphocytes Not Reportable Absolute Monocytes Not Reportable Absolute Eosinophils Not Reportable Absolute Basophils Not Reportable Sodium 135.0 L Potassium 3.6 Chloride 104 Carbon Dioxide 22 Anion Gap 9 BUN 22 H Creatinine 0.59 Est GFR ( Amer) > 60 Est GFR (Non-Af Amer) > 60 Glucose 121 H Calcium 8.2 L Magnesium 2.4 H Total Bilirubin 0.3 AST 10 L ALT 37 Alkaline Phosphatase 64 Total Protein 5.2 L Albumin 2.7 L 10/29/18 11:13 Blood Blood Culture - Final NO GROWTH IN 5 DAYS 10/28/18 12:58 Cerebral Spinal Fluid - Csf Herpes Simplex Culture & Type - Final 10/27/18 10/27/18 10/27/18 15:45 18:20 18:20 Creatine Kinase Cancelled 143 Troponin I < 0.012 10/28/18 05:55 Creatine Kinase 242 H Troponin I Impressions: Head CT 10/27/18 17:19 IMPRESSION: NORMAL BRAIN CT WITHOUT CONTRAST. EVIDENCE OF ACUTE STROKE: NO. Chest X-Ray 10/28/18 00:00 IMPRESSION: No acute cardiopulmonary findings. Guidance Fluoroscopy 10/28/18 00:00 IMPRESSION: Lumbar puncture under fluoroscopy. No immediate complication. Lumbar Puncture 10/28/18 00:00 IMPRESSION: Lumbar puncture under fluoroscopy. No immediate complication. Assessment and Plan - Diagnosis (1) Bacterial meningitis Is this a current diagnosis for this admission?: Yes Plan: 11/01/18 17:34 Patient is on IV vancomycin and ceftriaxone plan is to continue the present management. Dexamethasone is discontinued. Patient shows significant improvement in medical condition. 11/10/2018-the CSF cultures came back positive for strep pneumonia presently on IV vancomycin and ceftriaxone plan is to continue the present management. 11/11/2018-CSF culture is positive for strep pneumonia on vancomycin and ceftriaxone is going to complete 7 days of antibiotic therapy tomorrow. May be that he needs at least another 3 days of IV antibiotic therapy in my opinion. (2) Acute encephalopathy Is this a current diagnosis for this admission?: Yes Plan: 11/01/18 17:32 Acute encephalopathy/altered mental status secondary to bacterial meningitis is resolved. 11/02/2018 acute encephalopathy/altered mental status due to bacterial meningitis is resolved. Patient is alert and awake communicating very well. no Focal neurological deficits. 11/03/2018-patient was admitted with altered mental status/acute encephalopathy found to have a bacterial meningitis which was resolving. [place] on ceftriaxone and IV vancomycin. And is to continue the antibiotics for at least another day. T-max is 98.5. (3) Leukocytosis Qualifiers: Leukocytosis type: unspecified Qualified Code(s): D72.829 - Elevated white blood cell count, unspecified Is this a current diagnosis for this admission?: Yes Plan: 11/01/18 17:33 Leukocytosis secondary to bacterial meningitis is resolved. Presently is on IV vancomycin and ceftrioxone 11/02/2018-leukocytosis secondary to bacterial meningitis resolved. Patient is presently on IV vancomycin and reocephin plan to continue the present management. WBC count today is 8500. 11/03/2018--leukocytosis secondary to bacterial meningitis resolved. Latest WBC count is 9100. Patient is presently on 3 oxygen and vancomycin. Plan is to continue antibiotics for at least 1 more day. (4) Elevated lactic acid level Is this a current diagnosis for this admission?: Yes Plan: 11/01/18 17:33 11/01/2018-elevated lactic acid secondary to sepsis is resolved. 11/02/2018-patient came in with sepsis and bacterial meningitis initial lactic acid is elevated and subsequently shows downward trend. 11/03/2018-patient came in with initially with elevated lactic acid levels due to bacterial meningitis the condition is resolved now. (5) Tobacco abuse Is this a current diagnosis for this admission?: Yes Plan: 11/03/2018-patient is a chronic smoker smokes, smokes more than 1 pack/day plan to put him on nicotine patch 21 mg daily. (6) Hyponatremia Is this a current diagnosis for this admission?: Yes Plan: 11/01/18 17:33 11/01/2018 serum sodium level is 139 hyponatremia is resolved. 11/02/2018-patient's serum sodium level today is 133.5 hyponatremia probably secondary to poor oral intake. Plan is to continue to closely follow the patient check the daily labs on regular basis. 11/03/2018 hyponatremia secondary to poor oral intake and sepsis is resolved. Serum sodium level is 135 today. (7) Hypokalemia Is this a current diagnosis for this admission?: Yes Plan: 11/01/18 17:33 Potassium level today 3.6 hyponatremia is resolved. 11/02/2018-latest potassium level is 4.2 hypokalemia is resolved. 11/03/2018-patient's potassium level is 3.6 hypokalemia is resolved. - Time Time Spent with patient: 15-24 minutes Smoking Cessation Education: over 10 minutes Medications reviewed and adjusted accordingly: Yes Anticipated discharge: Home with Homehealth
[2018-11-03] MEDS ORDERED: MAG HYDROX/AL HYDROX/SIMETH SUSP 30 ML UDCUP PO ONE (15:00)
[2018-11-03] MEDS ORDERED: LIDOCAINE 2% VISCOUS SOLN 20 ML UDCUP PO ONE (15:00)
[2018-11-03] MEDS ORDERED: METOCLOPRAMIDE HCL ORAL SOLN 10 MG/10 ML UDCUP PO ONE (15:00)
--- NOTE | 2018-11-03 15:19 | RADIOLOGY REPORT (SQ) ---
EXAM DESCRIPTION: CT HEAD WITHOUT COMPLETED DATE/TIME: 11/03/2018 3:12 pm REASON FOR STUDY: headache A40.9 STREPTOCOCCAL SEPSIS, UNSPECIFIED A40.8 OTHER STREPTOCOCCAL SEPSI S D69.6 THROMBOCYTOPENIA, UNSPECIFIED COMPARISON: None. TECHNIQUE: Axial images acquired through the brain without intravenous contrast. Images reviewed wi th bone, brain and subdural windows. Additional sagittal and coronal reconstructions were generated. Images stored on PACS. All CT scanners at this facility use dose modulation, iterative reconstruction, and/or weight based d osing when appropriate to reduce radiation dose to as low as reasonably achievable (ALARA). [facility]: Dose Right [facility]: CareDose [facility]: Dose Right [facility]: Teradose 4D [facility]: [employer] RADIATION DOSE: CT Rad equipment meets quality standard of care and radiation dose reduction techniq ues were employed. CTDIvol: 48.6 mGy. DLP: 881 mGy-cm. mGy. LIMITATIONS: None. FINDINGS: VENTRICLES: Normal size and contour. CEREBRUM: No masses. No hemorrhage. No midline shift. No evidence for acute infarction. Normal gra y/white matter differentiation. No areas of low density in the white matter. CEREBELLUM: No masses. No hemorrhage. No alteration of density. No evidence for acute infarction. EXTRAAXIAL SPACES: No fluid collections. No masses. ORBITS AND GLOBE: No intra- or extraconal masses. Normal contour of globe without masses. CALVARIUM: No fracture. PARANASAL SINUSES: No fluid or mucosal thickening. SOFT TISSUES: No mass or hematoma. OTHER: No other significant finding. IMPRESSION: NORMAL BRAIN CT WITHOUT CONTRAST. EVIDENCE OF ACUTE STROKE: NO. COMMENT: Quality ID # [id number]: Final reports with documentation of one or more dose reduction techniques (e.g., Automated exposure control, adjustment of the mA and/or kV according to patient size, use of iterative reconstruction technique) TECHNICAL DOCUMENTATION: JOB ID: [id number] [employer]- All Rights Reserved Reading location - IP/workstation name: [email or web address]
[2018-11-03] MEDS ORDERED: PHARMACY COMMUNICATION ORDER MC ONE (17:45)
[2018-11-03 18:28] LABS: VANCOMYCIN,TROUGH 16.6 ug/mL (5.0-20.0)
[2018-11-03] MEDS: ACETAMINOPHEN 325 MG TABLET PO PRN (19:48)
[2018-11-04] MEDS: VANCOMYCIN HCL 1,250 MG in DEXTROSE 5%-WATER 250 ML IV SCH ×3 (02:37→22:36)
[2018-11-04] MEDS: HEPARIN SOD (PORCINE) 5,000 UNIT/ML 1 ML SYRINGE SUBCUT SCH ×3 (06:07→22:27)
[2018-11-04] MEDS: GABAPENTIN 400 MG CAPSULE PO SCH ×3 (06:07→22:26)
[2018-11-04] MEDS: OXYCODONE-ACETAMINOPHEN 5-325 MG TABLET PO PRN ×3 (08:06→20:44)
[2018-11-04] MEDS: OXYCODONE HCL IR 5 MG TABLET PO PRN ×3 (08:06→20:44)
[2018-11-04] MEDS: NICOTINE 21 MG/24 HR PATCH.TD24 TD SCH (09:34)
[2018-11-04] MEDS: LISINOPRIL 10 MG TABLET PO SCH (09:34)
[2018-11-04] MEDS: CEFTRIAXONE 2 GM/D5W RTU 2 GM/50 ML RTUPB IV SCH (09:35)
--- NOTE | 2018-11-04 13:12 | PDOC PROGRESS REPORT ---
Subjective Progress Note for:: 11/04/18 Subjective:: 43 year old male with a past medical history of polysubstance abuse, alcohol, tobacco dependent, chronic pain, depression suicide attempt by overdose. Patient is unable to provide history and subsequently history is obtained by the medical record of the emergency room provider. Patient was found disheveled, on the ground awake, alert and oriented x0, nonverbal moving all 4 extremities at home with empty bottles of Valium and oxycodone last seen normal by his power of assistant county attorney and sister 3 days ago. He is brought to the emergency room and received Narcan without significant response he remains awake and alert moving all 4 extremities and withdrawing from noxious stimuli. He has fever, leukocytosis no obvious source of infection, urine drug screen is positive for THC. He is referred to the hospitalist for admission. 10/28/[id number]-iaiv-old male admitted with altered mental status Narcan was given on the way to the hospital still in altered mental status his WBC count is 33,000+ and he has a fever of 101.5 this morning. Chest x-ray was negative for pneumonia. There is no obvious source of infection at this moment. Plan is to do the blood cultures urine culture and lumbar puncture. And started on IV Rocephin and IV Levaquin. Lactic acid initially 1 2.3 came down to 1.9 with IV fluids. Most likely he meets the criteria for SIRS. 11/01/2018: 43-year-old male admitted with altered mental status found to have a bacterial meningitis. He is showing significant recovery. Presently is on IV vancomycin and Zosyn. Comfortably in the bed communicating very well. 11/02/[id number]-jabc-old male admitted with altered mental status found to have a bacterial meningitis dexamethasone was discontinued yesterday he still on IV vancomycin and Zosyn. Plan is to continue the present management. pt is complaining of headaches other than that he is doing fine. No acute events in the last 24 hours. Patient is afebrile. Blood pressure is elevated this morning 170/104 he received hydralazine 10 mg IV as needed dose to start him on lisinopril 10 mg daily and to give 10 mg p.o. 1 dose today. 11/03/2018-no acute events in the last 24 hours. Patient is afebrile. Comfortably in the bed but complaining of heartburn requesting GI cocktail and also complaining of persistent headaches intensity is 4 x 5. He is going to arrange for the CT head without contrast and start on GI cocktail. Patient is preferred to go home with home health. 11/04/2018-no acute events in the last 24 hours. Patient is afebrile. Still complains of headaches. CT head was negative for acute changes. Reason For Visit: ALTERED MENTAL STATUS Physical Exam Vital Signs: Temp Pulse Resp BP Pulse Ox 98.9 F 71 16 123/72 95 11/04/18 11:11 11/04/18 11:11 11/04/18 07:21 11/04/18 11:11 11/04/18 11:11 Intake & Output 11/03/18 11/04/18 11/05/18 06:59 06:59 06:59 Intake Total 1351 2348 50 Output Total 1600 350 Balance -249 1997 50 Weight 55.4 kg 70.8 kg General appearance: PRESENT: no acute distress, thin Head exam: PRESENT: atraumatic Eye exam: PRESENT: PERRLA Neck exam: ABSENT: carotid bruit, JVD, lymphadenopathy, thyromegaly Respiratory exam: PRESENT: clear to auscultation nas. ABSENT: rales, rhonchi, wheezes Cardiovascular exam: PRESENT: RRR. ABSENT: diastolic murmur, rubs, systolic murmur GI/Abdominal exam: PRESENT: normal bowel sounds, soft. ABSENT: distended, guarding, mass, organolmegaly, rebound, tenderness Extremities exam: PRESENT: full ROM. ABSENT: calf tenderness, clubbing, pedal edema Neurological exam: PRESENT: alert, awake, oriented to person, oriented to place, oriented to time, oriented to situation, CN II-XII grossly intact. ABSENT: motor sensory deficit Psychiatric exam: PRESENT: appropriate affect, normal mood. ABSENT: homicidal ideation, suicidal ideation Results Laboratory Results: 11/03/18 06:07 11/03/18 06:07 10/29/18 11:13 Blood Blood Culture - Final NO GROWTH IN 5 DAYS 10/27/18 10/27/18 10/27/18 15:45 18:20 18:20 Creatine Kinase Cancelled 143 Troponin I < 0.012 10/28/18 05:55 Creatine Kinase 242 H Troponin I Impressions: Chest X-Ray 10/28/18 00:00 IMPRESSION: No acute cardiopulmonary findings. Guidance Fluoroscopy 10/28/18 00:00 IMPRESSION: Lumbar puncture under fluoroscopy. No immediate complication. Lumbar Puncture 10/28/18 00:00 IMPRESSION: Lumbar puncture under fluoroscopy. No immediate complication. Head CT 11/03/18 00:00 IMPRESSION: NORMAL BRAIN CT WITHOUT CONTRAST. EVIDENCE OF ACUTE STROKE: NO. Assessment and Plan - Diagnosis (1) Bacterial meningitis Is this a current diagnosis for this admission?: Yes Plan: 11/01/18 17:34 Patient is on IV vancomycin and ceftriaxone plan is to continue the present management. Dexamethasone is discontinued. Patient shows significant improvement in medical condition. 11/10/2018-the CSF cultures came back positive for strep pneumonia presently on IV vancomycin and ceftriaxone plan is to continue the present management. 11/03/2018-CSF culture is positive for strep pneumonia on vancomycin and ceftriaxone is going to complete 7 days of antibiotic therapy tomorrow. May be that he needs at least another 3 days of IV antibiotic therapy in my opinion. 11/04/2018-patient was admitted with bacterial meningitis causing altered mental status, presently on IV ceftriaxone 2 g every 12 hours and vancomycin 1250 mg every 8 hours. CSF culture shows strep pneumonia. Plan is to continue the antibiotic therapy for a duration of 10 days. Blood cultures from 10/29/2018 showed staph epidermidis probably contamination. And is afebrile T-max is 98.7 WBCs 9.1. (2) Acute encephalopathy Is this a current diagnosis for this admission?: Yes Plan: 11/01/18 17:32 Acute encephalopathy/altered mental status secondary to bacterial meningitis is resolved. 11/02/2018 acute encephalopathy/altered mental status due to bacterial meningitis is resolved. Patient is alert and awake communicating very well. no Focal neurological deficits. 11/03/2018-patient was admitted with altered mental status/acute encephalopathy found to have a bacterial meningitis which was resolving. [place] on ceftriaxone and IV vancomycin. And is to continue the antibiotics for at least another day. T-max is 98.5. 11/04/2018-acute encephalopathy/altered mental status most likely secondary to bacterial meningitis. Acute encephalopathy is resolved. Patient is alert awake oriented communicating very well. (3) Leukocytosis Qualifiers: Leukocytosis type: unspecified Qualified Code(s): D72.829 - Elevated white blood cell count, unspecified Is this a current diagnosis for this admission?: Yes Plan: 11/01/18 17:33 Leukocytosis secondary to bacterial meningitis is resolved. Presently is on IV vancomycin and ceftrioxone 11/02/2018-leukocytosis secondary to bacterial meningitis resolved. Patient is presently on IV vancomycin and reocephin plan to continue the present management. WBC count today is 8500. 11/03/2018--leukocytosis secondary to bacterial meningitis resolved. Latest WBC count is 9100. Patient is presently on reocephin and vancomycin. Plan is to continue antibiotics for at least 3 more day. 11/04/2018 leukocytosis secondary to bacterial meningitis resolved. (4) Elevated lactic acid level Is this a current diagnosis for this admission?: Yes Plan: 11/01/18 17:33 11/01/2018-elevated lactic acid secondary to sepsis is resolved. 11/02/2018-patient came in with sepsis and bacterial meningitis initial lactic acid is elevated and subsequently shows downward trend. 11/03/2018-patient came in with initially with elevated lactic acid levels due to bacterial meningitis the condition is resolved now. (5) Tobacco abuse Is this a current diagnosis for this admission?: Yes (6) Hyponatremia Is this a current diagnosis for this admission?: Yes Plan: 11/01/18 17:33 11/01/2018 serum sodium level is 139 hyponatremia is resolved. 11/02/2018-patient's serum sodium level today is 133.5 hyponatremia probably secondary to poor oral intake. Plan is to continue to closely follow the patient check the daily labs on regular basis. 11/03/2018 hyponatremia secondary to poor oral intake and sepsis is resolved. Serum sodium level is 135 today. (7) Hypokalemia Is this a current diagnosis for this admission?: Yes Plan: 11/01/18 17:33 Potassium level today 3.6 hyponatremia is resolved. 11/02/2018-latest potassium level is 4.2 hypokalemia is resolved. 11/03/2018-patient's potassium level is 3.6 hypokalemia is resolved.
[2018-11-05] MEDS: OXYCODONE HCL IR 5 MG TABLET PO PRN ×4 (02:48→22:15)
[2018-11-05] MEDS: OXYCODONE-ACETAMINOPHEN 5-325 MG TABLET PO PRN ×4 (02:48→22:16)
[2018-11-05 05:46] LABS: ABSOLUTE BASOPHILS # (AUTO) 0.1 10^3/uL (0.0-0.2); ABSOLUTE EOSINOPHILS # (AUTO) 0.4 10^3/uL (0.0-0.6); ABSOLUTE LYMPHOCYTES (AUTO) 2.4 10^3/uL (0.5-4.7); ABSOLUTE MONOCYTES (AUTO) 0.8 10^3/uL (0.1-1.4); BASOPHILS % (AUTO) 0.8 % (0-2); EOSINOPHILS % (AUTO) 3.9 % (0-6); HEMATOCRIT 37.6 % (37.9-51.0); HEMOGLOBIN 12.7 g/dL (13.5-17.0); LYMPHOCYTES % (AUTO) 22.3 % (13-45); MEAN CORPUSCULAR HEMOGLOBIN 29.7 pg (27.0-33.4); MEAN CORPUSCULAR HGB CONC 33.8 g/dL (32.0-36.0); MEAN CORPUSCULAR VOLUME 88 fl (80-97); MONOCYTES % (AUTO) 7.9 % (3-13); PLATELET COUNT 345 10^3/uL (150-450); RED BLOOD COUNT 4.28 10^6/uL (4.35-5.55); RED CELL DISTRIBUTION WIDTH 15.7 % (11.5-14.0); SEGMENTED NEUTROPHILS % (AUTO) 65.1 % (42-78); TOTAL CELLS COUNTED % (AUTO) 100 %; WHITE BLOOD COUNT 10.7 10^3/uL (4.0-10.5)
[2018-11-05 06:09] LABS: ALANINE AMINOTRANSFERASE 34 U/L (21-72); ALBUMIN 2.7 g/dL (3.5-5.0); ALKALINE PHOSPHATASE 66 U/L (38-126); ANION GAP 6 (5-19); ASPARTATE AMINO TRANSFERASE 15 U/L (17-59); BILIRUBIN,DIRECT 0.3 mg/dL (0.0-0.4); BILIRUBIN,TOTAL 0.5 mg/dL (0.2-1.3); BLOOD UREA NITROGEN 14 mg/dL (7-20); CALCIUM 8.4 mg/dL (8.4-10.2); CARBON DIOXIDE 26 mmol/L (22-30); CHLORIDE 102 mmol/L (98-107); GLUCOSE 101 mg/dL (75-110); POTASSIUM 4.2 mmol/L (3.6-5.0); SODIUM 134.1 mmol/L (137-145); TOTAL PROTEIN 5.2 g/dL (6.3-8.2)
[2018-11-05] MEDS: HEPARIN SOD (PORCINE) 5,000 UNIT/ML 1 ML SYRINGE SUBCUT SCH ×3 (06:23→22:15)
[2018-11-05] MEDS: VANCOMYCIN HCL 1,250 MG in DEXTROSE 5%-WATER 250 ML IV SCH ×3 (06:24→22:15)
[2018-11-05] MEDS: GABAPENTIN 400 MG CAPSULE PO SCH ×3 (06:24→22:15)
[2018-11-05] MEDS: NICOTINE 21 MG/24 HR PATCH.TD24 TD SCH (09:44)
[2018-11-05] MEDS: LISINOPRIL 10 MG TABLET PO SCH (09:44)
[2018-11-06] MEDS: OXYCODONE HCL IR 5 MG TABLET PO PRN ×4 (04:21→22:48)
[2018-11-06] MEDS: OXYCODONE-ACETAMINOPHEN 5-325 MG TABLET PO PRN ×4 (04:21→22:47)
[2018-11-06] MEDS: GABAPENTIN 400 MG CAPSULE PO SCH ×3 (06:46→22:48)
[2018-11-06] MEDS: HEPARIN SOD (PORCINE) 5,000 UNIT/ML 1 ML SYRINGE SUBCUT SCH ×3 (06:46→22:47)
[2018-11-06] MEDS: VANCOMYCIN HCL 1,250 MG in DEXTROSE 5%-WATER 250 ML IV SCH (06:47)
[2018-11-06] MEDS: LISINOPRIL 10 MG TABLET PO SCH (10:21)
[2018-11-06] MEDS: NICOTINE 21 MG/24 HR PATCH.TD24 TD SCH (10:21)
--- NOTE | 2018-11-06 12:06 | PDOC PROGRESS REPORT ---
Subjective Progress Note for:: 11/06/18 Subjective:: 43 year old male with a past medical history of polysubstance abuse, alcohol, tobacco dependent, chronic pain, depression suicide attempt by overdose. Patient is unable to provide history and subsequently history is obtained by the medical record of the emergency room provider. Patient was found disheveled, on the ground awake, alert and oriented x0, nonverbal moving all 4 extremities at home with empty bottles of Valium and oxycodone last seen normal by his power of assistant city attorney and sister 3 days ago. He is brought to the emergency room and received Narcan without significant response he remains awake and alert moving all 4 extremities and withdrawing from noxious stimuli. He has fever, leukocytosis no obvious source of infection, urine drug screen is positive for THC. He is referred to the hospitalist for admission. 10/28/[id number]-mupu-old male admitted with altered mental status Narcan was given on the way to the hospital still in altered mental status his WBC count is 33,000+ and he has a fever of 101.5 this morning. Chest x-ray was negative for pneumonia. There is no obvious source of infection at this moment. Plan is to do the blood cultures urine culture and lumbar puncture. And started on IV Rocephin and IV Levaquin. Lactic acid initially 1 2.3 came down to 1.9 with IV fluids. Most likely he meets the criteria for SIRS. 11/01/2018: 43-year-old male admitted with altered mental status found to have a bacterial meningitis. He is showing significant recovery. Presently is on IV vancomycin and Zosyn. Comfortably in the bed communicating very well. 11/02/[id number]-egbk-old male admitted with altered mental status found to have a bacterial meningitis dexamethasone was discontinued yesterday he still on IV vancomycin and Zosyn. Plan is to continue the present management. pt is complaining of headaches other than that he is doing fine. No acute events in the last 24 hours. Patient is afebrile. Blood pressure is elevated this morning 170/104 he received hydralazine 10 mg IV as needed dose to start him on lisinopril 10 mg daily and to give 10 mg p.o. 1 dose today. 11/03/2018-no acute events in the last 24 hours. Patient is afebrile. Comfortably in the bed but complaining of heartburn requesting GI cocktail and also complaining of persistent headaches intensity is 4 x 5. He is going to arrange for the CT head without contrast and start on GI cocktail. Patient is preferred to go home with home health. 11/04/2018-no acute events in the last 24 hours. Patient is afebrile. Still complains of headaches. CT head was negative for acute changes. 11/06/2018-no acute events in the last 24 hours. Patient is afebrile. No complaints of headache. CT head was negative for acute changes. Offered and bili in the bed expressing desire to go home. Reason For Visit: ALTERED MENTAL STATUS Physical Exam Vital Signs: Temp Pulse Resp BP Pulse Ox 97.7 F 74 16 136/79 H 97 11/06/18 08:43 11/06/18 08:43 11/06/18 08:00 11/06/18 08:43 11/06/18 08:43 Intake & Output 11/05/18 11/06/18 11/07/18 06:59 06:59 06:59 Intake Total 1467 1431 250 Balance 1467 1431 250 Weight 70.8 kg 71 kg General appearance: PRESENT: no acute distress Head exam: PRESENT: atraumatic Eye exam: PRESENT: PERRLA Mouth exam: PRESENT: moist, tongue midline Neck exam: ABSENT: carotid bruit, JVD, lymphadenopathy, thyromegaly Respiratory exam: PRESENT: clear to auscultation nas. ABSENT: rales, rhonchi, wheezes Cardiovascular exam: PRESENT: RRR. ABSENT: diastolic murmur, rubs, systolic murmur GI/Abdominal exam: PRESENT: normal bowel sounds, soft. ABSENT: distended, guarding, mass, organolmegaly, rebound, tenderness Extremities exam: PRESENT: full ROM. ABSENT: calf tenderness, clubbing, pedal edema Neurological exam: PRESENT: alert, awake, oriented to person, oriented to place, oriented to time, oriented to situation, CN II-XII grossly intact. ABSENT: m otor sensory deficit Psychiatric exam: PRESENT: appropriate affect, normal mood. ABSENT: homicidal ideation, suicidal ideation Results Laboratory Results: 11/05/18 05:23 11/05/18 05:23 10/27/18 10/27/18 10/27/18 15:45 18:20 18:20 Creatine Kinase Cancelled 143 Troponin I < 0.012 10/28/18 05:55 Creatine Kinase 242 H Troponin I Impressions: Chest X-Ray 10/28/18 00:00 IMPRESSION: No acute cardiopulmonary findings. Guidance Fluoroscopy 10/28/18 00:00 IMPRESSION: Lumbar puncture under fluoroscopy. No immediate complication. Lumbar Puncture 10/28/18 00:00 IMPRESSION: Lumbar puncture under fluoroscopy. No immediate complication. Head CT 11/03/18 00:00 IMPRESSION: NORMAL BRAIN CT WITHOUT CONTRAST. EVIDENCE OF ACUTE STROKE: NO. Assessment and Plan - Diagnosis (1) Bacterial meningitis Is this a current diagnosis for this admission?: Yes Plan: 11/01/18 17:34 Patient is on IV vancomycin and ceftriaxone plan is to continue the present management. Dexamethasone is discontinued. Patient shows significant improvement in medical condition. 11/10/2018-the CSF cultures came back positive for strep pneumonia presently on IV vancomycin and ceftriaxone plan is to continue the present management. 11/03/2018-CSF culture is positive for strep pneumonia on vancomycin and ceftriaxone is going to complete 7 days of antibiotic therapy tomorrow. May be that he needs at least another 3 days of IV antibiotic therapy in my opinion. 11/04/2018-patient was admitted with bacterial meningitis causing altered mental status, presently on IV ceftriaxone 2 g every 12 hours and vancomycin 1250 mg every 8 hours. CSF culture shows strep pneumonia. Plan is to continue the antibiotic therapy for a duration of 10 days. Blood cultures from 10/29/2018 showed staph epidermidis probably contamination. And is afebrile T-max is 98.7 WBCs 9.1. 11/06/2018-patient was admitted with bacterial meningitis and altered mental status. CSF culture positive for strep pneumonia. He completed 10 days of course of antibiotic therapy. Afebrile for the last several days. Alert and awake communicating very well. Plan is to discontinue antibiotics from today. (2) Acute encephalopathy Is this a current diagnosis for this admission?: Yes Plan: 11/01/18 17:32 Acute encephalopathy/altered mental status secondary to bacterial meningitis is resolved. 11/02/2018 acute encephalopathy/altered mental status due to bacterial meningitis is resolved. Patient is alert and awake communicating very well. no Focal neurological deficits. 11/03/2018-patient was admitted with altered mental status/acute encephalopathy found to have a bacterial meningitis which was resolving. [place] on ceftriaxone and IV vancomycin. And is to continue the antibiotics for at least another day. T-max is 98.5. 11/04/2018-acute encephalopathy/altered mental status most likely secondary to bacterial meningitis. Acute encephalopathy is resolved. Patient is alert awake oriented communicating very well. 11/06/2018-acute encephalopathy/altered mental status most likely secondary to bacterial meningitis resolved. (3) Leukocytosis Qualifiers: Leukocytosis type: unspecified Qualified Code(s): D72.829 - Elevated white blood cell count, unspecified Is this a current diagnosis for this admission?: Yes Plan: 11/01/18 17:33 Leukocytosis secondary to bacterial meningitis is resolved. Presently is on IV vancomycin and ceftrioxone 11/02/2018-leukocytosis secondary to bacterial meningitis resolved. Patient is presently on IV vancomycin and reocephin plan to continue the present management. WBC count today is 8500. 11/03/2018--leukocytosis secondary to bacterial meningitis resolved. Latest WBC count is 9100. Patient is presently on reocephin and vancomycin. Plan is to continue antibiotics for at least 3 more day. 11/04/2018 leukocytosis secondary to bacterial meningitis resolved. 11/06/2018-leukocytosis secondary to bacterial meningitis resolved. (4) Elevated lactic acid level Is this a current diagnosis for this admission?: Yes Plan: 11/01/18 17:33 11/01/2018-elevated lactic acid secondary to sepsis is resolved. 11/02/2018-patient came in with sepsis and bacterial meningitis initial lactic acid is elevated and subsequently shows downward trend. 11/03/2018-patient came in with initially with elevated lactic acid levels due to bacterial meningitis the condition is resolved now. 11/06/2018 patient came in initially with elevated lactic acid levels follow-up the lactic acid levels came back to normal. (5) Tobacco abuse Is this a current diagnosis for this admission?: Yes Plan: 11/03/2018-patient is a chronic smoker smokes, smokes more than 1 pack/day plan to put him on nicotine patch 21 mg daily. 10/09/2018-patient is a chronic smoker smokes more than 1 pack/day. He was a nicotine patch 21 mg daily. Smoking counseling was provided for more than 10 minutes. strongly advised to quit smoking. (6) Hyponatremia Is this a current diagnosis for this admission?: Yes Plan: 11/01/18 17:33 11/01/2018 serum sodium level is 139 hyponatremia is resolved. 11/02/2018-patient's serum sodium level today is 133.5 hyponatremia probably secondary to poor oral intake. Plan is to continue to closely follow the patient check the daily labs on regular basis. 11/03/2018 hyponatremia secondary to poor oral intake and sepsis is resolved. Serum sodium level is 135 today. 11/06/2018-patient serum potassium is 134 close to normal hyponatremia most likely secondary to poor oral intake is resolving. (7) Hypokalemia Is this a current diagnosis for this admission?: Yes Plan: 11/01/18 17:33 Potassium level today 3.6 hyponatremia is resolved. 11/02/2018-latest potassium level is 4.2 hypokalemia is resolved. 11/03/2018-patient's potassium level is 3.6 hypokalemia is resolved. 11/06/2018-patient's potassium level is 4.2 hypokalemia is resolved. - Time Time Spent with patient: 15-24 minutes Medications reviewed and adjusted accordingly: Yes Anticipated discharge: Home, Home with Homehealth
--- NOTE | 2018-11-06 12:09 | PDOC PROGRESS REPORT ---
Subjective Progress Note for:: 11/05/18 Subjective:: 43 year old male with a past medical history of polysubstance abuse, alcohol, tobacco dependent, chronic pain, depression suicide attempt by overdose. Patient is unable to provide history and subsequently history is obtained by the medical record of the emergency room provider. Patient was found disheveled, on the ground awake, alert and oriented x0, nonverbal moving all 4 extremities at home with empty bottles of Valium and oxycodone last seen normal by his power of criminal defense attorney and sister 3 days ago. He is brought to the emergency room and received Narcan without significant response he remains awake and alert moving all 4 extremities and withdrawing from noxious stimuli. He has fever, leukocytosis no obvious source of infection, urine drug screen is positive for THC. He is referred to the hospitalist for admission. 10/28/[id number]-anri-old male admitted with altered mental status Narcan was given on the way to the hospital still in altered mental status his WBC count is 33,000+ and he has a fever of 101.5 this morning. Chest x-ray was negative for pneumonia. There is no obvious source of infection at this moment. Plan is to do the blood cultures urine culture and lumbar puncture. And started on IV Rocephin and IV Levaquin. Lactic acid initially 1 2.3 came down to 1.9 with IV fluids. Most likely he meets the criteria for SIRS. 11/01/2018: 43-year-old male admitted with altered mental status found to have a bacterial meningitis. He is showing significant recovery. Presently is on IV vancomycin and Zosyn. Comfortably in the bed communicating very well. 11/02/[id number]-tbtj-old male admitted with altered mental status found to have a bacterial meningitis dexamethasone was discontinued yesterday he still on IV vancomycin and Zosyn. Plan is to continue the present management. pt is complaining of headaches other than that he is doing fine. No acute events in the last 24 hours. Patient is afebrile. Blood pressure is elevated this morning 170/104 he received hydralazine 10 mg IV as needed dose to start him on lisinopril 10 mg daily and to give 10 mg p.o. 1 dose today. 11/03/2018-no acute events in the last 24 hours. Patient is afebrile. Comfortably in the bed but complaining of heartburn requesting GI cocktail and also complaining of persistent headaches intensity is 4 x 5. He is going to arrange for the CT head without contrast and start on GI cocktail. Patient is preferred to go home with home health. 11/04/2018-no acute events in the last 24 hours. Patient is afebrile. Still complains of headaches. CT head was negative for acute changes. 11/05/2018-no acute events in the last 24 hours. Patient is afebrile. Comfortably in the bed communicating very well. Reason For Visit: ALTERED MENTAL STATUS Physical Exam Vital Signs: Temp Pulse Resp BP Pulse Ox 97.7 F 74 16 136/79 H 97 11/06/18 08:43 11/06/18 08:43 11/06/18 08:00 11/06/18 08:43 11/06/18 08:43 Intake & Output 11/05/18 11/06/18 11/07/18 06:59 06:59 06:59 Intake Total 1467 1431 250 Balance 1467 1431 250 Weight 70.8 kg 71 kg General appearance: PRESENT: no acute distress Head exam: PRESENT: atraumatic Eye exam: PRESENT: PERRLA Mouth exam: PRESENT: moist, tongue midline Neck exam: ABSENT: carotid bruit, JVD, lymphadenopathy, thyromegaly Cardiovascular exam: PRESENT: RRR. ABSENT: diastolic murmur, rubs, systolic murmur Pulses: PRESENT: normal dorsalis pedis pul GI/Abdominal exam: PRESENT: normal bowel sounds, soft. ABSENT: distended, guarding, mass, organolmegaly, rebound, tenderness Extremities exam: PRESENT: full ROM. ABSENT: calf tenderness, clubbing, pedal edema Neurological exam: PRESENT: alert, awake, oriented to person, oriented to place, oriented to time, oriented to situation, CN II-XII grossly intact. ABSENT: motor sensory deficit Psychiatric exam: PRESENT: appropriate affect, normal mood. ABSENT: homicidal ideation, suicidal ideation Results Laboratory Results: 11/05/18 05:23 11/05/18 05:23 10/27/18 10/27/18 10/27/18 15:45 18:20 18:20 Creatine Kinase Cancelled 143 Troponin I < 0.012 10/28/18 05:55 Creatine Kinase 242 H Troponin I Impressions: Chest X-Ray 10/28/18 00:00 IMPRESSION: No acute cardiopulmonary findings. Guidance Fluoroscopy 10/28/18 00:00 IMPRESSION: Lumbar puncture under fluoroscopy. No immediate complication. Lumbar Puncture 10/28/18 00:00 IMPRESSION: Lumbar puncture under fluoroscopy. No immediate complication. Head CT 11/03/18 00:00 IMPRESSION: NORMAL BRAIN CT WITHOUT CONTRAST. EVIDENCE OF ACUTE STROKE: NO. Assessment and Plan - Diagnosis (1) Bacterial meningitis Is this a current diagnosis for this admission?: Yes Plan: 11/01/18 17:34 Patient is on IV vancomycin and ceftriaxone plan is to continue the present management. Dexamethasone is discontinued. Patient shows significant improvement in medical condition. 11/10/2018-the CSF cultures came back positive for strep pneumonia presently on IV vancomycin and ceftriaxone plan is to continue the present management. 11/03/2018-CSF culture is positive for strep pneumonia on vancomycin and ceftriaxone is going to complete 7 days of antibiotic therapy tomorrow. May be that he needs at least another 3 days of IV antibiotic therapy in my opinion. 11/04/2018-patient was admitted with bacterial meningitis causing altered mental status, presently on IV ceftriaxone 2 g every 12 hours and vancomycin 1250 mg every 8 hours. CSF culture shows strep pneumonia. Plan is to continue the antibiotic therapy for a duration of 10 days. Blood cultures from 10/29/2018 showed staph epidermidis probably contamination. And is afebrile T-max is 98.7 WBCs 9.1. 11/05/2018-patient was admitted with bacterial meningitis on IV ceftriaxone 2 g every 12 hours and IV vancomycin 1250 mg every 8 hours. Patient is afebrile. CSF culture shows strep pneumonia. Plan is to continue the antibiotics for today. (2) Acute encephalopathy Is this a current diagnosis for this admission?: Yes Plan: 11/01/18 17:32 Acute encephalopathy/altered mental status secondary to bacterial meningitis is resolved. 11/02/2018 acute encephalopathy/altered mental status due to bacterial meningitis is resolved. Patient is alert and awake communicating very well. no Focal neur ological deficits. 11/03/2018-patient was admitted with altered mental status/acute encephalopathy f ound to have a bacterial meningitis which was resolving. [place] on ceftriaxone and IV vancomycin. And is to continue the antibiotics for at least another day. T-max is 98.5. 11/04/2018-acute encephalopathy/altered mental status most likely secondary to bacterial meningitis. Acute encephalopathy is resolved. Patient is alert awake oriented communicating very well. 11/05/2018-patient is alert and awake oriented communicating very well. He is expressing desire to go home with home health. Altered mental status is resolved. (3) Leukocytosis Qualifiers: Leukocytosis type: unspecified Qualified Code(s): D72.829 - Elevated white blood cell count, unspecified Is this a current diagnosis for this admission?: Yes Plan: 11/01/18 17:33 Leukocytosis secondary to bacterial meningitis is resolved. Presently is on IV vancomycin and ceftrioxone 11/02/2018-leukocytosis secondary to bacterial meningitis resolved. Patient is presently on IV vancomycin and reocephin plan to continue the present management. WBC count today is 8500. 11/03/2018--leukocytosis secondary to bacterial meningitis resolved. Latest WBC count is 9100. Patient is presently on reocephin and vancomycin. Plan is to continue antibiotics for at least 3 more day. 11/04/2018 leukocytosis secondary to bacterial meningitis resolved. 11/05/2018-patient is admitted with elevated white cell count with antibiotics leukocytosis is resolved. (4) Elevated lactic acid level Is this a current diagnosis for this admission?: Yes Plan: 11/01/18 17:33 11/01/2018-elevated lactic acid secondary to sepsis is resolved. 11/02/2018-patient came in with sepsis and bacterial meningitis initial lactic acid is elevated and subsequently shows downward trend. 11/03/2018-patient came in with initially with elevated lactic acid levels due to bacterial meningitis the condition is resolved now. 04/07/2019-patient initially came with elevated calcium levels due to bacterial meningitis subsequent/follow-up lactic acid levels come back to normal. (5) Tobacco abuse Is this a current diagnosis for this admission?: Yes (6) Hyponatremia Is this a current diagnosis for this admission?: Yes (7) Hypokalemia Is this a current diagnosis for this admission?: Yes - Time Time Spent with patient: 15-24 minutes Smoking Cessation Education: over 10 minutes Medications reviewed and adjusted accordingly: Yes Anticipated discharge: Home with Homehealth
[2018-11-07] MEDS: OXYCODONE HCL IR 5 MG TABLET PO PRN ×3 (05:52→19:10)
[2018-11-07] MEDS: OXYCODONE-ACETAMINOPHEN 5-325 MG TABLET PO PRN ×3 (05:52→19:10)
[2018-11-07] MEDS: GABAPENTIN 400 MG CAPSULE PO SCH ×3 (05:52→21:51)
[2018-11-07] MEDS: HEPARIN SOD (PORCINE) 5,000 UNIT/ML 1 ML SYRINGE SUBCUT SCH ×3 (05:53→21:50)
[2018-11-07] MEDS: NICOTINE 21 MG/24 HR PATCH.TD24 TD SCH (10:47)
[2018-11-07] MEDS: LISINOPRIL 10 MG TABLET PO SCH (10:47)
--- NOTE | 2018-11-07 13:37 | PDOC PROGRESS REPORT ---
Subjective Progress Note for:: 11/07/18 Subjective:: 43 year old male with a past medical history of polysubstance abuse, alcohol, tobacco dependent, chronic pain, depression suicide attempt by overdose. Patient is unable to provide history and subsequently history is obtained by the medical record of the emergency room provider. Patient was found disheveled, on the ground awake, alert and oriented x0, nonverbal moving all 4 extremities at home with empty bottles of Valium and oxycodone last seen normal by his power of district attorney and sister 3 days ago. He is brought to the emergency room and received Narcan without significant response he remains awake and alert moving all 4 extremities and withdrawing from noxious stimuli. He has fever, leukocytosis no obvious source of infection, urine drug screen is positive for THC. He is referred to the hospitalist for admission. 10/28/[id number]-old male admitted with altered mental status Narcan was given on the way to the hospital still in altered mental status his WBC count is 33,000+ and he has a fever of 101.5 this morning. Chest x-ray was negative for pneumonia. There is no obvious source of infection at this moment. Plan is to do the blood cultures urine culture and lumbar puncture. And started on IV Rocephin and IV Levaquin. Lactic acid initially 1 2.3 came down to 1.9 with IV fluids. Most likely he meets the criteria for SIRS. 11/01/2018: 43-year-old male admitted with altered mental status found to have a bacterial meningitis. He is showing significant recovery. Presently is on IV vancomycin and Zosyn. Comfortably in the bed communicating very well. 11/02/[id number]-mtjo-old male admitted with altered mental status found to have a bacterial meningitis dexamethasone was discontinued yesterday he still on IV vancomycin and Zosyn. Plan is to continue the present management. pt is complaining of headaches other than that he is doing fine. No acute events in the last 24 hours. Patient is afebrile. Blood pressure is elevated this morning 170/104 he received hydralazine 10 mg IV as needed dose to start him on lisinopril 10 mg daily and to give 10 mg p.o. 1 dose today. 11/03/2018-no acute events in the last 24 hours. Patient is afebrile. Comfortably in the bed but complaining of heartburn requesting GI cocktail and also complaining of persistent headaches intensity is 4 x 5. He is going to arrange for the CT head without contrast and start on GI cocktail. Patient is preferred to go home with home health. 11/04/2018-no acute events in the last 24 hours. Patient is afebrile. Still complains of headaches. CT head was negative for acute changes. 11/05/2018-no acute events in the last 24 hours. Patient is afebrile. Comfortably in the bed communicating very well. 11/07/2018 no acute events in the last 24 hours. Patient is afebrile. Comfortably in bed in the bed communicating very well. Denies any complaints. Reason For Visit: ALTERED MENTAL STATUS Physical Exam Vital Signs: Temp Pulse Resp BP Pulse Ox 98.2 F 72 16 116/72 96 11/07/18 12:03 11/07/18 12:03 11/07/18 12:03 11/07/18 12:03 11/07/18 12:03 Intake & Output 11/06/18 11/07/18 11/08/18 06:59 06:59 06:59 Intake Total 1431 1370 Balance 1431 1370 Weight 71 kg 70.9 kg General appearance: PRESENT: no acute distress Head exam: PRESENT: atraumatic Eye exam: PRESENT: PERRLA Mouth exam: PRESENT: dry mucosa Neck exam: ABSENT: carotid bruit, JVD, lymphadenopathy, thyromegaly Respiratory exam: PRESENT: clear to auscultation nas. ABSENT: rales, rhonchi, wheezes Cardiovascular exam: PRESENT: RRR. ABSENT: diastolic murmur, rubs, systolic murmur GI/Abdominal exam: PRESENT: normal bowel sounds, soft. ABSENT: distended, guarding, mass, organolmegaly, rebound, tenderness Extremities exam: PRESENT: full ROM. ABSENT: calf tenderness, clubbing, pedal edema Neurological exam: PRESENT: alert, awake, oriented to person, oriented to place, oriented to time, oriented to situation, CN II-XII grossly intact. ABSENT: motor sensory deficit Psychiatric exam: PRESENT: appropriate affect, normal mood. ABSENT: homicidal ideation, suicidal ideation Results Laboratory Results: 11/05/18 05:23 11/05/18 05:23 10/27/18 10/27/18 10/27/18 15:45 18:20 18:20 Creatine Kinase Cancelled 143 Troponin I < 0.012 10/28/18 05:55 Creatine Kinase 242 H Troponin I Impressions: Chest X-Ray 10/28/18 00:00 IMPRESSION: No acute cardiopulmonary findings. Guidance Fluoroscopy 10/28/18 00:00 IMPRESSION: Lumbar puncture under fluoroscopy. No immediate complication. Lumbar Puncture 10/28/18 00:00 IMPRESSION: Lumbar puncture under fluoroscopy. No immediate complication. Head CT 11/03/18 00:00 IMPRESSION: NORMAL BRAIN CT WITHOUT CONTRAST. EVIDENCE OF ACUTE STROKE: NO. Assessment and Plan - Diagnosis (1) Bacterial meningitis Is this a current diagnosis for this admission?: Yes Plan: 11/01/18 17:34 Patient is on IV vancomycin and ceftriaxone plan is to continue the present management. Dexamethasone is discontinued. Patient shows significant improv ement in medical condition. 11/10/2018-the CSF cultures came back positive for strep pneumonia presently on IV vancomycin and ceftriaxone plan is to continue the present management. 11/03/2018-CSF culture is positive for strep pneumonia on vancomycin and ceftriaxone is going to complete 7 days of antibiotic therapy tomorrow. May be that he needs at least another 3 days of IV antibiotic therapy in my opinion. 11/04/2018-patient was admitted with bacterial meningitis causing altered mental status, presently on IV ceftriaxone 2 g every 12 hours and vancomycin 1250 mg every 8 hours. CSF culture shows strep pneumonia. Plan is to continue the antibiotic therapy for a duration of 10 days. Blood cultures from 10/29/2018 showed staph epidermidis probably contamination. And is afebrile T-max is 98.7 WBCs 9.1. 11/05/2018-patient was admitted with bacterial meningitis on IV ceftriaxone 2 g every 12 hours and IV vancomycin 1250 mg every 8 hours. Patient is afebrile. CSF culture shows strep pneumonia. Plan is to discontinue the antibiotics for today. 11/06/2018-patient was admitted with bacterial meningitis treated with IV ceftriaxone and IV vancomycin after 10 days of IV antibiotic therapy antibiotics are discontinued yesterday. Patient is still afebrile. Asymptomatic. Plan is to observe him for at least another day and probably discharge home tomorrow. (2) Acute encephalopathy Is this a current diagnosis for this admission?: Yes Plan: 11/01/18 17:32 Acute encephalopathy/altered mental status secondary to bacterial meningitis is resolved. 11/02/2018 acute encephalopathy/altered mental status due to bacterial meningitis is resolved. Patient is alert and awake communicating very well. no Focal neurological deficits. 11/03/2018-patient was admitted with altered mental status/acute encephalopathy found to have a bacterial meningitis which was resolving. [place] on ceftriaxone and IV vancomycin. And is to continue the antibiotics for at least another day. T-max is 98.5. 11/04/2018-acute encephalopathy/altered mental status most likely secondary to bacterial meningitis. Acute encephalopathy is resolved. Patient is alert awake oriented communicating very well. 11/05/2018-patient is alert and awake oriented communicating very well. He is expressing desire to go home with home health. Altered mental status is resolved. 11/06/2018-patient was admitted with acute encephalopathy/altered mental status due to bacterial meningitis which was resolved. Patient is alert and awake oriented communicating very well. (3) Leukocytosis Qualifiers: Leukocytosis type: unspecified Qualified Code(s): D72.829 - Elevated white blood cell count, unspecified Is this a current diagnosis for this admission?: Yes Plan: 11/01/18 17:33 Leukocytosis secondary to bacterial meningitis is resolved. Presently is on IV vancomycin and ceftrioxone 11/02/2018-leukocytosis secondary to bacterial meningitis resolved. Patient is presently on IV vancomycin and reocephin plan to continue the present management. WBC count today is 8500. 11/03/2018--leukocytosis secondary to bacterial meningitis resolved. Latest WBC count is 9100. Patient is presently on reocephin and vancomycin. Plan is to continue antibiotics for at least 3 more day. 11/04/2018 leukocytosis secondary to bacterial meningitis resolved. 11/05/2018-patient is admitted with elevated white cell count with antibiotics leukocytosis is resolved. 11/06/2018-patient was admitted with elevated WBC count and the leukocytosis most likely secondary to bacterial meningitis which was resolved. (4) Elevated lactic acid level Is this a current diagnosis for this admission?: Yes (5) Tobacco abuse Is this a current diagnosis for this admission?: Yes (6) Hyponatremia Is this a current diagnosis for this admission?: Yes Plan: 11/01/18 17:33 11/01/2018 serum sodium level is 139 hyponatremia is resolved. 11/02/2018-patient's serum sodium level today is 133.5 hyponatremia probably secondary to poor oral intake. Plan is to continue to closely follow the patient check the daily labs on regular basis. 11/03/2018 hyponatremia secondary to poor oral intake and sepsis is resolved. Serum sodium level is 135 today. 11/06/2018-patient serum potassium is 3.4 close to normal hyponatremia most likely secondary to poor oral intake is resolving. 11/07/2018-serum potassium level is 134.1. Hyponatremia most likely secondary to poor oral intake. (7) Hypokalemia Is this a current diagnosis for this admission?: Yes Plan: 11/01/18 17:33 Potassium level today 3.6 hyponatremia is resolved. 11/02/2018-latest potassium level is 4.2 hypokalemia is resolved. 11/03/2018-patient's potassium level is 3.6 hypokalemia is resolved. 11/06/2018-patient's potassium level is 4.2 hypokalemia is resolved. 11/07/2018 patient serum potassium level is 4.2 hypokalemia resolved. - Time Time Spent with patient: 15-24 minutes Medications reviewed and adjusted accordingly: Yes Anticipated discharge: Home with Homehealth
[2018-11-08] MEDS: OXYCODONE HCL IR 5 MG TABLET PO PRN ×2 (01:50→09:36)
[2018-11-08] MEDS: OXYCODONE-ACETAMINOPHEN 5-325 MG TABLET PO PRN ×2 (01:50→09:35)
[2018-11-08] MEDS: GABAPENTIN 400 MG CAPSULE PO SCH ×3 (06:06→21:11)
[2018-11-08] MEDS: HEPARIN SOD (PORCINE) 5,000 UNIT/ML 1 ML SYRINGE SUBCUT SCH ×3 (06:06→21:10)
[2018-11-08] MEDS: LISINOPRIL 10 MG TABLET PO SCH (09:36)
[2018-11-08] MEDS: NICOTINE 21 MG/24 HR PATCH.TD24 TD SCH (09:37)
[2018-11-08] MEDS ORDERED: ACETAMINOPHEN 325 MG TABLET PO PRN (10:30)
[2018-11-08] MEDS ORDERED: OXYCODONE-ACETAMINOPHEN 5-325 MG TABLET PO PRN (10:30)
[2018-11-08] MEDS ORDERED: ALBUTEROL SULFATE HFA (90 MCG/PUFF) 200 PUFF/8.5 GM MDI IH PRN (10:30)
[2018-11-08] MEDS ORDERED: OXYCODONE HCL IR 5 MG TABLET PO PRN (10:30)
[2018-11-08 12:07] LABS: ABSOLUTE BASOPHILS # (AUTO) 0.1 10^3/uL (0.0-0.2); ABSOLUTE EOSINOPHILS # (AUTO) 0.2 10^3/uL (0.0-0.6); ABSOLUTE LYMPHOCYTES (AUTO) 2.2 10^3/uL (0.5-4.7); ABSOLUTE NEUT (AUTO) 5.2 10^3/uL (1.7-8.2); BASOPHILS % (AUTO) 1.3 % (0-2); EOSINOPHILS % (AUTO) 2.7 % (0-6); HEMOGLOBIN 13.4 g/dL (13.5-17.0); MEAN CORPUSCULAR HEMOGLOBIN 30.3 pg (27.0-33.4); MEAN CORPUSCULAR HGB CONC 34.4 g/dL (32.0-36.0); MEAN CORPUSCULAR VOLUME 88 fl (80-97); MONOCYTES % (AUTO) 10.9 % (3-13); PLATELET COUNT 438 10^3/uL (150-450); RED BLOOD COUNT 4.44 10^6/uL (4.35-5.55); SEGMENTED NEUTROPHILS % (AUTO) 60.1 % (42-78); TOTAL CELLS COUNTED % (AUTO) 100 %; WHITE BLOOD COUNT 8.7 10^3/uL (4.0-10.5)
[2018-11-08 12:38] LABS: ALANINE AMINOTRANSFERASE 31 U/L (21-72); ALBUMIN 3.5 g/dL (3.5-5.0); ALKALINE PHOSPHATASE 84 U/L (38-126); ANION GAP 10 (5-19); ASPARTATE AMINO TRANSFERASE 20 U/L (17-59); BILIRUBIN,DIRECT 0.3 mg/dL (0.0-0.4); BILIRUBIN,TOTAL 0.4 mg/dL (0.2-1.3); BLOOD UREA NITROGEN 12 mg/dL (7-20); CALCIUM 9.6 mg/dL (8.4-10.2); CARBON DIOXIDE 25 mmol/L (22-30); CHLORIDE 100 mmol/L (98-107); GLUCOSE 101 mg/dL (75-110); POTASSIUM 4.8 mmol/L (3.6-5.0); SODIUM 134.9 mmol/L (137-145); TOTAL PROTEIN 6.4 g/dL (6.3-8.2)
[2018-11-08] MEDS: FLUTICASONE NASAL SPRAY 50 MCG/SPRY 120 SPRAY/16 GM NASL SCH ×2 (14:46→21:10)
[2018-11-08] MEDS ORDERED: BUTALB/ACETAMINOPHEN/CAFFEINE 1 TAB EACH PO PRN (18:33)
[2018-11-08] MEDS ORDERED: ALPRAZOLAM 0.5 MG TABLET PO PRN (18:40)
--- NOTE | 2018-11-08 19:45 | PDOC PROGRESS REPORT ---
Subjective Progress Note for:: 11/08/18 Subjective:: This is a 43 yr old male with a PMH of polysubstance abuse, alcohol, tobacco dependent, chronic pain, and depression who was admitted and treated for bacterial meningitis. He has completed IV antibiotics and has significantly recovered and improved. However, he has been complaining of persistent periorbital headaches, throbbing in nature, worsened with bright light. No fever or chills. Reason For Visit: ALTERED MENTAL STATUS Physical Exam Vital Signs: Temp Pulse Resp BP Pulse Ox 98.4 F 82 16 105/62 99 11/08/18 16:00 11/08/18 16:00 11/08/18 16:00 11/08/18 16:00 11/08/18 16:00 Intake & Output 11/07/18 11/08/18 11/09/18 06:59 06:59 06:59 Intake Total 1370 2200 Output Total 650 Balance 1370 1550 Weight 156 lb 4.924 oz 153 lb 0.013 oz General appearance: PRESENT: no acute distress, well-developed, well-nourished Head exam: PRESENT: atraumatic, normocephalic Eye exam: PRESENT: conjunctiva pink, EOMI, PERRLA. ABSENT: scleral icterus Ear exam: PRESENT: normal external ear exam Mouth exam: PRESENT: moist, tongue midline Neck exam: ABSENT: carotid bruit, JVD, lymphadenopathy, thyromegaly Respiratory exam: PRESENT: clear to auscultation nas. ABSENT: rales, rhonchi, wheezes Cardiovascular exam: PRESENT: RRR. ABSENT: diastolic murmur, rubs, systolic murmur Pulses: PRESENT: normal dorsalis pedis pul GI/Abdominal exam: PRESENT: normal bowel sounds, soft. ABSENT: distended, guarding, mass, organolmegaly, rebound, tenderness Rectal exam: PRESENT: deferred Neurological exam: PRESENT: alert, awake, oriented to person, oriented to place, oriented to time, oriented to situation, CN II-XII grossly intact. ABSENT: m otor sensory deficit Results Laboratory Results: 11/08/18 11:43 11/08/18 11:43 11/08/18 11/08/18 11:43 11:43 WBC 8.7 RBC 4.44 Hgb 13.4 L Hct 39.0 MCV 88 MCH 30.3 MCHC 34.4 RDW 16.0 H Plt Count 438 Seg Neutrophils % 60.1 Lymphocytes % 25.0 Monocytes % 10.9 Eosinophils % 2.7 Basophils % 1.3 Absolute Neutrophils 5.2 Absolute Lymphocytes 2.2 Absolute Monocytes 1.0 Absolute Eosinophils 0.2 Absolute Basophils 0.1 Sodium 134.9 L Potassium 4.8 Chloride 100 Carbon Dioxide 25 Anion Gap 10 BUN 12 Creatinine 0.55 Est GFR ( Amer) > 60 Est GFR (Non-Af Amer) > 60 Glucose 101 Calcium 9.6 Total Bilirubin 0.4 AST 20 ALT 31 Alkaline Phosphatase 84 Total Protein 6.4 Albumin 3.5 10/27/18 10/27/18 10/27/18 15:45 18:20 18:20 Creatine Kinase Cancelled 143 Troponin I < 0.012 10/28/18 05:55 Creatine Kinase 242 H Troponin I Impressions: Chest X-Ray 10/28/18 00:00 IMPRESSION: No acute cardiopulmonary findings. Guidance Fluoroscopy 10/28/18 00:00 IMPRESSION: Lumbar puncture under fluoroscopy. No immediate complication. Lumbar Puncture 10/28/18 00:00 IMPRESSION: Lumbar puncture under fluoroscopy. No immediate complication. Head CT 11/03/18 00:00 IMPRESSION: NORMAL BRAIN CT WITHOUT CONTRAST. EVIDENCE OF ACUTE STROKE: NO. Assessment and Plan - Diagnosis (1) Acute encephalopathy Is this a current diagnosis for this admission?: Yes Plan: Resolved. From bacterial meningitis. (2) Bacterial meningitis Is this a current diagnosis for this admission?: Yes Plan: Resolved. Completed IV antibiotics. (3) Headache Is this a current diagnosis for this admission?: Yes Plan: He had some paranasal tenderness. Will give him some flonase today. His headache is likely a post meningitic sequelae and possibly may become chronic. Will add fioricet today and see if there is some relief. - Time Time Spent with patient: 15-24 minutes
[2018-11-09] MEDS: HEPARIN SOD (PORCINE) 5,000 UNIT/ML 1 ML SYRINGE SUBCUT SCH (06:19)
[2018-11-09] MEDS: GABAPENTIN 400 MG CAPSULE PO SCH (06:19)
[2018-11-09] MEDS ORDERED: KETOROLAC TROMETHAMINE INJ/PF 30 MG/1 ML SDV IV ONE (10:30)
[2018-11-09] MEDS: FLUTICASONE NASAL SPRAY 50 MCG/SPRY 120 SPRAY/16 GM NASL SCH (11:09)
[2018-11-09] MEDS: LISINOPRIL 10 MG TABLET PO SCH (11:09)
[2018-11-09] MEDS: NICOTINE 21 MG/24 HR PATCH.TD24 TD SCH (11:09)
[2018-11-09 12:42] VITALS: BP 105/62
--- NOTE | 2018-11-10 21:48 | PDOC DISCHARGE SUMMARY ---
General - Admit/Disc Date/PCP Admission Date/Primary Care Provider: 10/28/18 11:10 GODFREY TERRAZAS MD Discharge Date: 11/09/18 - Discharge Diagnosis (1) Acute encephalopathy Is this a current diagnosis for this admission?: Yes (2) Bacterial meningitis Is this a current diagnosis for this admission?: Yes (3) Headache Is this a current diagnosis for this admission?: Yes - Additional Information Resuscitation Status: Full Code Discharge Diet: Cardiac Discharge Activity: Activity As Tolerated Prescriptions: Fluticasone Propionate [Flonase Nasal [place] 50 Mcg/[place] 16 gm] 1 spray NASL Q12 #1 spray.pump Gabapentin 600 mg PO Q8H PRN #60 tablet PRN Reason: Tramadol HCl [Ultram 50 mg Tablet] 50 mg PO Q12HP PRN #12 tablet PRN Reason: Home Medications: Albuterol Sulfate [Proair HFA Inhalation Aerosol 8.5 gm MDI] 2 puff IH Q4HP PRN 10/28/18 Lisinopril 20 mg PO DAILY 10/28/18 Ranitidine HCl [Zantac 150 mg Tablet] 150 mg PO BID 10/28/18 Acetaminophen [Tylenol 325 mg Tablet] 325 mg PO Q4HP PRN tablet 11/09/18 Fluticasone Propionate [Flonase Nasal [place] 50 Mcg/[place] 16 gm] 1 spray NASL Q12 #1 spray.pump 11/09/18 Gabapentin 600 mg PO Q8H PRN #60 tablet 11/09/18 Tramadol HCl [Ultram 50 mg Tablet] 50 mg PO Q12HP PRN #12 tablet 11/09/18 History of Present Illness History of Present Illness: Admitting hospitalist's H&P: CUCO SETHI is a 43 year old male with a past medical history of polysubstance abuse, alcohol, tobacco dependent, chronic pain, depression suicide attempt by overdose. Patient is unable to provide history and subsequently history is obtained by the medical record of the emergency room provider. Patient was found disheveled, on the ground awake, alert and oriented x0, nonverbal moving all 4 extremities at home with empty bottles of Valium and oxycodone last seen normal by his power of claims attorney and sister 3 days ago. He is brought to the emergency room and received Narcan without significant response he remains awake and alert moving all 4 extremities and withdrawing f rom noxious stimuli. He has fever, leukocytosis no obvious source of infection, urine drug screen is positive for THC. Hospital Course Hospital Course: This is a 43 yr old male with a PMH of polysubstance abuse, alcohol, tobacco dependent, chronic pain, and depression who was admitted and found to have bacterial meningitis. He had an LP done and CSF analysis was consistent with bacterial meningitis. He was started on ceftriaxone, vancomycin and dexamethasone He has completed IV antibiotics and has significantly recovered and improved. He returned to his baseline mentation. However, did have residual headaches likely a post meningitic sequelae. This did continue to improve gradually. Physical Exam Vital Signs: Temp Pulse Resp BP Pulse Ox 98.7 F 75 16 105/62 98 11/09/18 12:37 11/09/18 12:37 11/09/18 12:37 11/09/18 12:37 11/09/18 12:37 Intake & Output 11/09/18 11/10/18 11/11/18 06:59 06:59 06:59 Intake Total 222 Balance 222 Weight 152 lb 5.431 oz General appearance: PRESENT: no acute distress, well-developed, well-nourished Head exam: PRESENT: atraumatic, normocephalic Eye exam: PRESENT: conjunctiva pink, EOMI, PERRLA. ABSENT: scleral icterus Ear exam: PRESENT: normal external ear exam Mouth exam: PRESENT: moist, tongue midline Neck exam: ABSENT: carotid bruit, JVD, lymphadenopathy, thyromegaly Respiratory exam: PRESENT: clear to auscultation nas. ABSENT: rales, rhonchi, wheezes Cardiovascular exam: PRESENT: RRR. ABSENT: diastolic murmur, rubs, systolic murmur Pulses: PRESENT: normal dorsalis pedis pul GI/Abdominal exam: PRESENT: normal bowel sounds, soft. ABSENT: distended, guarding, mass, organolmegaly, rebound, tenderness Rectal exam: PRESENT: deferred Extremities exam: PRESENT: full ROM. ABSENT: calf tenderness, clubbing, pedal edema Neurological exam: PRESENT: alert, awake, oriented to person, oriented to place, oriented to time, oriented to situation, CN II-XII grossly intact. ABSENT: motor sensory deficit Results Laboratory Results: 11/08/18 11:43 11/08/18 11:43 0310/27/18 10/27/18 15:45 18:20 18:20 Creatine Kinase Cancelled 143 Troponin I < 0.012 10/28/18 05:55 Creatine Kinase 242 H Troponin I Impressions: Chest X-Ray 10/28/18 00:00 IMPRESSION: No acute cardiopulmonary findings. Guidance Fluoroscopy 10/28/18 00:00 IMPRESSION: Lumbar puncture under fluoroscopy. No immediate complication. Lumbar Puncture 10/28/18 00:00 IMPRESSION: Lumbar puncture under fluoroscopy. No immediate complication. Head CT 11/03/18 00:00 IMPRESSION: NORMAL BRAIN CT WITHOUT CONTRAST. EVIDENCE OF ACUTE STROKE: NO. Qualifiers - * PATIENT BEING DISCHARGED WITH ANY OF THE FOLLOWING DIAGNOSIS: No
== END 2018-11-09 13:30 | disposition home or self-care (01) | DRG 871 ==
LOC: ER 16:27 → EH 22:24 → INTOOBSV 22:24 → EH 10-28 03:12 → OBSVTOIN 10-28 11:10 → ICU 10-28 18:00 → 3S 10-31 12:04
PROVIDERS: ADMIT Internal Medicine; ATTEND Internal Medicine
PROC: 009U3ZX Drainage of Spinal Canal, Percutaneous Approach, Diagnostic (ICD-10-PCS; principal; 2018-10-28)
DX: A40.3 Sepsis due to Streptococcus pneumoniae (principal); G00.1 Pneumococcal meningitis; G92 Toxic encephalopathy; E87.1 Hypo-osmolality and hyponatremia; G89.29 Other chronic pain; F32.9 Major depressive disorder, single episode, unspecified; F17.200 Nicotine dependence, unspecified, uncomplicated; R82.5 Elevated urine levels of drugs, medicaments and biological substances; I10 Essential (primary) hypertension; E11.9 Type 2 diabetes mellitus without complications; K21.9 Gastro-esophageal reflux disease without esophagitis; M19.90 Unspecified osteoarthritis, unspecified site; F14.90 Cocaine use, unspecified, uncomplicated; F15.90 Other stimulant use, unspecified, uncomplicated; F12.90 Cannabis use, unspecified, uncomplicated; T65.891A Toxic effect of other specified substances, accidental (unintentional), initial encounter; T50.995A Adverse effect of other drugs, medicaments and biological substances, initial encounter; F10.20 Alcohol dependence, uncomplicated; E87.6 Hypokalemia; S00.81XA Abrasion of other part of head, initial encounter; S40.812A Abrasion of left upper arm, initial encounter; S40.811A Abrasion of right upper arm, initial encounter; Z88.8 Allergy status to other drugs, medicaments and biological substances
CPT/HCPCS: 36415; 36600; 62270; 70450; 71045; 77003; 80048; 80053; 80202; 80307; 81001; 82550; 82565; 82803; 82945; 82962; 83036; 83605; 83735; 84157; 84484; 85025; 85610; 87040; 87070; 87077; 87086; 87186; 87205; 87250; 87529; 89050; 93005; 93010; 94660; 96361; 96374; 99285; J0360; J0696; J1100; J1644; J1815; J1885; J1940; J1956; J2060; J2310; J2930; J3010; J3370; J3475; J3490; J7030; J7060; J7120; J7620